=== PATIENT | male | born 1965 | race Caucasian/White ===

== ENCOUNTER 2018-02-17 17:08 | Inpatient (IN) ==
[2018-02-17] MEDS ORDERED: 0.9 % Sodium Chloride 1,000 ML IVC ONE ×2 (17:31→18:39)
[2018-02-17 17:40] LABS: Basophils # 0.1 K/mcL (0.0-0.2); Basophils % 0.4 %; Eosinophils % 0.1 %; Hematocrit 36.3 % (37.5-50.1); Hemoglobin 11.6 g/dL (12.9-16.9); Immature Granulocytes % 0.3 % (0-4); Lymphocytes # 2.2 K/mcL (0.6-4.6); Lymphocytes % 14.9 %; Mean Corpuscular Volume 81.4 fL (83.0-100.0); Mean Platelet Volume 8.4 fL (9.4-12.4); Monocytes % 6.7 %; Neutrophils # 11.5 K/mcL (1.6-8.9); Platelet Count 533 K/mcL (140-400); Red Blood Count 4.46 M/mcL (4.19-5.50); Red Cell Distribution Width 14.6 % (11.5-14.5); Segmented Neutrophils % 77.6 %
--- NOTE | 2018-02-17 17:55 | Emergency Department Note ---
Disposition Clinical Impression: Osteomyelitis, Pressure sore of left ischium, stage 4, Right ischial pressure sore, stage 4 Disposition: Admitted As Inpatient Condition: Fair General Adult HPI - General Chief complaint: ED Fever Stated complaint: "fever, bed sore" Time Seen by Provider: 02/17/18 17:20 Source: patient - History of Present Illness Pain Scale: 8 - Related Data Home Medications Medication Instructions Recorded Confirmed Baclofen 20 mg PO QID 09/19/15 02/17/18 Gabapentin [Neurontin] 800 mg PO QID 09/19/15 02/17/18 diazePAM [Valium] 1 mg PO TID 09/19/15 02/17/18 Morphine Sulfate/Naltrexone 2 tab PO BID 08/26/17 02/17/18 [Embeda ER 100-4 mg Capsule] Oxycodone HCl [Oxycontin] 20 mg PO QID 08/26/17 02/17/18 Allergies Allergy/AdvReac Type Severity Reaction Status Date / Time No Known Allergies Allergy Verified 02/17/18 17:16 Past Medical History - Past Medical History Medical history: Reports: other Surgical history: Reports: colostomy, vasectomy, other Psychiatric history: Reports: anxiety, depression - Social History Smoking Status: Current every day smoker Smokeless Tobacco Status: No Alcohol use: Reports: none Drug use: Reports: none Physical Exam - General General appearance: alert, in no apparent distress Course Vital Signs Temperature 98.5 F 02/17/18 17:16 Pulse Rate 102 02/17/18 17:16 Respiratory Rate 18 02/17/18 17:16 Blood Pressure 117/62 02/17/18 17:16 O2 Sat by Pulse Oximetry 95 02/17/18 17:16 Temperature 98.5 F 02/17/18 17:16 Pulse Rate 102 02/17/18 17:16 Respiratory Rate 18 02/17/18 17:16 Blood Pressure 117/62 02/17/18 17:16 O2 Sat by Pulse Oximetry 95 02/17/18 17:16 Oxygen Delivery Oxygen Delivery Room Air Medical Decision Making - Lab Data Result diagrams: 02/17/18 17:28 02/17/18 17:28 Lab Results 02/17/18 02/17/18 02/17/18 Range/Units 17:28 17:28 17:28 WBC 14.9 H (4.3-11.1) K/mcL RBC 4.46 (4.19-5.50) M/mcL Hgb 11.6 L (12.9-16.9) g/dL Hct 36.3 L (37.5-50.1) % MCV 81.4 L (83.0-100.0) fL MCH 26.0 L (28.0-33.3) pg MCHC 32.0 (31.6-35.5) g/dL RDW 14.6 H (11.5-14.5) % Plt Count 533 H (140-400) K/mcL MPV 8.4 L (9.4-12.4) fL Immature Gran % 0.3 (0-4) % Seg Neutrophils % 77.6 % Lymphocytes % 14.9 % Monocytes % 6.7 % Eosinophils % 0.1 % Basophils % 0.4 % Neutrophils # 11.5 H (1.6-8.9) K/mcL Lymphocytes # 2.2 (0.6-4.6) K/mcL Monocytes # 1.0 (0.0-1.3) K/mcL Eosinophils # 0.0 (0.0-0.6) K/mcL Basophils # 0.1 (0.0-0.2) K/mcL ESR >= 130 H (0-10) mm/hr Sodium 127 L (136-145) mEq/L Potassium 3.8 (3.5-5.1) mEq/L Chloride 93 L (98-107) mEq/L Carbon Dioxide 24 (23-29) mEq/L BUN 4 L (6-20) mg/dL Creatinine 0.53 L (0.70-1.30) mg/dL Est GFR ( Amer) > 60 (> 60) Est GFR (Non-Af Amer) > 60 (> 60) BUN/Creatinine Ratio 8 (6-26) Glucose 141 H (70-105) mg/dL Calculated Osmolality 263 L (280-300) Lactic Acid (0.5-2.2) mmol/L Calcium 8.5 L (8.6-10.3) mg/dL C-Reactive Protein 195 H (Less than 10) mg/L 02/17/18 Range/Units 17:43 WBC (4.3-11.1) K/mcL RBC (4.19-5.50) M/mcL Hgb (12.9-16.9) g/dL Hct (37.5-50.1) % MCV (83.0-100.0) fL MCH (28.0-33.3) pg MCHC (31.6-35.5) g/dL RDW (11.5-14.5) % Plt Count (140-400) K/mcL MPV (9.4-12.4) fL Immature Gran % (0-4) % Seg Neutrophils % % Lymphocytes % % Monocytes % % Eosinophils % % Basophils % % Neutrophils # (1.6-8.9) K/mcL Lymphocytes # (0.6-4.6) K/mcL Monocytes # (0.0-1.3) K/mcL Eosinophils # (0.0-0.6) K/mcL Basophils # (0.0-0.2) K/mcL ESR (0-10) mm/hr Sodium (136-145) mEq/L Potassium (3.5-5.1) mEq/L Chloride (98-107) mEq/L Carbon Dioxide (23-29) mEq/L BUN (6-20) mg/dL Creatinine (0.70-1.30) mg/dL Est GFR ( Amer) (> 60) Est GFR (Non-Af Amer) (> 60) BUN/Creatinine Ratio (6-26) Glucose (70-105) mg/dL Calculated Osmolality (280-300) Lactic Acid 1.5 (0.5-2.2) mmol/L Calcium (8.6-10.3) mg/dL C-Reactive Protein (Less than 10) mg/L Attestation Statement - Attestation Attestation: I examined this patient and my medical decision-making was reviewed with the Resident Physician. I agree with the documented findings, disposition and treatment plan as described except to the extent set forth below. Patient presents to the ED with chief complaint of infected sores. Fevers. Sent over from wound care. On examination he has a large full-thickness open wound to the left buttock. There is a small amount right as well. Foul- smelling serous drainage. Plan. Septic workup and admission. Patient with elevated white count. Afebrile here. Started on broad-spectrum antibiotics admitted to medicine.
[2018-02-17 18:03] LABS: BUN/Creatinine Ratio 8 (6-26); Blood Urea Nitrogen 4 mg/dL (6-20); C-Reactive Protein 195 mg/L (Less than 10); Calcium 8.5 mg/dL (8.6-10.3); Carbon Dioxide 24 mEq/L (23-29); Chloride 93 mEq/L (98-107); Glucose 141 mg/dL (70-105); Osmolality,Calculated 263 (280-300); Potassium 3.8 mEq/L (3.5-5.1); Sodium 127 mEq/L (136-145); eGFR For African Americans > 60 (> 60); eGFR For Non-African Americans > 60 (> 60)
[2018-02-17] MEDS ORDERED: Levofloxacin 750 MG/150 ML 750 MG/150 ML BAG IVPB ONE (18:39)
[2018-02-17] MEDS ORDERED: Piperacillin/Tazobactam 3.375 GM in 0.9 % Sodium Chloride Mini Bag 100 ML IVPB ONE (18:39)
--- NOTE | 2018-02-17 18:42 | Emergency Department Note ---
Disposition Clinical Impression: Pressure sore of left ischium, stage 4, Right ischial pressure sore, stage 4 Osteomyelitis Qualifiers: Osteomyelitis type: unspecified type Osteomyelitis location: multiple sites Qualified Code(s): M86.9 - Osteomyelitis, unspecified Disposition: Admitted As Inpatient Condition: Fair Referrals: NONE,PCP [Primary Care Provider] - Time of Disposition: 19:21 General Adult HPI - General Chief complaint: ED Fever Stated complaint: "fever, bed sore" Time Seen by Provider: 02/17/18 17:20 Source: patient Nursing Notes Reviewed: Yes Vital Signs Reviewed: Yes - History of Present Illness HPI Narrative: 52-year-old male presents emergency department with concern for gluteal wounds. Patient was sent here by Dr. Maldonado for admission to the hospital. He told patient to go to the emergency department first. Patient states that he has had fevers over the last few days and that there was concern for osteomyelitis. Patient is a paraplegic after falling 3 stories from a building and sustaining a back injury in 1993. Patient states that his wounds have been managed for over a year and he has had that have antibiotics before. Pain Scale: 8 - Related Data Home Medications Medication Instructions Recorded Confirmed Baclofen 20 mg PO QID 09/19/15 02/17/18 Gabapentin [Neurontin] 800 mg PO QID 09/19/15 02/17/18 diazePAM [Valium] 1 mg PO TID 09/19/15 02/17/18 Morphine Sulfate/Naltrexone 2 tab PO BID 08/26/17 02/17/18 [Embeda ER 100-4 mg Capsule] Oxycodone HCl [Oxycontin] 20 mg PO QID 08/26/17 02/17/18 Allergies Allergy/AdvReac Type Severity Reaction Status Date / Time No Known Allergies Allergy Verified 02/17/18 17:16 All systems ED: reviewed and negative except as stated. Review of Systems: As Per HPI Constitutional: Reports: fever Cardiovascular: Denies: chest pain Respiratory: Denies: cough Gastrointestinal: Denies: abdominal pain, nausea, vomiting Musculoskeletal: Reports: back pain Integumentary: Reports: other (Sacral decubiti) Past Medical History - Past Medical History Medical history: Reports: other Surgical history: Reports: colostomy, vasectomy, other Psychiatric history: Reports: anxiety, depression - Social History Smoking Status: Current every day smoker Smokeless Tobacco Status: No Alcohol use: Reports: none Drug use: Reports: none Physical Exam - General General appearance: alert, in no apparent distress - Head Head exam: atraumatic, normocephalic - Eye Eye exam: Present: EOMI. Absent: scleral icterus - ENT ENT exam: normal exam, normal oropharynx - Neck Neck exam: Present: trachea midline. Absent: tenderness, meningismus - Chest Chest inspection: Present: normal inspection, symmetric chest wall rise - Respiratory Respiratory exam: Present: normal lung sounds bilaterally. Absent: respiratory distress, accessory muscle use - Cardiovascular Cardiovascular exam: Present: normal rhythm, tachycardia - Abdominal Exam Abdominal exam: Present: soft, Non-Tender. Absent: distention, guarding, rebound - Rectal Exam Rectal exam: Present: other (Patient has 2 sacral decubiti that track to bone in the gluteal region. One is approximately 6 inches in diameter, the other 3 inches in diameter Muscle and bone involvement, serosanguineous fluid, malodorous) - Back Exam Back exam: Absent: CVA tenderness (R), CVA tenderness (L) - Neurological Exam Neurological exam: Present: alert - Psychiatric Psychiatric exam: Present: normal affect, normal mood Course Vital Signs Temperature 98.5 F 02/17/18 17:16 Pulse Rate 102 02/17/18 17:16 Respiratory Rate 18 02/17/18 17:16 Blood Pressure 117/62 02/17/18 17:16 O2 Sat by Pulse Oximetry 95 02/17/18 17:16 Temperature 98.5 F 02/17/18 17:16 Pulse Rate 102 02/17/18 17:16 Respiratory Rate 18 02/17/18 17:16 Blood Pressure 117/62 02/17/18 17:16 O2 Sat by Pulse Oximetry 95 02/17/18 17:16 Oxygen Delivery Oxygen Delivery Room Air Medical Decision Making - [facility] Narrative Medical decision making narrative: 52-year-old male presents emergency department with concern for osteomyelitis. Sent here by general surgeon Dr. Maldonado. Patient states that he was sent here specifically for admission to the hospital. Patient was reporting fever at home , but afebrile here. Tachycardic. Patient is given 2 L of fluid here in the emergency department. On exam of sacral wounds, he has two stage IV pressure ulcers in the gluteal region. I have obtained wound cultures both aerobic and anaerobic. Patient was given vancomycin here in the emergency department as well as Zosyn and Levaquin to add double coverage for pseudomonas. Patient does not have elevated lactic acid. Patient is hyponatremic with sodium of 127. At this time, this is most likely hypovolemic hypernatremia. However, I will obtain TSH and urine sodium to be followed up in the hospital. Sedimentation rate is greater than 130. CRP is elevated as well. General surgery consult has been placed. I spoke with hospitalist, Dr. Puente who agreed to accept the patient for admission. Stated to keep patient on telemetry while inpatient. Vital Signs Temperature 98.5 F 02/17/18 17:16 Pulse Rate 102 02/17/18 17:16 Respiratory Rate 18 02/17/18 17:16 Blood Pressure 117/62 02/17/18 17:16 O2 Sat by Pulse Oximetry 95 02/17/18 17:16 Temperature 98.5 F 02/17/18 17:16 Pulse Rate 102 02/17/18 17:16 Respiratory Rate 18 02/17/18 17:16 Blood Pressure 117/62 02/17/18 17:16 O2 Sat by Pulse Oximetry 95 02/17/18 17:16 Oxygen Delivery Oxygen Delivery Room Air - Lab Data Result diagrams: 02/17/18 17:28 02/17/18 17:28 Lab Results 02/17/18 02/17/18 02/17/18 Range/Units 17:28 17:28 17:28 WBC 14.9 H (4.3-11.1) K/mcL RBC 4.46 (4.19-5.50) M/mcL Hgb 11.6 L (12.9-16.9) g/dL Hct 36.3 L (37.5-50.1) % MCV 81.4 L (83.0-100.0) fL MCH 26.0 L (28.0-33.3) pg MCHC 32.0 (31.6-35.5) g/dL RDW 14.6 H (11.5-14.5) % Plt Count 533 H (140-400) K/mcL MPV 8.4 L (9.4-12.4) fL Immature Gran % 0.3 (0-4) % Seg Neutrophils % 77.6 % Lymphocytes % 14.9 % Monocytes % 6.7 % Eosinophils % 0.1 % Basophils % 0.4 % Neutrophils # 11.5 H (1.6-8.9) K/mcL Lymphocytes # 2.2 (0.6-4.6) K/mcL Monocytes # 1.0 (0.0-1.3) K/mcL Eosinophils # 0.0 (0.0-0.6) K/mcL Basophils # 0.1 (0.0-0.2) K/mcL ESR >= 130 H (0-10) mm/hr Sodium 127 L (136-145) mEq/L Potassium 3.8 (3.5-5.1) mEq/L Chloride 93 L (98-107) mEq/L Carbon Dioxide 24 (23-29) mEq/L BUN 4 L (6-20) mg/dL Creatinine 0.53 L (0.70-1.30) mg/dL Est GFR ( Amer) > 60 (> 60) Est GFR (Non-Af Amer) > 60 (> 60) BUN/Creatinine Ratio 8 (6-26) Glucose 141 H (70-105) mg/dL Calculated Osmolality 263 L (280-300) Lactic Acid (0.5-2.2) mmol/L Calcium 8.5 L (8.6-10.3) mg/dL C-Reactive Protein 195 H (Less than 10) mg/L 02/17/18 Range/Units 17:43 WBC (4.3-11.1) K/mcL RBC (4.19-5.50) M/mcL Hgb (12.9-16.9) g/dL Hct (37.5-50.1) % MCV (83.0-100.0) fL MCH (28.0-33.3) pg MCHC (31.6-35.5) g/dL RDW (11.5-14.5) % Plt Count (140-400) K/mcL MPV (9.4-12.4) fL Immature Gran % (0-4) % Seg Neutrophils % % Lymphocytes % % Monocytes % % Eosinophils % % Basophils % % Neutrophils # (1.6-8.9) K/mcL Lymphocytes # (0.6-4.6) K/mcL Monocytes # (0.0-1.3) K/mcL Eosinophils # (0.0-0.6) K/mcL Basophils # (0.0-0.2) K/mcL ESR (0-10) mm/hr Sodium (136-145) mEq/L Potassium (3.5-5.1) mEq/L Chloride (98-107) mEq/L Carbon Dioxide (23-29) mEq/L BUN (6-20) mg/dL Creatinine (0.70-1.30) mg/dL Est GFR ( Amer) (> 60) Est GFR (Non-Af Amer) (> 60) BUN/Creatinine Ratio (6-26) Glucose (70-105) mg/dL Calculated Osmolality (280-300) Lactic Acid 1.5 (0.5-2.2) mmol/L Calcium (8.6-10.3) mg/dL C-Reactive Protein (Less than 10) mg/L
[2018-02-17 19:46] LABS: Thyroid Stimulating Hormone 1.178 mcIU/mL (0.340-5.600)
--- NOTE | 2018-02-17 19:50 | General Surgery Consult Note ---
Date of Encounter: 02/17/18 Time of Encounter: 19:48 Assessment and Plan (1) Pressure sore of left ischium, stage 4 Current Visit: Yes Status: Chronic admit start IV abx consult to ID wet to dry dressings daily changes no acute surgery q2hrs turns for pressure off loading (2) Osteomyelitis Current Visit: Yes Status: Acute see above Qualifiers: Osteomyelitis type: unspecified type Osteomyelitis location: multiple sites Qualified Code(s): M86.9 - Osteomyelitis, unspecified History of Present Illness Consult date: 02/17/18 Reason for consult: wound care History of present illness: Mr. Bhardwaj is a 52 year old male with bilateral ischial wounds. He is well known to the wound clinic. he presented for evaluation in the wound clinic and it was noticed that there was exposure of bone. In addition, he had temperature of 100.8 and feeling generalized malaise and tachycardic in wound clinic. Past Med Surg Social Fam HX - Past Medical History Medical history: other Additional medical history: paraplegia, osteomylitis Psychiatric history: anxiety, depression - Past Surgical History Surgical History: colostomy, vasectomy, other Additional surgical history: myocutaneous flap right ishium - Social History Smoking Status: Current every day smoker Smokeless Tobacco Status: No Alcohol use: none Drug use: none - Family History Mother Adopted: No Family Member Ethnicity: Non- Living Status: Still Living Hx Family Cardiac Disorders: No Hx Family Respiratory Disorders: No Hx Family Cancer: No Hx Family GI Disorders: No Hx Family Endocrine Disorder: Yes Hx Family Neuromuscular Disorders: No Hx Family Neurologic Disorders: No Hx Family HEENT Disorders: No Hx Family Autoimmune Disorders: No Brother Adopted: No Living Status: Still Living Hx Family Cardiac Disorders: No Hx Family Respiratory Disorders: No Hx Family Cancer: No Hx Family GI Disorders: No Hx Family Endocrine Disorder: No Hx Family Neuromuscular Disorders: No Hx Family Neurologic Disorders: No Hx Family HEENT Disorders: No Hx Family Autoimmune Disorders: No Medications and Allergies Baclofen 20 mg PO QID 09/19/15 [History] Gabapentin [Neurontin] 800 mg PO QID 09/19/15 [History] diazePAM [Valium] 1 mg PO TID 09/19/15 [History] Morphine Sulfate/Naltrexone [Embeda ER 100-4 mg Capsule] 2 tab PO BID 08/26/17 [ History] Oxycodone HCl [Oxycontin] 20 mg PO QID 08/26/17 [History] 3 Allergy/AdvReac Type Severity Reaction Status Date / Time No Known Allergies Allergy Verified 02/17/18 17:16 Review of Systems All systems PM: The remainder of the systems were reviewed and are negative General Surgery Exam Initial Vital Signs Temp Pulse Resp BP Pulse Ox 98.5 F 102 18 117/62 95 02/17/18 17:16 02/17/18 17:16 02/17/18 17:16 02/17/18 17:16 02/17/18 17:16 - General physical appearance no distress - Eyes normal ocular movement - ENT normocephalic - Neck no lymphadectomy - Respiratory normal expansion, normal respiratory effort - Cardiovascular Cardiovascular exam: Present: RRR - Abdomen Abdomen general surgery: Present: soft, non tender - Rectum Rectum: Present: other (bilateral ischial wounds; good, viable tissue; exposure of bone; ) - Neurologic Present: CN 2-12 grossly intact - Musculoskeletal Present: normal posture - Psychiatric Psychiatric general surgery: Present: A&Ox3 Exam Initial Vital Signs Temp Pulse Resp BP Pulse Ox 98.5 F 102 18 117/62 95 02/17/18 17:16 02/17/18 17:16 02/17/18 17:16 02/17/18 17:16 02/17/18 17:16 Results - Labs 02/17/18 17:28 02/17/18 17:28 Abnormal lab results WBC 14.9 K/mcL (4.3-11.1) H 02/17/18 17:28 Hgb 11.6 g/dL (12.9-16.9) L 02/17/18 17:28 Hct 36.3 % (37.5-50.1) L 02/17/18 17:28 MCV 81.4 fL (83.0-100.0) L 02/17/18 17:28 MCH 26.0 pg (28.0-33.3) L 02/17/18 17:28 RDW 14.6 % (11.5-14.5) H 02/17/18 17:28 Plt Count 533 K/mcL (140-400) H 02/17/18 17:28 MPV 8.4 fL (9.4-12.4) L 02/17/18 17:28 Neutrophils # 11.5 K/mcL (1.6-8.9) H 02/17/18 17:28 ESR >= 130 mm/hr (0-10) H 02/17/18 17:28 Sodium 127 mEq/L (136-145) L 02/17/18 17:28 Chloride 93 mEq/L (98-107) L 02/17/18 17:28 BUN 4 mg/dL (6-20) L 02/17/18 17:28 Creatinine 0.53 mg/dL (0.70-1.30) L 02/17/18 17:28 Glucose 141 mg/dL (70-105) H 02/17/18 17:28 Calculated Osmolality 263 (280-300) L 02/17/18 17:28 Calcium 8.5 mg/dL (8.6-10.3) L 02/17/18 17:28 C-Reactive Protein 195 mg/L (Less than 10) H 02/17/18 17:28 All other labs normal. Consult Discharge Plan - Plan Referrals: NONE,PCP [Primary Care Provider] -
--- NOTE | 2018-02-17 23:54 | Internal Med History&Physical ---
Date of Encounter: 02/17/18 Time of Encounter: 23:45 Internal Medicine - H&P: HPI Admitted From: Emergency Dept Plans for Post Hospital Care: Transfer Alf Care History of present illness: Mr. Bhardwaj is a 52 year old male malnutrition, traumatic injury (pt fell 3 stories from a roof at his job in 1993), quadraplegia secondary to injury, stage IV decub ulcer. Pt was sent to the ED by general surgery from wound care. Dr. Maldonado had seen the patient and was concerned he may have osteomylitis. Pt was drowsy but responded appropriately to my questions when awake. He reported in ED that he had been having fevers over the past few days. Pt reported hat his wound has been managed for a year. He also reports that he had been on antibiotic previously for the wound. Pt reports that he has lost most of his sensations from his back/shoulder blades to is B/L LE. In Ed 14.9, hgb 11.6, hct 36.3, plt 533. Na 127, K 3.8, BUN 4, Cr 0.53. C-reactive protein 195 Past Med Surg Social Fam HX - Past Medical History Medical history: other Additional medical history: paraplegia, osteomylitis Psychiatric history: anxiety, depression - Past Surgical History Surgical History: colostomy, vasectomy, other Additional surgical history: myocutaneous flap right ishium - Social History Smoking Status: Current every day smoker Packs per day: 1 Smokeless Tobacco Status: No Alcohol use: none Drug use: none - Family History Mother Adopted: No Family Member Ethnicity: Non- Living Status: Still Living Hx Family Cardiac Disorders: No Hx Family Respiratory Disorders: No Hx Family Cancer: No Hx Family GI Disorders: No Hx Family Endocrine Disorder: Yes Hx Family Neuromuscular Disorders: No Hx Family Neurologic Disorders: No Hx Family HEENT Disorders: No Hx Family Autoimmune Disorders: No Brother Adopted: No Living Status: Still Living Hx Family Cardiac Disorders: No Hx Family Respiratory Disorders: No Hx Family Cancer: No Hx Family GI Disorders: No Hx Family Endocrine Disorder: No Hx Family Neuromuscular Disorders: No Hx Family Neurologic Disorders: No Hx Family HEENT Disorders: No Hx Family Autoimmune Disorders: No Internal Medicine - H&P: Meds Baclofen 20 mg PO QID 09/19/15 [History] Gabapentin [Neurontin] 800 mg PO QID 09/19/15 [History] diazePAM [Valium] 1 mg PO TID 09/19/15 [History] Morphine Sulfate/Naltrexone [Embeda ER 100-4 mg Capsule] 2 tab PO BID 08/26/17 [ History] Oxycodone HCl [Oxycontin] 20 mg PO QID 08/26/17 [History] 3 Allergy/AdvReac Type Severity Reaction Status Date / Time No Known Allergies Allergy Verified 02/17/18 17:16 All Systems PM: A 10-system review of systems was performed and is negative for pertinent findings except as documented above in the HPI. - Constitutional Vitals: Temp Pulse Resp BP Pulse Ox 98.5 F 87 16 95/59 98 02/17/18 21:36 02/17/18 21:36 02/17/18 21:36 02/17/18 21:36 02/17/18 21:36 General appearance: Present: A&O X 3, no acute distress, underweight - Head Head exam: Present: atraumatic, normocephalic - Eye Eye exam: Present: PERRL, conjuntiva pink, sclera anicteric Pupils: Present: PERRL - Neck Neck exam general surgery: Present: supple, trachea midline. Absent: lymphadenopathy - Respiratory Respiratory exam: Present: CTAB. Absent: accessory muscle use, rales, rhonchi, wheezes - Cardiovascular Cardiovascular exam: Present: RRR, +S1, +S2. Absent: diastolic murmur, gallop, rubs, systolic murmur - GI/Abdominal GI/Abdominal exam: Present: normal bowel sounds, soft, no peritoneal signs. Absent: distended, tenderness - Extremities Exam Extremities exam: Present: warm, radial pulses palpable and symmetrical. Absent : calf tenderness, cyanotic, pedal edema - Neurological Exam Neurological exam: Present: CN II-XII intact, oriented X3, no focal deficits. Absent: pronater drift, facial droop, speech deficit - Skin Skin exam: Present: dry Additional comments: Large stage IV sacral decub ulcer. Bilateral ishial wounds, open to the bone. Internal Med - H&P Results - Labs CBC & Chem 7: 02/17/18 17:28 02/17/18 17:28 - Assessment and plan (1) Pressure sore of left ischium, stage 4 Current Visit: Yes Status: Chronic Assessment and plan: Surgery following (2) Osteomyelitis Current Visit: Yes Status: Acute Assessment and plan: Pt sent over for admission by surgery. Surgery on board. On IV antibiotic. Qualifiers: Osteomyelitis type: unspecified type Osteomyelitis location: multiple sites Qualified Code(s): M86.9 - Osteomyelitis, unspecified (3) Quadriplegia Current Visit: Yes Status: Chronic - Time Spent With Patient Total time spent is greater than 50% in coordination of care (as documented) at patient's floor/unit and/or counseling patient: 25 - 35 minutes
[2018-02-18] MEDS ORDERED: Acetaminophen 325 MG TABLET PO PRN (00:19)
[2018-02-18] MEDS ORDERED: Naloxone 0.4 MG/ML INJ IVP PRN (00:19)
[2018-02-18 00:29] LABS: Bilirubin,Urine Negative (Negative); Blood,Urine Trace (Negative); Clarity,Urine Cloudy (Clear); Color,Urine Yellow (Yellow); Glucose,Urine (UA) Normal (Normal); Ketones,Urine Negative (Negative); Leukocyte Esterase,Urine Large (Negative); Nitrite,Urine Negative (Negative); Protein,Urine Negative (Neg-Trace); Specific Gravity,Urine 1.009 (1.010-1.025); Urobilinogen,Urine Normal (Normal)
[2018-02-18 00:44] LABS: Bacteria,Urine Moderate per hpf (None-Few); Squamous Epithelial Cell,Urine Few per lpf (None-Few); WBC,Urine 15-30 per hpf (0-3)
[2018-02-18 00:45] LABS: Yeast,Urine Few per hpf (None Seen)
[2018-02-18 05:03] LABS: Basophils % 0.4 %; Eosinophils % 0.3 %; Hematocrit 33.5 % (37.5-50.1); Hemoglobin 10.4 g/dL (12.9-16.9); Immature Granulocytes % 0.5 % (0-4); Lymphocytes # 2.5 K/mcL (0.6-4.6); Lymphocytes % 24.1 %; Mean Corpuscular Hemoglobin 25.7 pg (28.0-33.3); Mean Corpuscular Volume 82.7 fL (83.0-100.0); Mean Platelet Volume 8.7 fL (9.4-12.4); Monocytes # 0.9 K/mcL (0.0-1.3); Monocytes % 9.1 %; Neutrophils # 6.8 K/mcL (1.6-8.9); Platelet Count 449 K/mcL (140-400); Red Blood Count 4.05 M/mcL (4.19-5.50); Red Cell Distribution Width 14.7 % (11.5-14.5); Segmented Neutrophils % 65.6 %
[2018-02-18 05:22] LABS: BUN/Creatinine Ratio 9 (6-26); Blood Urea Nitrogen 4 mg/dL (6-20); Calcium 7.9 mg/dL (8.6-10.3); Carbon Dioxide 25 mEq/L (23-29); Chloride 103 mEq/L (98-107); Glucose 102 mg/dL (70-105); Osmolality,Calculated 275 (280-300); Potassium 3.7 mEq/L (3.5-5.1); Sodium 134 mEq/L (136-145); eGFR For African Americans > 60 (> 60); eGFR For Non-African Americans > 60 (> 60)
[2018-02-18] MEDS: Gabapentin 400 MG CAPSULE PO SCH ×4 (08:43→23:07)
[2018-02-18] MEDS: *HR* OxyCODONE ER (12 HR) 20 MG TABLET PO SCH ×4 (08:43→23:08)
[2018-02-18] MEDS: diazePAM 2 MG TABLET PO SCH ×3 (08:43→23:08)
[2018-02-18] MEDS: Baclofen 10 MG TABLET PO SCH ×4 (08:43→23:08)
[2018-02-18] MEDS: NALTREXONE PO SCH ×2 (08:44→22:59)
[2018-02-18] MEDS: MORPHINE SULFATE PO SCH ×2 (08:44→22:59)
--- NOTE | 2018-02-18 11:22 | General Surgery Progress Note ---
Date of Encounter: 02/18/18 Time of Encounter: 11:19 - Assessment and Plan (1) Pressure sore of left ischium, stage 4 Current Visit: Yes Status: Chronic patient will need low air loss mattress ID consult for abx regimen for osteomyelitis turn q2hrs daily dressing changes no acute surgery (2) Osteomyelitis Current Visit: Yes Status: Acute see above Qualifiers: Osteomyelitis type: unspecified type Osteomyelitis location: multiple sites Qualified Code(s): M86.9 - Osteomyelitis, unspecified Subjective Patient reports: no new complaints Objective Vital Signs - Last 8 Hours Temp Pulse Resp BP Pulse Ox 02/18/18 07:32 98.1 F 74 15 90/58 97 02/18/18 03:20 97.5 F L 76 16 95/60 97 Intake and Output 02/17/18 02/18/18 02/18/18 23:59 07:59 15:59 Intake Total 600 / 600 Output Total 850 / 1425 Balance -250 / -825 Intake: IV Fluids 400 / 400 Levaquin Premix 750mg/150 mL 150 / 150 750 mg In 150 ml @ 100 mls/hr IVPB ONCE ONE Rx#:[id number] Vancocin 1,000 MG In 0.9 % 250 / 250 Sodium Chloride 250 ML @ 167 mls/hr IVPB ONCE ONE Rx#: [id number] Oral 200 / 200 Output: Stool 0 / 0 Catheter 850 / 1425 - General physical appearance no distress - Respiratory normal expansion, normal respiratory effort - Cardiovascular Cardiovascular exam: Present: RRR - Abdomen Abdomen: Present: soft, non tender - Integumentary other (stage IV bilateral ischial wounds; no necrotic tissue) - Neurologic CN 2-12 grossly intact - Musculoskeletal normal posture - Labs 02/18/18 04:06 02/18/18 04:06 Diabetes panel 02/18/18 Range/Units 04:06 Sodium 134 L (136-145) mEq/L Potassium 3.7 (3.5-5.1) mEq/L Chloride 103 (98-107) mEq/L Carbon Dioxide 25 (23-29) mEq/L BUN 4 L (6-20) mg/dL Creatinine 0.43 L (0.70-1.30) mg/dL Glucose 102 (70-105) mg/dL Calcium 7.9 L (8.6-10.3) mg/dL Calcium panel 02/18/18 Range/Units 04:06 Calcium 7.9 L (8.6-10.3) mg/dL Pituitary panel 02/18/18 Range/Units 04:06 Sodium 134 L (136-145) mEq/L Potassium 3.7 (3.5-5.1) mEq/L Chloride 103 (98-107) mEq/L Carbon Dioxide 25 (23-29) mEq/L BUN 4 L (6-20) mg/dL Creatinine 0.43 L (0.70-1.30) mg/dL Glucose 102 (70-105) mg/dL Calcium 7.9 L (8.6-10.3) mg/dL Adrenal panel 02/18/18 Range/Units 04:06 Sodium 134 L (136-145) mEq/L Potassium 3.7 (3.5-5.1) mEq/L Chloride 103 (98-107) mEq/L Carbon Dioxide 25 (23-29) mEq/L BUN 4 L (6-20) mg/dL Creatinine 0.43 L (0.70-1.30) mg/dL Glucose 102 (70-105) mg/dL Calcium 7.9 L (8.6-10.3) mg/dL Consult Discharge Plan - Plan Referrals: NONE,PCP [Primary Care Provider] -
--- NOTE | 2018-02-18 13:46 | Internal Med Progress Note ---
Date of Encounter: 02/18/18 Time of Encounter: 11:15 - Assessment and plan (1) Osteomyelitis Current Visit: Yes Status: Suspected Assessment and plan: Patient with stage IV ischial decubitus ulcer with exposed bone concerning for osteomyelitis. Surgery following. Plan to do a bone biopsy on Tuesday. In the meantime, monitor vital signs. Infectious disease was consulted. At this time they do not recommend starting patient on antibiotics. Will follow cultures closely. If patient does develop any fever or chills, we will start antibiotics immediately. Qualifiers: Osteomyelitis type: other Osteomyelitis location: multiple sites Qualified Code(s): M86.8X0 - Other osteomyelitis, multiple sites (2) Pressure sore of left ischium, stage 4 Current Visit: Yes Status: Chronic Assessment and plan: With exposed bone. Surgery consulted. Continue supportive care. Plan for bone biopsy on Tuesday. High risk for complications. Pressure ulcer prophylactic measures. Frequent turning. Air mattress. (3) Quadriplegia Current Visit: Yes Status: Chronic Assessment and plan: Patient is bedbound with multiple decubitus ulcers. Supportive care. (4) Malnutrition Current Visit: No Status: Chronic Assessment and plan: Nutrition consulted. We will follow recommendations. Qualifiers: Malnutrition type: protein-calorie malnutrition Protein-calorie malnutrition severity: severe Qualified Code(s): E43 - Unspecified severe protein-calorie malnutrition - Time Spent With Patient Total time spent is greater than 50% in coordination of care (as documented) at patient's floor/unit and/or counseling patient: - Subjective Interval history: Patient is lying in bed. Comfortable besides pain in his back. No fever or chills reported overnight. - Constitutional Vitals: Temp Pulse Resp BP Pulse Ox 97.5 F L 76 16 91/53 99 02/18/18 11:48 02/18/18 11:48 02/18/18 11:48 02/18/18 11:48 02/18/18 11:48 General appearance: Present: A&O X 3, no acute distress, underweight - Neck Neck exam general surgery: Present: supple, trachea midline. Absent: lymphadenopathy - Respiratory Respiratory exam: Present: CTAB. Absent: accessory muscle use, rales, rhonchi, wheezes - Cardiovascular Cardiovascular exam: Present: RRR, +S1, +S2. Absent: diastolic murmur, gallop, rubs, systolic murmur - Neurological Exam Neurological exam: Present: alert, oriented X3, no focal deficits. Absent: facial droop, speech deficit Internal Medicine: Result - Labs CBC & Chem 7: 02/18/18 04:06 02/18/18 04:06 Labs: Short CBC 02/18/18 Range/Units 04:06 WBC 10.3 (4.3-11.1) K/mcL Hgb 10.4 L (12.9-16.9) g/dL Hct 33.5 L (37.5-50.1) % Plt Count 449 H (140-400) K/mcL Neutrophils # 6.8 (1.6-8.9) K/mcL BMP 02/18/18 04:06 Sodium 134 L Potassium 3.7 Chloride 103 Carbon Dioxide 25 BUN 4 L Creatinine 0.43 L Glucose 102 Calcium 7.9 L Consult Discharge Plan - Plan Referrals: NONE,PCP [Primary Care Provider] -
[2018-02-19 01:29] LABS: Hematocrit 30.8 % (37.5-50.1); Hemoglobin 9.6 g/dL (12.9-16.9)
[2018-02-19 02:02] LABS: Basophils # 0.1 K/mcL (0.0-0.2); Basophils % 0.5 %; Eosinophils # 0.1 K/mcL (0.0-0.6); Eosinophils % 0.4 %; Immature Granulocytes % 0.2 % (0-4); Immature Platelets 1.2 % (1.1-6.1); Lymphocytes % 22.9 %; Mean Corpuscular Hemoglobin 25.8 pg (28.0-33.3); Mean Corpuscular Volume 83.3 fL (83.0-100.0); Mean Platelet Volume 8.6 fL (9.4-12.4); Monocytes # 1.1 K/mcL (0.0-1.3); Monocytes % 8.4 %; Neutrophils # 8.8 K/mcL (1.6-8.9); Platelet Count 517 K/mcL (140-400); Red Blood Count 3.72 M/mcL (4.19-5.50); Red Cell Distribution Width 14.8 % (11.5-14.5); Segmented Neutrophils % 67.6 %
[2018-02-19 04:41] LABS: Hematocrit 31.5 % (37.5-50.1); Hemoglobin 9.8 g/dL (12.9-16.9)
[2018-02-19] MEDS ORDERED: Piperacillin/Tazobactam 3.375 GM in 0.9 % Sodium Chloride Mini Bag 100 ML IVPB SCH (08:00)
[2018-02-19] MEDS ORDERED: Aminoglycoside Consult 1 EACH MC ONE (08:20)
[2018-02-19] MEDS: diazePAM 2 MG TABLET PO SCH ×3 (08:21→23:01)
[2018-02-19] MEDS: Baclofen 10 MG TABLET PO SCH ×4 (08:21→21:44)
[2018-02-19] MEDS: MORPHINE SULFATE PO SCH ×4 (08:21→23:52)
[2018-02-19] MEDS: *HR* OxyCODONE ER (12 HR) 20 MG TABLET PO SCH ×4 (08:21→23:06)
[2018-02-19] MEDS: NALTREXONE PO SCH ×4 (08:21→23:52)
[2018-02-19] MEDS: Gabapentin 400 MG CAPSULE PO SCH ×4 (08:22→21:44)
[2018-02-19 11:26] LABS: Acinetobacter baumannii by PCR Not Detected (Not Detect); Candida albicans by PCR Not Detected (Not Detect); Candida glabrata by PCR Not Detected (Not Detect); Candida krusei by PCR Not Detected (Not Detect); Candida parapsilosis by PCR Not Detected (Not Detect); Candida tropicalis by PCR Not Detected (Not Detect); Enterococcus by PCR Not Detected (Not Detect); Escherichia coli by PCR Not Detected (Not Detect); Klebsiella oxytoca by PCR Not Detected (Not Detect); Klebsiella pneumoniae by PCR Not Detected (Not Detect); Pseudomonas aeruginosa by PCR Not Detected (Not Detect); Serratia marcescens by PCR Not Detected (Not Detect); Staphylococcus aureus by PCR Not Detected (Not Detect); Streptococcus agalactiae(B)PCR Not Detected (Not Detect); Streptococcus by PCR Not Detected (Not Detect); Streptococcus pneumoniae PCR Not Detected (Not Detect); Streptococcus pyogenes (A) PCR Not Detected (Not Detect)
--- NOTE | 2018-02-19 12:00 | General Surgery Progress Note ---
<Yared Augustin - Last Filed: 02/19/18 11:58> Date of Encounter: 02/19/18 Time of Encounter: 08:50 - Assessment and Plan (1) Pressure ulcer of ischial area, stage 4 Current Visit: Yes Status: Acute ID consult for antibiotic coverage - plan for bone biopsy on Tuesday Blood culture positive - gram positive cocci - antibiotics per primary and ID Turn Q2H Daily wet to dry dressing changes No acute surgery Qualifiers: Laterality: unspecified laterality Qualified Code(s): L89.304 - Pressure ulcer of unspecified buttock, stage 4 (2) Osteomyelitis Current Visit: Yes Status: Suspected As above Qualifiers: Osteomyelitis type: other Osteomyelitis location: multiple sites Qualified Code(s): M86.8X0 - Other osteomyelitis, multiple sites Subjective Patient reports: no new complaints, afebrile Narrative: RN reports bleeding from right sided wound last PM that took several minutes to control the bleeding Objective Vital Signs - Last 8 Hours Temp Pulse Resp BP Pulse Ox 02/19/18 11:30 98.0 F 82 17 80/52 94 02/19/18 07:52 97.7 F 87 18 100/64 96 02/19/18 04:46 98.6 F 91 14 99/62 96 Intake and Output 02/18/18 02/19/18 02/19/18 23:59 07:59 15:59 Intake Total 240 / 240 240 / 240 Output Total 900 / 900 1250 / 1250 400 / 400 Balance -660 / -660 -1250 / -1250 -160 / -160 Intake: Oral 240 / 240 240 / 240 Output: Catheter 900 / 900 1250 / 1250 400 / 400 Other: Meal Dinner Breakfast Percent of Meal Consumed 80% 100% Weight 55.5 kg Patient Weight 02/19/18 23:59 Weight 55.5 kg - General physical appearance no distress - Respiratory normal expansion, normal respiratory effort - Cardiovascular Cardiovascular exam: Present: RRR - Abdomen Abdomen: Present: soft, non tender - Integumentary other (stage IV bilateral ischial wounds, no necrotic tissue. Serosanginous drainage on gauze) - Labs 02/19/18 04:26 02/18/18 04:06 Consult Discharge Plan - Plan Referrals: NONE,PCP [Primary Care Provider] - <Glenn Markham - Last Filed: 02/19/18 12:52> Date of Encounter: 02/19/18 - Assessment and Plan (1) Pressure sore of left ischium, stage 4 Current Visit: Yes Status: Chronic (2) Osteomyelitis Current Visit: Yes Status: Suspected Qualifiers: Osteomyelitis type: other Osteomyelitis location: multiple sites Qualified Code(s): M86.8X0 - Other osteomyelitis, multiple sites Objective Vital Signs - Last 8 Hours Temp Pulse Resp BP Pulse Ox 02/19/18 11:30 98.0 F 82 17 80/52 94 02/19/18 07:52 97.7 F 87 18 100/64 96 Intake and Output 02/18/18 02/19/18 02/19/18 23:59 07:59 15:59 Intake Total 240 / 240 240 / 240 Output Total 900 / 900 1250 / 1250 400 / 400 Balance -660 / -660 -1250 / -1250 -160 / -160 Intake: Oral 240 / 240 240 / 240 Output: Catheter 900 / 900 1250 / 1250 400 / 400 Other: Meal Dinner Breakfast Percent of Meal Consumed 80% 100% Weight 55.5 kg Patient Weight 02/19/18 23:59 Weight 55.5 kg - Labs 02/19/18 04:26 02/18/18 04:06 - Attending Attestation I have personally seen and examined the patient. I have reviewed pertinent labs , imaging, progress notes, including this one. I agree with the above assessment and plan and wish to include the following... bone biopsy per Dr. Madelin khan per primary team cont with dressing/wound care regimen
[2018-02-19] MEDS ORDERED: 0.9 % Sodium Chloride 1,000 ML IVC ONE (13:05)
--- NOTE | 2018-02-19 16:01 | Internal Med Progress Note ---
Date of Encounter: 02/19/18 Time of Encounter: 09:15 - Assessment and plan (1) Osteomyelitis Current Visit: Yes Status: Suspected Assessment and plan: Blood culture positive for gram-positive cocci however serology has been negative. Likely contaminant. We will stop antibiotics for now. Bone biopsy planned for tomorrow. Infectious disease consulted. Moderate risk for complications. Qualifiers: Osteomyelitis type: other Osteomyelitis location: multiple sites Qualified Code(s): M86.8X0 - Other osteomyelitis, multiple sites (2) Pressure sore of left ischium, stage 4 Current Visit: Yes Status: Chronic Assessment and plan: Continue pressure ulcer prophylactic measures. Air mattress. Frequent repositioning. (3) Malnutrition Current Visit: No Status: Chronic Assessment and plan: Nutrition consulted. Patient has been placed on Ensure Plus 3 times a day. Qualifiers: Malnutrition type: protein-calorie malnutrition Protein-calorie malnutrition severity: severe Qualified Code(s): E43 - Unspecified severe protein-calorie malnutrition (4) Paraplegia Current Visit: Yes Status: Chronic - Time Spent With Patient Total time spent is greater than 50% in coordination of care (as documented) at patient's floor/unit and/or counseling patient: - Subjective Interval history: Patient feels better today. Lying on air mattress. Low grade fever. - Constitutional Vitals: Temp Pulse Resp BP Pulse Ox 98.4 F 85 18 106/67 98 02/19/18 15:23 02/19/18 15:23 02/19/18 15:23 02/19/18 15:23 02/19/18 15:23 General appearance: Present: A&O X 3, no acute distress, underweight - Respiratory Respiratory exam: Present: CTAB. Absent: accessory muscle use, rales, rhonchi, wheezes - Cardiovascular Cardiovascular exam: Present: RRR, +S1, +S2. Absent: diastolic murmur, gallop, rubs, systolic murmur - GI/Abdominal GI/Abdominal exam: Present: normal bowel sounds, soft, no peritoneal signs. Absent: distended, tenderness - Back Exam Additional comments: Sacral stage IV decubitus ulcer - Neurological Exam Additional comments: Patient is paraplegic. No strength in both lower stomach is. Patient does have normal strength in upper extremities. - Skin Skin exam: Present: dry, intact Additional comments: Decubitus ulcers in both heels Internal Medicine: Result - Labs CBC & Chem 7: 02/19/18 04:26 02/18/18 04:06 Labs: Short CBC 02/19/18 02/19/18 02/19/18 Range/Units 01:19 01:19 04:26 WBC 13.0 H (4.3-11.1) K/mcL Hgb TNP 9.6 L 9.8 L Hct TNP 30.8 L 31.5 L Plt Count 517 H (140-400) K/mcL Neutrophils # 8.8 (1.6-8.9) K/mcL Consult Discharge Plan - Plan Referrals: NONE,PCP [Primary Care Provider] -
[2018-02-19] MEDS: 0.9 % Sodium Chloride 1,000 ML IVC SCH (21:32)
[2018-02-19] MEDS ORDERED: MORPHINE SULFATE PO SCH (23:30)
[2018-02-19] MEDS ORDERED: NALTREXONE PO SCH (23:30)
[2018-02-20] MEDS: NALTREXONE PO SCH ×3 (00:27→22:53)
[2018-02-20] MEDS: MORPHINE SULFATE PO SCH ×3 (00:27→22:53)
[2018-02-20 01:24] LABS: Basophils # 0.1 K/mcL (0.0-0.2); Basophils % 0.6 %; Eosinophils # 0.4 K/mcL (0.0-0.6); Eosinophils % 3.9 %; Hematocrit 30.1 % (37.5-50.1); Hemoglobin 9.3 g/dL (12.9-16.9); Immature Granulocytes % 0.3 % (0-4); Lymphocytes # 2.4 K/mcL (0.6-4.6); Lymphocytes % 24.7 %; Mean Corpuscular HGB Conc 30.9 g/dL (31.6-35.5); Mean Corpuscular Hemoglobin 25.7 pg (28.0-33.3); Mean Corpuscular Volume 83.1 fL (83.0-100.0); Mean Platelet Volume 8.7 fL (9.4-12.4); Monocytes # 0.7 K/mcL (0.0-1.3); Monocytes % 7.1 %; Neutrophils # 6.3 K/mcL (1.6-8.9); Platelet Count 456 K/mcL (140-400); Red Blood Count 3.62 M/mcL (4.19-5.50); Red Cell Distribution Width 14.9 % (11.5-14.5); Segmented Neutrophils % 63.4 %
[2018-02-20 01:31] LABS: BUN/Creatinine Ratio 21 (6-26); Blood Urea Nitrogen 8 mg/dL (6-20); Calcium 7.9 mg/dL (8.6-10.3); Carbon Dioxide 25 mEq/L (23-29); Chloride 109 mEq/L (98-107); Glucose 108 mg/dL (70-105); Osmolality,Calculated 287 (280-300); Potassium 3.8 mEq/L (3.5-5.1); Sodium 139 mEq/L (136-145); eGFR For African Americans > 60 (> 60); eGFR For Non-African Americans > 60 (> 60)
[2018-02-20] MEDS: Baclofen 10 MG TABLET PO SCH ×4 (09:06→21:45)
[2018-02-20] MEDS: diazePAM 2 MG TABLET PO SCH ×3 (09:07→21:45)
[2018-02-20] MEDS: Gabapentin 400 MG CAPSULE PO SCH ×4 (09:07→21:44)
[2018-02-20] MEDS: *HR* OxyCODONE ER (12 HR) 20 MG TABLET PO SCH ×4 (09:07→21:45)
[2018-02-20] MEDS: 0.9 % Sodium Chloride 1,000 ML IVC SCH ×2 (09:20→22:54)
--- NOTE | 2018-02-20 09:25 | Electrocardiograph Report ---
[address] [place], [place] [address] Test Date: 2018-02-17 Pat Name: Arnulfo Bhardwaj Department: 103 Room: [facility] Gender: M [employer]: : 1965 Requested By: Tammy Hardin Order Number: [id number] Reading MD: Alirio Luz Measurements Intervals [place] Rate: 92 P: 92 [place]: 164 QRS: 114 QRSD: 118 T: -70 QT: 363 QTc: 412 Interpretive Statements SINUS RHYTHM WITH FREQUENT VENTRICULAR PREMATURE COMPLEXES INCOMPLETE RIGHT BUNDLE BRANCH BLOCK POSSIBLE INFERIOR MYOCARDIAL INFARCTION, OF INDETERMINATE AGE INFERIOR ST CHANGES, CONSIDER SUBENDOCARDIAL INJURY Electronically Signed On 02-20-2018 9:23:49 EDT by Alirio Luz
--- NOTE | 2018-02-20 10:19 | Internal Med Progress Note ---
Date of Encounter: 02/20/18 Time of Encounter: 08:45 - Assessment and plan (1) Osteomyelitis Current Visit: Yes Status: Suspected Assessment and plan: Patient with history of paraplegia with multiple decubitus ulcers with stage IV ulcer in the sacral region concerning for osteomyelitis. Surgery following. Plan for bone biopsy later today. One set of blood culture positive for gram- positive cocci. Likely contaminant as serologies negative. Wound culture growing gram-negative kassie. Per discussion with infectious disease, we will hold antibiotics to bone biopsies completed. Once that is done patient will be started on antibiotics targeting MRSA and gram-negative rods. Patient has had no fevers overnight. WBC count is normal. Qualifiers: Osteomyelitis type: other Osteomyelitis location: multiple sites Qualified Code(s): M86.8X0 - Other osteomyelitis, multiple sites (2) Pressure sore of left ischium, stage 4 Current Visit: Yes Status: Chronic Assessment and plan: Continue local wound care. Decubitus ulcer prophylactic measures. Air mattress. (3) Malnutrition Current Visit: No Status: Chronic Assessment and plan: Nutrition following. Supplemental nutrition ordered. Patient is currently nothing by mouth for planned biopsy. Continue supplementing with ensure after procedure Qualifiers: Malnutrition type: protein-calorie malnutrition Protein-calorie malnutrition severity: severe Qualified Code(s): E43 - Unspecified severe protein-calorie malnutrition (4) Paraplegia Current Visit: Yes Status: Chronic Assessment and plan: Chronic. Supportive care. - Time Spent With Patient Total time spent is greater than 50% in coordination of care (as documented) at patient's floor/unit and/or counseling patient: - Subjective Interval history: Patient is lying in bed today. Awaiting bone biopsy is scheduled for later today. Denies any fever or chills overnight. No nausea or vomiting and feels very hungry. - Constitutional Vitals: Temp Pulse Resp BP Pulse Ox 97.6 F 80 17 93/55 100 02/20/18 06:56 02/20/18 06:56 02/20/18 06:56 02/20/18 06:56 02/20/18 09:00 General appearance: Present: A&O X 3, no acute distress, underweight - Respiratory Respiratory exam: Present: CTAB. Absent: accessory muscle use, rales, rhonchi, wheezes - Cardiovascular Cardiovascular exam: Present: RRR, +S1, +S2. Absent: diastolic murmur, gallop, rubs, systolic murmur - GI/Abdominal GI/Abdominal exam: Present: normal bowel sounds, soft, no peritoneal signs. Absent: distended, tenderness - Extremities Exam Extremities exam: Present: warm, radial pulses palpable and symmetrical. Absent : calf tenderness, cyanotic, pedal edema - Neurological Exam Neurological exam: Present: CN II-XII intact, oriented X3, no focal deficits. Absent: facial droop, speech deficit - Skin Skin exam: Present: dry, intact Additional comments: Multiple decubitus ulcers on both heels and sacral region Internal Medicine: Result - Labs CBC & Chem 7: 02/20/18 00:48 02/20/18 00:48 Labs: Short CBC 02/20/18 Range/Units 00:48 WBC 9.9 (4.3-11.1) K/mcL Hgb 9.3 L (12.9-16.9) g/dL Hct 30.1 L (37.5-50.1) % Plt Count 456 H (140-400) K/mcL Neutrophils # 6.3 (1.6-8.9) K/mcL BMP 02/20/18 00:48 Sodium 139 Potassium 3.8 Chloride 109 H Carbon Dioxide 25 BUN 8 Creatinine 0.39 L Glucose 108 H Calcium 7.9 L Consult Discharge Plan - Plan Referrals: NONE,PCP [Primary Care Provider] -
--- NOTE | 2018-02-20 11:00 | General Surgery Progress Note ---
Date of Encounter: 02/20/18 Time of Encounter: 09:15 Subjective Patient reports: no new complaints, afebrile Narrative: Pt states he is comfortable and pain is controlled. Denies fevers, chills, N/V, or abdominal pain. Objective Vital Signs - Last 8 Hours Temp Pulse Resp BP Pulse Ox 02/20/18 09:00 100/66 100 02/20/18 06:56 97.6 F 80 17 93/55 100 02/20/18 05:12 97.9 F 82 16 100/64 98 Intake and Output 02/19/18 02/20/18 02/20/18 23:59 07:59 15:59 Intake Total 1000 / 1000 Output Total 600 / 600 1800 / 1800 650 / 650 Balance -600 / -600 -1800 / -1800 350 / 350 Intake: IV Fluids 1000 / 1000 0.9 % Sodium Chloride 1,000 ML 1000 / 1000 @ 75 mls/hr IVC .[id number] [facility] Rx #:[id number] Oral 0 / 0 Output: Catheter 600 / 600 1800 / 1800 650 / 650 Other: Meal Dinner Percent of Meal Consumed 20% - General physical appearance no distress - Eyes normal ocular movement - Respiratory normal expansion, normal respiratory effort, clear to auscultation - Cardiovascular Cardiovascular exam: Present: RRR - Abdomen Abdomen: Present: bowel sounds present, soft, non tender - Labs 02/20/18 00:48 02/20/18 00:48 Diabetes panel 02/20/18 Range/Units 00:48 Sodium 139 (136-145) mEq/L Potassium 3.8 (3.5-5.1) mEq/L Chloride 109 H (98-107) mEq/L Carbon Dioxide 25 (23-29) mEq/L BUN 8 (6-20) mg/dL Creatinine 0.39 L (0.70-1.30) mg/dL Glucose 108 H (70-105) mg/dL Calcium 7.9 L (8.6-10.3) mg/dL Calcium panel 02/20/18 Range/Units 00:48 Calcium 7.9 L (8.6-10.3) mg/dL Pituitary panel 02/20/18 Range/Units 00:48 Sodium 139 (136-145) mEq/L Potassium 3.8 (3.5-5.1) mEq/L Chloride 109 H (98-107) mEq/L Carbon Dioxide 25 (23-29) mEq/L BUN 8 (6-20) mg/dL Creatinine 0.39 L (0.70-1.30) mg/dL Glucose 108 H (70-105) mg/dL Calcium 7.9 L (8.6-10.3) mg/dL Adrenal panel 02/20/18 Range/Units 00:48 Sodium 139 (136-145) mEq/L Potassium 3.8 (3.5-5.1) mEq/L Chloride 109 H (98-107) mEq/L Carbon Dioxide 25 (23-29) mEq/L BUN 8 (6-20) mg/dL Creatinine 0.39 L (0.70-1.30) mg/dL Glucose 108 H (70-105) mg/dL Calcium 7.9 L (8.6-10.3) mg/dL Consult Discharge Plan - Plan Referrals: NONE,PCP [Primary Care Provider] -
[2018-02-20 13:17] LABS: INR 1.1; Prothrombin Time 11.5 Seconds (9.4-12.1)
--- NOTE | 2018-02-20 13:51 | Event Note ---
<Yared Augustin R - Last Filed: 02/20/18 13:51> Date of Encounter: 02/20/18 Time of Encounter: 13:[address] Yusuf. She is very familiar with the patient as she sees him in the wound clinic. Antibiotics per ID recommendations. Continue daily wound care. There are currently no surgical needs at this time. Surgery will sign-off at this time. Reconsult as needed. <Kamala Yusuf - Last Filed: 02/21/18 10:15> Date of Encounter: 02/21/18 we will follow from a distance continue daily dressing changes IR is going to perform bone biopsy is my understanding, ID is managing antibiotics no current surgical intervention needed
--- NOTE | 2018-02-20 18:00 | Infectious Disease Consult ---
Date of Encounter: 02/20/18 Time of Encounter: 17:59 Assessment and Plan (1) Neurogenic bladder Status: Acute Assessment and plan: Uses [place] catheter No urinary symptoms P cystitis with provendecia in the past (2) Tobacco abuse Status: Acute Assessment and plan: Smokes in the room Explained to the patient that smoking is going to impede his healing if he continues to smoke Offered him a nicotine patch (3) Pressure ulcer of ischial area, stage 4 Status: Acute Assessment and plan: Has been following wound care doctor Joel Patient has seen orthopedics at [facility] of June 2017 We will get records from there Qualifiers: Laterality: unspecified laterality Qualified Code(s): L89.304 - Pressure ulcer of unspecified buttock, stage 4 (4) Paraplegia Status: Chronic (5) Osteomyelitis Status: Suspected Assessment and plan: Bone is visible and by definition he has osteomyelitis. Patient is going tomorrow morning for biopsy and cultures. Previous cultures in the past include MSSA, Proteus, Escherichia coli and group G Streptococcus the Escherichia coli and Proteus were both pansensitive. Patient also had an antiviral. I asked him to health antibiotics until cultures are obtained. We will start on empiric Zosyn tomorrow after cultures are obtained. Also check inflammatory markers. Blood cultures finalize we will tailor antibiotics accordingly. Prognosis overall guarded. We will discuss with his surgery team to see if he needs plastics. Monitor labs and for drug toxicity. Aggressive wound care Qualifiers: Osteomyelitis type: other Osteomyelitis location: multiple sites Qualified Code(s): M86.8X0 - Other osteomyelitis, multiple sites (6) Malnutrition Status: Chronic Qualifiers: Malnutrition type: protein-calorie malnutrition Protein-calorie malnutrition severity: severe Qualified Code(s): E43 - Unspecified severe protein-calorie malnutrition Infectious Disease HPI - Data of Consult Patient: known to practice within the last 3 years Consult date: 02/20/18 Requesting Physician: Tammy Hardin MD Primary Care Provider: PCP NONE - Consult Narrative Reason for consult: osteomyrlitis History of present illness: Mr. Bhardwaj is a 52 year old male Patient is a 52-year-old gentleman well-known to my service who has an extensive past medical history mentioned below was sent to [facility] by his wound care surgeon for decubitus ulcer stage IV and exposed bone Patient is a 52-year-old gentleman that is well-known to my service that was seen by me exactly year ago in February 2017 as outpatient for chronic multifocal osteomyelitis of multiple sites. At that time patient had an MRI done on 2016 which noted osteomyelitis. Patient underwent a biopsy on February 25 which confirms osteomyelitis but cultures were negative for AFB and fungal. Previous cultures in 2016 were positive for Proteus, MSSA, Escherichia coli and group G Streptococcus.The previous culture results I decided to treat him with Rocephin. Plan was to treat for 6-8 weeks and transfer for plastic surgery evaluation at [facility]. Patient was scheduled to see Dr. Di Maldonado on May 25 of last year. Patient also was seen by my nurse practitioner and Rocephin was stopped and patient was started on vancomycin after 8 weeks of IV Rocephin since the patient was not doing better clinically and inflammatory markers were continued to be elevated. Patient apparently was evaluated at [facility] on June 09 and since then we have now followed up with him. I will try to get records from [facility]. Since admission patient has been afebrile. Patient has had no persistent leukocytosis. Presenting WBC of 14.9 with 77.6% neutrophils. ESR was measured at over 130. Kidney function was fine. CRP was 195. A urinalysis suggest possible infection. Blood cultures were obtained and one set grew gram- positive cocci but does not appear to be enterococcus, Streptococcus or Staphylococcus aureus. Most likely contaminant but we will see. Cultures from the wound on February 17 also are growing gram-negative rods with final ID pending. I walked into the patients room and it was smelling of smoke a few is just smoking. Patient hit his face and asked me to give him a minute. I came back and patient was still smoking. I the asked the patient all the questions viral thing he was the best historian. Patient is not really familiar with what happened, [facility]. The rest of the review of systems unremarkable. He tells me that his procedure was canceled for today. I did speak with the nurse who is also at bedside and she confirmed that the patient s procedure is move total tomorrow. Patient will be fed and become nothing by mouth after midnight. CC: Tammy Hardin MD Past Med Surg Social Fam HX - Past Medical History Medical history: other Additional medical history: paraplegia, osteomylitis Psychiatric history: anxiety, depression - Past Surgical History Surgical History: colostomy, vasectomy, other Additional surgical history: myocutaneous flap right ishium - Social History Smoking Status: Current every day smoker Packs per day: 1 Smokeless Tobacco Status: No Alcohol use: none Drug use: none - Family History Mother Adopted: No Family Member Ethnicity: Non- Living Status: Still Living Hx Family Cardiac Disorders: No Hx Family Respiratory Disorders: No Hx Family Cancer: No Hx Family GI Disorders: No Hx Family Endocrine Disorder: Yes Hx Family Neuromuscular Disorders: No Hx Family Neurologic Disorders: No Hx Family HEENT Disorders: No Hx Family Autoimmune Disorders: No Brother Adopted: No Living Status: Still Living Hx Family Cardiac Disorders: No Hx Family Respiratory Disorders: No Hx Family Cancer: No Hx Family GI Disorders: No Hx Family Endocrine Disorder: No Hx Family Neuromuscular Disorders: No Hx Family Neurologic Disorders: No Hx Family HEENT Disorders: No Hx Family Autoimmune Disorders: No Infectious Disease-CN:Meds Baclofen 20 mg PO QID 09/19/15 [History] Gabapentin [Neurontin] 800 mg PO QID 09/19/15 [History] diazePAM [Valium] 1 mg PO TID 09/19/15 [History] Morphine Sulfate/Naltrexone [Embeda ER 100-4 mg Capsule] 2 tab PO BID 08/26/17 [ History] Oxycodone HCl [Oxycontin] 20 mg PO QID 08/26/17 [History] 3 Allergy/AdvReac Type Severity Reaction Status Date / Time No Known Allergies Allergy Verified 02/17/18 17:16 Review of systems: 10 point review of systems done, negative other for what mentioned in history of present illness Exam - Constitutional Vitals: Temp Pulse Resp BP Pulse Ox 97.6 F 87 18 112/67 98 02/20/18 15:27 02/20/18 15:27 02/20/18 15:27 02/20/18 15:27 02/20/18 15:27 General appearance: cooperative, no acute distress, no febrile - Head Head exam: Present: atraumatic, normocephalic - Eye Eye exam: Present: EOMI, PERRL, sclera anicteric - ENT ENT exam: Present: mucous membranes moist Additional comments: No oral lesions - Neck Neck exam: Present: full ROM. Absent: meningismus - Respiratory Respiratory exam: Present: CTAB, wheezes. Absent: rhonchi - Cardiovascular Cardiovascular exam: Present: RRR, +S1, +S2 - GI/Abdominal GI/Abdominal exam: Present: normal bowel sounds, soft. Absent: tenderness - Extremities Exam Additional comments: Cachectic with muscle wasting and some contractures - Expanded Back Exam 1 - Stage IV decubitus ulcer with bone visible - Neurological Exam Neurological exam: Present: alert, oriented X3 Additional comments: Paraplegic - Psychiatric Psychiatric exam: Present: normal affect, normal mood - Skin Skin exam: Present: normal color. Absent: rash Infectious Disease CN: Results - Labs CBC & Chem 7: 02/20/18 00:48 02/20/18 00:48 Consult Discharge Plan - Plan Referrals: NONE,PCP [Primary Care Provider] -
[2018-02-21] MEDS: Baclofen 10 MG TABLET PO SCH (09:27)
[2018-02-21] MEDS: *HR* OxyCODONE ER (12 HR) 20 MG TABLET PO SCH (09:27)
[2018-02-21] MEDS: Gabapentin 400 MG CAPSULE PO SCH (09:27)
[2018-02-21] MEDS: diazePAM 2 MG TABLET PO SCH (09:27)
--- NOTE | 2018-02-21 10:48 | Discharge Summary ---
<Cameron Alegre - Last Filed: 02/21/18 13:47> Orders not resulted at time of discharge: Pending orders 02/18/18 23:59 Type and Screen [BBK] Stat 02/19/18 01:19 Red Blood Cells [BBK] Stat 02/21/18 10:28 Culture,Blood [BC] Stat Date of Encounter: 02/21/18 Time of Encounter: 09:25 - Discharge Diagnosis (1) Osteomyelitis Priority: Primary Status: Suspected Qualifiers: Osteomyelitis type: other Osteomyelitis location: multiple sites Qualified Code(s): M86.8X0 - Other osteomyelitis, multiple sites (2) Pressure sore of left ischium, stage 4 Priority: Secondary Status: Chronic (3) Malnutrition Priority: Secondary Status: Chronic Qualifiers: Malnutrition type: protein-calorie malnutrition Protein-calorie malnutrition severity: severe Qualified Code(s): E43 - Unspecified severe protein-calorie malnutrition (4) Paraplegia Priority: Secondary Status: Chronic Hospital course: Patient is a 52-year-old gentleman with extensive past medical history of osteomyelitis and paraplegia (s/p fall and back injury in 1993). He was sent to [place] ED by his wound care surgeon for decubitus ulcer stage IV and exposed bone. History of chronic multifocal osteomyelitis of multiple sites. MRI done on 02/08/2017 which noted osteomyelitis. Patient underwent a biopsy on 2016 which confirmed osteomyelitis but cultures were negative for AFB and fungal. Previous cultures in 2016 were positive for Proteus, MSSA, Escherichia coli and group G Streptococcus. Previously he has been treated with Rocephin in the past. Plan was to treat for 6-8 weeks and transfer for plastic surgery evaluation at [facility]. Patient was scheduled to see Dr. Di Maldonado on 05/25/2017. Patient was switched to vancomycin after 8 weeks of IV Rocephin as he was not doing better clinically and inflammatory markers continued to be elevated. Since this admission patient has been afebrile, though he front fevers prior to admission. Patient has had no persistent leukocytosis. Presenting WBC of 14.9 with 77.6% neutrophils. ESR was measured at over 130. Kidney function okay. CRP was 195. A urinalysis suggest possible infection. Blood cultures were obtained and one set grew gram-positive cocci but does not appear to be enterococcus, Streptococcus or Staphylococcus aureus; possible contaminant, repeat blood culture ordered. Cultures from the wound on grew Proteus mirabilis , patient has been started on Zosyn. Both Infectious Disease service and Surgery have been involved in patient's care. ID recommending bone biopsy, however discussion from surgery and ID suggest that patient will require plastics to be involved. Called [facility] for transfer, patient accepted by Dr. Ordonez at [facility] at 11:25; awaiting bed placement. Discharge discussed with: patient Time spent discussing smoking cessation with patient: 3 to 10 minutes - Time Spent with Patient Total time spent providing and/or coordinating discharge services: Greater than 30 minutes (45mins) - Discharge Medications Home Medications: Baclofen 20 mg PO QID 09/19/15 [History] Gabapentin [Neurontin] 800 mg PO QID 09/19/15 [History] diazePAM [Valium] 1 mg PO TID 09/19/15 [History] Morphine Sulfate/Naltrexone [Embeda ER 100-4 mg Capsule] 2 tab PO BID 08/26/17 [ History] Oxycodone HCl [Oxycontin] 20 mg PO QID 08/26/17 [History] Acetaminophen [Tylenol] 650 mg PO Q6HR PRN tablet 02/21/18 [Rx] Naloxone [Narcan] 0.4 mg IVP Q2MIN PRN inj 02/21/18 [Rx] Allergies/Adverse Reactions: 3 Allergy/AdvReac Type Severity Reaction Status Date / Time No Known Allergies Allergy Verified 02/17/18 17:16 Date of admission: 02/18/18 00:19 Primary care physician: PCP NONE Consults: 02/18/18 11:22 Consult to Infectious Diseases [CONS] Routine Consulting Provider: Infectious Disease [place] Reason for Consult: abx regimen osteomeylitis Call Completed: Yes 02/20/18 11:39 Consult to Interventional Radiology [CONS] Routine Consulting Provider: Radiology Interventional [place] Reason for Consult: Bone Biopsy - sacral ulcers Time Notified: 11:39 Call Completed: Yes Discharging clinician: Madeleine Gilman Anticipated date of discharge: 02/21/18 - Constitutional Vitals: Temp Pulse Resp BP Pulse Ox 97.6 F 84 18 95/58 97 02/21/18 08:21 02/21/18 08:21 02/21/18 08:21 02/21/18 08:21 02/21/18 08:21 General appearance: Present: A&O X 3, no acute distress, underweight, answers questions appropriately - Head Head exam: Present: atraumatic, normal inspection, normocephalic - Eye Eye exam: Present: EOMI, normal appearance - ENT ENT exam: Present: mucous membranes dry - Neck Neck exam general surgery: Present: full ROM, normal inspection - Respiratory Respiratory exam: Present: CTAB. Absent: respiratory distress, rhonchi, wheezes - Cardiovascular Cardiovascular exam: Present: RRR, +S1, +S2. Absent: gallop, rubs - GI/Abdominal GI/Abdominal exam: Present: normal bowel sounds, soft. Absent: distended, firm , guarding, tenderness - Extremities Exam Extremities exam: Present: warm. Absent: cyanotic, full ROM, pedal edema, tenderness - Neurological Exam Neurological exam: Present: alert, oriented X3, no focal deficits. Absent: speech deficit - Psychiatric Psychiatric exam: Present: flat affect - Skin Additional comments: (reported as stage IV with bone exposure) large sacral decub ulcer that is currently covered by a clean/dry/intact dressing; plan to further exam with dressing changes. - Patient Status Disposition: Transfer Short-Term Hosp Condition: Fair Functional capacity at discharge: wheelchair bound Overall status at discharge: patient is not back to baseline - Discharge Instructions Additional Instructions: Transferring to [facility], accepted by Dr. Holt. Patient will likely need continued antibiotics, recently on Zosyn. Will need bone biopsy and likely need plastic surgery consult. <Madeleine Gilman - Last Filed: 02/21/18 14:28> Orders not resulted at time of discharge: Pending orders 02/18/18 23:59 Type and Screen [BBK] Stat 02/19/18 01:19 Red Blood Cells [BBK] Stat 02/21/18 10:38 Culture,Blood [BC] Stat Date of Encounter: 02/21/18 - Discharge Diagnosis (1) Pressure sore of left ischium, stage 4 Status: Chronic (2) Malnutrition Status: Chronic Qualifiers: Malnutrition type: protein-calorie malnutrition Protein-calorie malnutrition severity: severe Qualified Code(s): E43 - Unspecified severe protein-calorie malnutrition (3) Osteomyelitis Status: Suspected Qualifiers: Osteomyelitis type: other Osteomyelitis location: multiple sites Qualified Code(s): M86.8X0 - Other osteomyelitis, multiple sites (4) Paraplegia Status: Chronic Hospital course: Mr. Bhardwaj is a 52 year old male - Time Spent with Patient Total time spent providing and/or coordinating discharge services: Date of admission: 02/18/18 00:19 Primary care physician: PCP NONE Consults: 02/18/18 11:22 Consult to Infectious Diseases [CONS] Routine Consulting Provider: Infectious Disease [place] Reason for Consult: abx regimen osteomeylitis Call Completed: Yes 02/20/18 11:39 Consult to Interventional Radiology [CONS] Routine Consulting Provider: Radiology Inter[facility] Reason for Consult: Bone Biopsy - sacral ulcers Time Notified: 11:39 Call Completed: Yes - Constitutional Vitals: Temp Pulse Resp BP Pulse Ox 97.6 F 86 18 94/59 97 02/21/18 08:21 02/21/18 11:21 02/21/18 11:21 02/21/18 11:21 02/21/18 11:21 - Attending Attestation I examined this patient and my medical decision-making was reviewed with the Resident Physician Dr. Alegre. I agree with the documented findings, disposition and treatment plan as described except to the extent set forth below. Mr. Bhardwaj is a 52 year old male malnutrition, traumatic injury (pt fell 3 stories from a roof at his job in 1993), quadraplegia secondary to injury, stage IV decubitus ulcer and chronic osteomyelitis pt admitted here for worsening sacral ulcer infection. Pt was seen by ID, wound cx growing Proteus. At this point he was started on Zosyn, ID recommend to transfer the pt to [facility] for further higher level of care and he does follows with surgeon at [facility]. So will d/c him to [facility] today for further higher level of care.
[2018-02-21] MEDS: NALTREXONE PO SCH (11:13)
[2018-02-21] MEDS: MORPHINE SULFATE PO SCH (11:13)
[2018-02-21 11:22] VITALS: BP 94/59
[2018-02-21] MEDS ORDERED: Piperacillin/Tazobactam 3.375 GM in 0.9 % Sodium Chloride Mini Bag 100 ML IVPB SCH (16:00)
--- NOTE | 2018-02-21 17:50 | Infectious Disease Progress No ---
Date of Encounter: 02/21/18 Time of Encounter: 11:47 - Assessment and Plan (1) Neurogenic bladder Status: Acute Uses [place] catheter No urinary symptoms Previous cystitis with provendecia in the past (2) Tobacco abuse Status: Acute Smokes in the room Explained to the patient that smoking is going to impede his healing if he continues to smoke Offered him a nicotine patch (3) Pressure ulcer of ischial area, stage 4 Status: Acute Has been following wound care doctor Joel Patient has seen orthopedics at [facility] of June 2017 We will get records from there Qualifiers: Laterality: unspecified laterality Qualified Code(s): L89.304 - Pressure ulcer of unspecified buttock, stage 4 (4) Paraplegia Status: Chronic (5) Osteomyelitis Status: Suspected Bone is visible and by definition he has osteomyelitis. P Previous cultures in the past include MSSA, Proteus, Escherichia coli and group G Streptococcus the Escherichia coli and Proteus were both pansensitive. I asked him to hold antibiotics until cultures are obtained. wound cultures grew proteus wheeler sensitive; surgery signed off and IR didnt do the procedure; Will start on empiric Zosyn tomorrow after cultures are obtained. Also check inflammatory markers. Blood cultures finalize we will tailor antibiotics accordingly. Prognosis overall guarded. d/w hospitalist team will transfer to [facility] for plastic surgery eval Qualifiers: Osteomyelitis type: other Osteomyelitis location: multiple sites Qualified Code(s): M86.8X0 - Other osteomyelitis, multiple sites (6) Malnutrition Status: Chronic Qualifiers: Malnutrition type: protein-calorie malnutrition Protein-calorie malnutrition severity: severe Qualified Code(s): E43 - Unspecified severe protein-calorie malnutrition - Subjective Interval history: patient is seen and examined. no change clinically. no chest pain. no shortness of breath Infect Dis PN-Objective Data - Labs CBC & Chem 7: 02/20/18 00:48 02/20/18 00:48 Cultures: Cultures 02/21/18 10:38 Blood Culture - Preliminary Peripheral Venipuncture Culture is incubating and being continuously monitored for growth. Final report to follow. Exam - Constitutional Vitals: Temp Pulse Resp BP Pulse Ox 97.6 F 86 18 94/59 97 02/21/18 08:21 02/21/18 11:21 02/21/18 11:21 02/21/18 11:21 02/21/18 11:21 General appearance: no acute distress, no febrile - Respiratory Respiratory exam: Present: CTAB. Absent: wheezes - Cardiovascular Cardiovascular exam: Present: RRR, +S1, +S2 Consult Discharge Plan - Plan Additional Instructions: Transferring to [facility], accepted by Dr. Holt. Patient will likely need continued antibiotics, recently on Zosyn. Will need bone biopsy and likely need plastic surgery consult. Referrals: NONE,PCP [Primary Care Provider] -
== END 2018-02-21 15:28 | disposition short-term general hospital (02) | DRG 539 ==
LOC: EMEROO 17:08 → 3NENU 17:08 → SUATTDRO 02-18 00:19
PROVIDERS: ADMIT Pediatrics; ATTEND Internal Medicine

== ENCOUNTER 2019-05-25 14:06 | Inpatient (IN) ==
[2019-05-25 14:46] LABS: Bilirubin,Urine Negative (Negative); Blood,Urine Moderate (Negative); Clarity,Urine Turbid (Clear); Color,Urine Yellow (Yellow); Glucose,Urine (UA) Normal (Normal); Ketones,Urine Negative (Negative); Leukocyte Esterase,Urine Large (Negative); Nitrite,Urine Negative (Negative); PH,Urine 6.5 pH Units (5.0-8.0); Protein,Urine 100 mg/dL (Neg-Trace); Specific Gravity,Urine 1.015 (1.010-1.025); Urobilinogen,Urine Normal (Normal)
--- NOTE | 2019-05-25 14:47 | Emergency Department Note ---
Disposition Clinical Impression: Hyponatremia Urinary tract infection Qualifiers: Urinary tract infection type: site unspecified Hematuria presence: with hematuria Qualified Code(s): N39.0 - Urinary tract infection, site not specified Decubitus ulcer of left ischium Qualifiers: Pressure injury stage: unspecified pressure injury stage Qualified Code(s): L89.329 - Pressure ulcer of left buttock, unspecified stage Decubitus ulcer of right ischium Qualifiers: Pressure injury stage: unspecified pressure injury stage Qualified Code(s): L89.319 - Pressure ulcer of right buttock, unspecified stage Disposition: Admitted As Inpatient Condition: Fair Time of Disposition: 06:05 Male Urogenital HPI - General Chief complaint: ED Urogenital-Male Stated complaint: bladder infection Time Seen by Provider: 05/25/19 14:44 Source: patient Limitations: no limitations Nursing Notes Reviewed: Yes Vital Signs Reviewed: Yes - History of Present Illness HPI Narrative: Alert and oriented nontoxic appearing 53-year-old male presents with complaint of "I think I have a UTI". Patient reports that he has noticed sediment in his urinary catheter back that started approximately 2 days ago and has become more persistent. Patient also states that he has been intermittently confused since yesterday and feels slightly weak. He states that these symptoms are consistent with previous urinary tract infections that he has had. Patient denies fevers, abdominal pain, shortness of breath, chest pain. Onset (ago): day(s) Reports: denies other symptoms. Denies: discharge, swelling, mass, rash, urinary retention, hematuria, dysuria, fever, nausea/vomiting, incontinence, other - Related Data Home Medications Medication Instructions Recorded Confirmed Baclofen 20 mg PO BID 09/19/15 05/25/19 Gabapentin [Neurontin] 800 mg PO QID 09/19/15 05/25/19 Morphine Sulfate/Naltrexone 1 tab PO BID 08/26/17 05/25/19 [Embeda ER 100-4 mg Capsule] Oxycodone HCl 20 mg PO QID PRN 05/25/19 05/25/19 diazePAM [Valium] 5 mg PO BID PRN 05/25/19 05/25/19 Allergies Allergy/AdvReac Type Severity Reaction Status Date / Time No Known Allergies Allergy Verified 02/17/18 17:16 Review of Systems: As Per HPI Constitutional: Reports: as per HPI. Denies: fever, chills, weakness Cardiovascular: Denies: chest pain, palpitations Respiratory: Denies: cough, dyspnea, wheezes Gastrointestinal: Denies: abdominal pain, nausea, vomiting, diarrhea Genitourinary: Reports: as per HPI, other (Sediment noted in the urinary catheter bag). Denies: urgency, dysuria, frequency Musculoskeletal: Denies: back pain, neck pain, joint swelling Neurological: Denies: headache, weakness, numbness, paresthesias Past Medical History - Past Medical History Attestation: Yes The following information was validated with the patient. Source: patient, nursing notes reviewed Medical history: Reports: non-contributory, other Surgical history: Reports: colostomy, vasectomy, other Psychiatric history: Reports: anxiety, depression - Social History Smoking Status: Former smoker Smokeless Tobacco Status: No Alcohol use: Reports: none Drug use: Reports: none Physical Exam - General Limitations: no limitations General appearance: alert, in no apparent distress - Head Head exam: atraumatic, normocephalic - Eye Eye exam: Present: normal appearance, EOMI. Absent: scleral icterus, conjunctival injection, periorbital swelling - ENT ENT exam: normal exam, mucous membranes moist - Neck Neck exam: Present: normal inspection, trachea midline. Absent: meningismus - Chest Chest inspection: Present: normal inspection, symmetric chest wall rise - Respiratory Respiratory exam: Absent: respiratory distress - Cardiovascular Cardiovascular exam: Present: regular rate - Abdominal Exam Abdominal Exam: Present: Non-Tender - Neurological Exam Neurological exam: Present: alert, oriented X3 - Psychiatric Psychiatric exam: Present: normal affect, normal mood - Skin Skin exam: Present: warm, dry, intact, normal color Course Vital Signs Temperature 97.8 F 05/25/19 14:07 Pulse Rate 93 05/25/19 14:07 Respiratory Rate 18 05/25/19 14:07 Blood Pressure 116/70 05/25/19 14:07 O2 Sat by Pulse Oximetry 98 05/25/19 14:07 Temperature 98.5 F 05/26/19 04:20 Pulse Rate 86 05/26/19 04:20 Respiratory Rate 18 05/26/19 04:20 Blood Pressure 100/44 05/26/19 04:20 O2 Sat by Pulse Oximetry 96 05/26/19 04:20 Oxygen Delivery Oxygen Delivery Room Air Urogenital-Male - Lab Data Lab results reviewed: Yes I reviewed the patient's lab results. Result diagrams: 05/26/19 02:42 05/26/19 02:42 Lab Results 05/25/19 05/25/19 05/25/19 Range/Units 14:34 16:00 16:00 WBC 14.9 H (4.3-11.1) K/mcL RBC 4.58 (4.19-5.50) M/mcL Hgb 11.6 L (12.9-16.9) g/dL Hct 37.3 L (37.5-50.1) % MCV 81.4 L (83.0-100.0) fL MCH 25.3 L (28.0-33.3) pg MCHC 31.1 L (31.6-35.5) g/dL RDW 15.9 H (11.5-14.5) % Plt Count 268 (140-400) K/mcL MPV 9.2 L (9.4-12.4) fL Immature Gran % 0.5 (0-4) % Seg Neutrophils % 81.5 % Lymphocytes % 8.3 % Monocytes % 9.4 % Eosinophils % 0.1 % Basophils % 0.2 % Neutrophils # 12.1 H (1.6-8.9) K/mcL Lymphocytes # 1.2 (0.6-4.6) K/mcL Monocytes # 1.4 H (0.0-1.3) K/mcL Eosinophils # 0.0 (0.0-0.6) K/mcL Basophils # 0.0 (0.0-0.2) K/mcL Sodium 125 L (136-145) mEq/L Potassium 3.4 L (3.5-5.1) mEq/L Chloride 91 L (98-107) mEq/L Carbon Dioxide 28 (23-29) mEq/L BUN 36 H (6-20) mg/dL Creatinine 1.07 (0.70-1.30) mg/dL Est GFR ( Amer) > 60 (> 60) Est GFR (Non-Af Amer) > 60 (> 60) BUN/Creatinine Ratio 34 H (6-26) Glucose 115 H (70-105) mg/dL Calculated Osmolality 269 L (280-300) Lactic Acid (0.5-2.2) mmol/L Calcium 8.6 (8.6-10.3) mg/dL Total Bilirubin 0.5 (0.3-1.0) mg/dL Direct Bilirubin 0.2 (0.0-0.2) mg/dL Indirect Bilirubin 0.3 (0.0-1.2) mg/dL AST 19 (13-39) Units/L ALT 15 (7-52) Units/L Alkaline Phosphatase 114 H (34-104) Units/L Serum Total Protein 7.1 (6.4-8.9) g/dL Albumin 2.9 L (3.5-5.7) g/dL Globulin 4.2 H (2.4-3.5) g/dL Albumin/Globulin Ratio 0.7 L (1.1-2.2) Amylase 10 L (29-103) Units/L Lipase 4 L (11-82) Units/L Urine Color Yellow (Yellow) Urine Clarity Turbid A (Clear) Urine pH 6.5 (5.0-8.0) pH Units Ur Specific [place] 1.015 (1.010-1.025) Urine Protein 100 H (Neg-Trace) mg/dL Urine Glucose (UA) Normal (Normal) mg/dL Urine Ketones Negative (Negative) mg/dL Urine Blood Moderate H (Negative) Urine Nitrite Negative (Negative) Urine Bilirubin Negative (Negative) Urine Urobilinogen Normal (Normal) mg/dL Ur Leukocyte Esterase Large H (Negative) Urine Microscopic RBC 5-15 H (0-3) per hpf Urine Microscopic WBC TNTC H (0-3) per hpf Ur Squamous Epith Cells Many H (None-Few) per lpf Urine Bacteria Moderate H (None-Few) per hpf Urine Mucus Few (Few) Ur Culture Indicated? YES A (NO) 05/25/19 Range/Units 16:10 WBC (4.3-11.1) K/mcL RBC (4.19-5.50) M/mcL Hgb (12.9-16.9) g/dL Hct (37.5-50.1) % MCV (83.0-100.0) fL MCH (28.0-33.3) pg MCHC (31.6-35.5) g/dL RDW (11.5-14.5) % Plt Count (140-400) K/mcL MPV (9.4-12.4) fL Immature Gran % (0-4) % Seg Neutrophils % % Lymphocytes % % Monocytes % % Eosinophils % % Basophils % % Neutrophils # (1.6-8.9) K/mcL Lymphocytes # (0.6-4.6) K/mcL Monocytes # (0.0-1.3) K/mcL Eosinophils # (0.0-0.6) K/mcL Basophils # (0.0-0.2) K/mcL Sodium (136-145) mEq/L Potassium (3.5-5.1) mEq/L Chloride (98-107) mEq/L Carbon Dioxide (23-29) mEq/L BUN (6-20) mg/dL Creatinine (0.70-1.30) mg/dL Est GFR ( Amer) (> 60) Est GFR (Non-Af Amer) (> 60) BUN/Creatinine Ratio (6-26) Glucose (70-105) mg/dL Calculated Osmolality (280-300) Lactic Acid 1.7 (0.5-2.2) mmol/L Calcium (8.6-10.3) mg/dL Total Bilirubin (0.3-1.0) mg/dL Direct Bilirubin (0.0-0.2) mg/dL Indirect Bilirubin (0.0-1.2) mg/dL AST (13-39) Units/L ALT (7-52) Units/L Alkaline Phosphatase (34-104) Units/L Serum Total Protein (6.4-8.9) g/dL Albumin (3.5-5.7) g/dL Globulin (2.4-3.5) g/dL Albumin/Globulin Ratio (1.1-2.2) Amylase (29-103) Units/L Lipase (11-82) Units/L Urine Color (Yellow) Urine Clarity (Clear) Urine pH (5.0-8.0) pH Units Ur Specific [place] (1.010-1.025) Urine Protein (Neg-Trace) mg/dL Urine Glucose (UA) (Normal) mg/dL Urine Ketones (Negative) mg/dL Urine Blood (Negative) Urine Nitrite (Negative) Urine Bilirubin (Negative) Urine Urobilinogen (Normal) mg/dL Ur Leukocyte Esterase (Negative) Urine Microscopic RBC (0-3) per hpf Urine Microscopic WBC (0-3) per hpf Ur Squamous Epith Cells (None-Few) per lpf Urine Bacteria (None-Few) per hpf Urine Mucus (Few) Ur Culture Indicated? (NO)
[2019-05-25 14:48] LABS: Bacteria,Urine Moderate per hpf (None-Few); Squamous Epithelial Cell,Urine Many per lpf (None-Few); WBC,Urine TNTC per hpf (0-3)
[2019-05-25 15:19] LABS: Mucus,Urine Few (Few)
[2019-05-25 16:28] LABS: Basophils % 0.2 %; Eosinophils % 0.1 %; Hematocrit 37.3 % (37.5-50.1); Hemoglobin 11.6 g/dL (12.9-16.9); Immature Granulocytes % 0.5 % (0-4); Lymphocytes # 1.2 K/mcL (0.6-4.6); Lymphocytes % 8.3 %; Mean Corpuscular HGB Conc 31.1 g/dL (31.6-35.5); Mean Corpuscular Hemoglobin 25.3 pg (28.0-33.3); Mean Corpuscular Volume 81.4 fL (83.0-100.0); Mean Platelet Volume 9.2 fL (9.4-12.4); Monocytes # 1.4 K/mcL (0.0-1.3); Monocytes % 9.4 %; Neutrophils # 12.1 K/mcL (1.6-8.9); Platelet Count 268 K/mcL (140-400); Red Blood Count 4.58 M/mcL (4.19-5.50); Red Cell Distribution Width 15.9 % (11.5-14.5); Segmented Neutrophils % 81.5 %; White Blood Count 14.9 K/mcL (4.3-11.1)
[2019-05-25 16:46] LABS: Alanine Aminotransferase 15 Units/L (7-52); Albumin 2.9 g/dL (3.5-5.7); Albumin/Globulin Ratio 0.7 (1.1-2.2); Alkaline Phosphatase 114 Units/L (34-104); Amylase 10 Units/L (29-103); Aspartate Amino Transferase 19 Units/L (13-39); BUN/Creatinine Ratio 34 (6-26); Bilirubin,Direct 0.2 mg/dL (0.0-0.2); Bilirubin,Indirect 0.3 mg/dL (0.0-1.2); Bilirubin,Total 0.5 mg/dL (0.3-1.0); Blood Urea Nitrogen 36 mg/dL (6-20); Calcium 8.6 mg/dL (8.6-10.3); Carbon Dioxide 28 mEq/L (23-29); Chloride 91 mEq/L (98-107); Globulin 4.2 g/dL (2.4-3.5); Glucose 115 mg/dL (70-105); Lipase 4 Units/L (11-82); Osmolality,Calculated 269 (280-300); Potassium 3.4 mEq/L (3.5-5.1); Sodium 125 mEq/L (136-145); Total Protein 7.1 g/dL (6.4-8.9); eGFR For African Americans > 60 (> 60); eGFR For Non-African Americans > 60 (> 60)
[2019-05-25] MEDS ORDERED: Isovue-370 500 ML BOTTLE IVP ONE (18:26)
[2019-05-25] MEDS ORDERED: cefTRIAXone 1,000 MG in Water for inj. (sterile) 10 ML IVP STA (18:45)
--- NOTE | 2019-05-25 19:05 | Emergency Department Note ---
Disposition Clinical Impression: Hyponatremia Urinary tract infection Qualifiers: Urinary tract infection type: site unspecified Hematuria presence: with hematuria Qualified Code(s): N39.0 - Urinary tract infection, site not specified; R31.9 - Hematuria, unspecified Decubitus ulcer of left ischium Qualifiers: Pressure injury stage: unspecified pressure injury stage Qualified Code(s): L89.329 - Pressure ulcer of left buttock, unspecified stage Decubitus ulcer of right ischium Qualifiers: Pressure injury stage: unspecified pressure injury stage Qualified Code(s): L89.319 - Pressure ulcer of right buttock, unspecified stage Disposition: Admitted As Inpatient Condition: Fair Referrals: NONE,PCP [Primary Care Provider] - Forms: ED Satisfaction Letter Time of Disposition: 21:29 General Adult HPI - General Chief complaint: ED Urogenital-Male Stated complaint: bladder infection Time Seen by Provider: 05/25/19 14:44 Source: patient Limitations: no limitations - History of Present Illness Pain Scale: 7 - Related Data Home Medications Medication Instructions Recorded Confirmed Baclofen 20 mg PO BID 09/19/15 05/25/19 Gabapentin [Neurontin] 800 mg PO QID 09/19/15 05/25/19 Morphine Sulfate/Naltrexone 1 tab PO BID 08/26/17 05/25/19 [Embeda ER 100-4 mg Capsule] Oxycodone HCl 20 mg PO QID PRN 05/25/19 05/25/19 diazePAM [Valium] 5 mg PO BID PRN 05/25/19 05/25/19 Allergies Allergy/AdvReac Type Severity Reaction Status Date / Time No Known Allergies Allergy Verified 02/17/18 17:16 Constitutional: Reports: as per HPI. Denies: fever, chills, weakness Cardiovascular: Denies: chest pain, palpitations Respiratory: Denies: cough, dyspnea, wheezes Gastrointestinal: Denies: abdominal pain, nausea, vomiting, diarrhea Genitourinary: Reports: as per HPI, other (Sediment noted in the urinary catheter bag). Denies: urgency, dysuria, frequency Musculoskeletal: Denies: back pain, neck pain, joint swelling Neurological: Denies: headache, weakness, numbness, paresthesias Past Medical History - Past Medical History Medical history: Reports: non-contributory, other Surgical history: Reports: colostomy, vasectomy, other Psychiatric history: Reports: anxiety, depression - Social History Smoking Status: Former smoker Smokeless Tobacco Status: No Alcohol use: Reports: none Drug use: Reports: none Physical Exam - General Limitations: no limitations General appearance: alert, in no apparent distress Course Course Narrative: 1829: I have assumed care of this patient from JEWELS Salgado due to mid-level shift change. Please see Damian's documentation for care performed prior to my arrival as well as complete physical exam findings. Briefly, this is a 53-year-old male paraplegic with a chronic indwelling urinary catheter. He presented for concerns of a urinary tract infection, as he had noticed some sediment in the catheter drainage bag. He stated that the sediment was noticed 2 days ago. He also complained of some intermittent confusion since yesterday and also some generalized weakness. He states that this is consistent with prior urinary tract infections. He denied any fever or chills. He denies any chest pain, shortness of breath, or abdominal pain. Damian had contacted the hospitalist prior to my arrival for admission to the hospitalist service however the hospitalist requested CT imaging of the abdomen and pelvis for further evaluation of known decubitus ulcers. CT of the abdomen and pelvis has been ordered. The patient will be admitted to the hospital service after CT imaging has been obtained and evaluated. 2119: I spoke with Dr. Blackburn, general surgeon on-call regarding CT findings of potential osteomyelitis in the left ischium and pubis. He states he feels comfortable keeping the patient here. The patient will be admitted to the hospital service with in-house surgery consultation. Brought coverage antibiotics have been started. 2124: I spoke with Dr. Lion, admitting hospitalist who has accepted the patient for admission to the hospitalist services. Vital Signs Temperature 97.8 F 05/25/19 14:07 Pulse Rate 93 05/25/19 14:07 Respiratory Rate 18 05/25/19 14:07 Blood Pressure 116/70 05/25/19 14:07 O2 Sat by Pulse Oximetry 98 05/25/19 14:07 Temperature 97.8 F 05/25/19 14:07 Pulse Rate 98 05/25/19 20:51 Respiratory Rate 16 05/25/19 19:21 Blood Pressure 94/50 05/25/19 20:51 O2 Sat by Pulse Oximetry 97 05/25/19 20:51 Oxygen Delivery Oxygen Delivery Room Air Medical Decision Making - Medical Records Medical records reviewed: Yes I reviewed the patient's medical records. - Lab Data Lab results reviewed: Yes I reviewed the patient's lab results. Lab results narrative: Lab Results 05/25/19 05/25/19 05/25/19 Range/Units 14:34 16:00 16:00 WBC 14.9 H (4.3-11.1) K/mcL RBC 4.58 (4.19-5.50) M/mcL Hgb 11.6 L (12.9-16.9) g/dL Hct 37.3 L (37.5-50.1) % MCV 81.4 L (83.0-100.0) fL MCH 25.3 L (28.0-33.3) pg MCHC 31.1 L (31.6-35.5) g/dL RDW 15.9 H (11.5-14.5) % Plt Count 268 (140-400) K/mcL MPV 9.2 L (9.4-12.4) fL Immature Gran % 0.5 (0-4) % Seg Neutrophils % 81.5 % Lymphocytes % 8.3 % Monocytes % 9.4 % Eosinophils % 0.1 % Basophils % 0.2 % Neutrophils # 12.1 H (1.6-8.9) K/mcL Lymphocytes # 1.2 (0.6-4.6) K/mcL Monocytes # 1.4 H (0.0-1.3) K/mcL Eosinophils # 0.0 (0.0-0.6) K/mcL Basophils # 0.0 (0.0-0.2) K/mcL Sodium 125 L (136-145) mEq/L Potassium 3.4 L (3.5-5.1) mEq/L Chloride 91 L (98-107) mEq/L Carbon Dioxide 28 (23-29) mEq/L BUN 36 H (6-20) mg/dL Creatinine 1.07 (0.70-1.30) mg/dL Est GFR ( Amer) > 60 (> 60) Est GFR (Non-Af Amer) > 60 (> 60) BUN/Creatinine Ratio 34 H (6-26) Glucose 115 H (70-105) mg/dL Calculated Osmolality 269 L (280-300) Lactic Acid (0.5-2.2) mmol/L Calcium 8.6 (8.6-10.3) mg/dL Total Bilirubin 0.5 (0.3-1.0) mg/dL Direct Bilirubin 0.2 (0.0-0.2) mg/dL Indirect Bilirubin 0.3 (0.0-1.2) mg/dL AST 19 (13-39) Units/L ALT 15 (7-52) Units/L Alkaline Phosphatase 114 H (34-104) Units/L Serum Total Protein 7.1 (6.4-8.9) g/dL Albumin 2.9 L (3.5-5.7) g/dL Globulin 4.2 H (2.4-3.5) g/dL Albumin/Globulin Ratio 0.7 L (1.1-2.2) Amylase 10 L (29-103) Units/L Lipase 4 L (11-82) Units/L Urine Color Yellow (Yellow) Urine Clarity Turbid A (Clear) Urine pH 6.5 (5.0-8.0) pH Units Ur Specific [place] 1.015 (1.010-1.025) Urine Protein 100 H (Neg-Trace) mg/dL Urine Glucose (UA) Normal (Normal) mg/dL Urine Ketones Negative (Negative) mg/dL Urine Blood Moderate H (Negative) Urine Nitrite Negative (Negative) Urine Bilirubin Negative (Negative) Urine Urobilinogen Normal (Normal) mg/dL Ur Leukocyte Esterase Large H (Negative) Urine Microscopic RBC 5-15 H (0-3) per hpf Urine Microscopic WBC TNTC H (0-3) per hpf Ur Squamous Epith Cells Many H (None-Few) per lpf Urine Bacteria Moderate H (None-Few) per hpf Urine Mucus Few (Few) Ur Culture Indicated? YES A (NO) 05/25/19 Range/Units 16:10 WBC (4.3-11.1) K/mcL RBC (4.19-5.50) M/mcL Hgb (12.9-16.9) g/dL Hct (37.5-50.1) % MCV (83.0-100.0) fL MCH (28.0-33.3) pg MCHC (31.6-35.5) g/dL RDW (11.5-14.5) % Plt Count (140-400) K/mcL MPV (9.4-12.4) fL Immature Gran % (0-4) % Seg Neutrophils % % Lymphocytes % % Monocytes % % Eosinophils % % Basophils % % Neutrophils # (1.6-8.9) K/mcL Lymphocytes # (0.6-4.6) K/mcL Monocytes # (0.0-1.3) K/mcL Eosinophils # (0.0-0.6) K/mcL Basophils # (0.0-0.2) K/mcL Sodium (136-145) mEq/L Potassium (3.5-5.1) mEq/L Chloride (98-107) mEq/L Carbon Dioxide (23-29) mEq/L BUN (6-20) mg/dL Creatinine (0.70-1.30) mg/dL Est GFR ( Amer) (> 60) Est GFR (Non-Af Amer) (> 60) BUN/Creatinine Ratio (6-26) Glucose (70-105) mg/dL Calculated Osmolality (280-300) Lactic Acid 1.7 (0.5-2.2) mmol/L Calcium (8.6-10.3) mg/dL Total Bilirubin (0.3-1.0) mg/dL Direct Bilirubin (0.0-0.2) mg/dL Indirect Bilirubin (0.0-1.2) mg/dL AST (13-39) Units/L ALT (7-52) Units/L Alkaline Phosphatase (34-104) Units/L Serum Total Protein (6.4-8.9) g/dL Albumin (3.5-5.7) g/dL Globulin (2.4-3.5) g/dL Albumin/Globulin Ratio (1.1-2.2) Amylase (29-103) Units/L Lipase (11-82) Units/L Urine Color (Yellow) Urine Clarity (Clear) Urine pH (5.0-8.0) pH Units Ur Specific [place] (1.010-1.025) Urine Protein (Neg-Trace) mg/dL Urine Glucose (UA) (Normal) mg/dL Urine Ketones (Negative) mg/dL Urine Blood (Negative) Urine Nitrite (Negative) Urine Bilirubin (Negative) Urine Urobilinogen (Normal) mg/dL Ur Leukocyte Esterase (Negative) Urine Microscopic RBC (0-3) per hpf Urine Microscopic WBC (0-3) per hpf Ur Squamous Epith Cells (None-Few) per lpf Urine Bacteria (None-Few) per hpf Urine Mucus (Few) Ur Culture Indicated? (NO) Result diagrams: 05/25/19 16:00 05/25/19 16:00 Lab Results 05/25/19 05/25/19 05/25/19 Range/Units 14:34 16:00 16:00 WBC 14.9 H (4.3-11.1) K/mcL RBC 4.58 (4.19-5.50) M/mcL Hgb 11.6 L (12.9-16.9) g/dL Hct 37.3 L (37.5-50.1) % MCV 81.4 L (83.0-100.0) fL MCH 25.3 L (28.0-33.3) pg MCHC 31.1 L (31.6-35.5) g/dL RDW 15.9 H (11.5-14.5) % Plt Count 268 (140-400) K/mcL MPV 9.2 L (9.4-12.4) fL Immature Gran % 0.5 (0-4) % Seg Neutrophils % 81.5 % Lymphocytes % 8.3 % Monocytes % 9.4 % Eosinophils % 0.1 % Basophils % 0.2 % Neutrophils # 12.1 H (1.6-8.9) K/mcL Lymphocytes # 1.2 (0.6-4.6) K/mcL Monocytes # 1.4 H (0.0-1.3) K/mcL Eosinophils # 0.0 (0.0-0.6) K/mcL Basophils # 0.0 (0.0-0.2) K/mcL Sodium 125 L (136-145) mEq/L Potassium 3.4 L (3.5-5.1) mEq/L Chloride 91 L (98-107) mEq/L Carbon Dioxide 28 (23-29) mEq/L BUN 36 H (6-20) mg/dL Creatinine 1.07 (0.70-1.30) mg/dL Est GFR ( Amer) > 60 (> 60) Est GFR (Non-Af Amer) > 60 (> 60) BUN/Creatinine Ratio 34 H (6-26) Glucose 115 H (70-105) mg/dL Calculated Osmolality 269 L (280-300) Lactic Acid (0.5-2.2) mmol/L Calcium 8.6 (8.6-10.3) mg/dL Total Bilirubin 0.5 (0.3-1.0) mg/dL Direct Bilirubin 0.2 (0.0-0.2) mg/dL Indirect Bilirubin 0.3 (0.0-1.2) mg/dL AST 19 (13-39) Units/L ALT 15 (7-52) Units/L Alkaline Phosphatase 114 H (34-104) Units/L Serum Total Protein 7.1 (6.4-8.9) g/dL Albumin 2.9 L (3.5-5.7) g/dL Globulin 4.2 H (2.4-3.5) g/dL Albumin/Globulin Ratio 0.7 L (1.1-2.2) Amylase 10 L (29-103) Units/L Lipase 4 L (11-82) Units/L Urine Color Yellow (Yellow) Urine Clarity Turbid A (Clear) Urine pH 6.5 (5.0-8.0) pH Units Ur Specific [place] 1.015 (1.010-1.025) Urine Protein 100 H (Neg-Trace) mg/dL Urine Glucose (UA) Normal (Normal) mg/dL Urine Ketones Negative (Negative) mg/dL Urine Blood Moderate H (Negative) Urine Nitrite Negative (Negative) Urine Bilirubin Negative (Negative) Urine Urobilinogen Normal (Normal) mg/dL Ur Leukocyte Esterase Large H (Negative) Urine Microscopic RBC 5-15 H (0-3) per hpf Urine Microscopic WBC TNTC H (0-3) per hpf Ur Squamous Epith Cells Many H (None-Few) per lpf Urine Bacteria Moderate H (None-Few) per hpf Urine Mucus Few (Few) Ur Culture Indicated? YES A (NO) 05/25/19 Range/Units 16:10 WBC (4.3-11.1) K/mcL RBC (4.19-5.50) M/mcL Hgb (12.9-16.9) g/dL Hct (37.5-50.1) % MCV (83.0-100.0) fL MCH (28.0-33.3) pg MCHC (31.6-35.5) g/dL RDW (11.5-14.5) % Plt Count (140-400) K/mcL MPV (9.4-12.4) fL Immature Gran % (0-4) % Seg Neutrophils % % Lymphocytes % % Monocytes % % Eosinophils % % Basophils % % Neutrophils # (1.6-8.9) K/mcL Lymphocytes # (0.6-4.6) K/mcL Monocytes # (0.0-1.3) K/mcL Eosinophils # (0.0-0.6) K/mcL Basophils # (0.0-0.2) K/mcL Sodium (136-145) mEq/L Potassium (3.5-5.1) mEq/L Chloride (98-107) mEq/L Carbon Dioxide (23-29) mEq/L BUN (6-20) mg/dL Creatinine (0.70-1.30) mg/dL Est GFR ( Amer) (> 60) Est GFR (Non-Af Amer) (> 60) BUN/Creatinine Ratio (6-26) Glucose (70-105) mg/dL Calculated Osmolality (280-300) Lactic Acid 1.7 (0.5-2.2) mmol/L Calcium (8.6-10.3) mg/dL Total Bilirubin (0.3-1.0) mg/dL Direct Bilirubin (0.0-0.2) mg/dL Indirect Bilirubin (0.0-1.2) mg/dL AST (13-39) Units/L ALT (7-52) Units/L Alkaline Phosphatase (34-104) Units/L Serum Total Protein (6.4-8.9) g/dL Albumin (3.5-5.7) g/dL Globulin (2.4-3.5) g/dL Albumin/Globulin Ratio (1.1-2.2) Amylase (29-103) Units/L Lipase (11-82) Units/L Urine Color (Yellow) Urine Clarity (Clear) Urine pH (5.0-8.0) pH Units Ur Specific [place] (1.010-1.025) Urine Protein (Neg-Trace) mg/dL Urine Glucose (UA) (Normal) mg/dL Urine Ketones (Negative) mg/dL Urine Blood (Negative) Urine Nitrite (Negative) Urine Bilirubin (Negative) Urine Urobilinogen (Normal) mg/dL Ur Leukocyte Esterase (Negative) Urine Microscopic RBC (0-3) per hpf Urine Microscopic WBC (0-3) per hpf Ur Squamous Epith Cells (None-Few) per lpf Urine Bacteria (None-Few) per hpf Urine Mucus (Few) Ur Culture Indicated? (NO) - Radiology Data Radiology results reviewed: Yes I reviewed the patient's radiology results. Chest X-Ray 05/25/19 17:53 IMPRESSION: No acute cardiopulmonary process. D/ /25/2019 17:57:24 Brenda Buckley MD / gurmeet Interpreting Provider: Brenda Buckley MD Pelvis CT 05/25/19 20:59 IMPRESSION: Left ischial decubitus ulceration, with suspected osteomyelitis in the adjacent ischial and pubic bone. Right ischial decubitus ulcer extends to bone, without clear evidence of osteomyelitis. There is sclerosis in the acetabular region which is likely reactive. Bilateral hydroureteronephrosis. Suprapubic catheter is in normal position. Cholelithiasis. D/ / Ugo Tello MD / Ugo Tello MD Interpreting Provider: Ugo Tello MD
[2019-05-25] MEDS ORDERED: Piperacillin/Tazobactam 3.375 GM in 0.9 % Sodium Chloride Mini Bag 100 ML IVPB ONE (21:25)
[2019-05-26] MEDS ORDERED: Naloxone 0.4 MG/ML INJ IVP PRN (01:35)
--- NOTE | 2019-05-26 02:04 | Internal Med History&Physical ---
Date of Encounter: 05/26/19 Time of Encounter: 00:30 Internal Medicine - H&P: HPI Chief complaint: Osteomyelitis Admitted From: Emergency Dept Plans for Post Hospital Care: Home History of present illness: Mr. Bhardwaj is a 53 year old male Patient presented to the emergency department with complaints of possible urinary tract infection. He has chronic Han catheter for neurogenic bladder that has been present for approximately one year. He is noticed increased sediment in the catheter bag. He is also been feeling more confused and lethargic, which is consistent with previous experience with urinary tract infections in the past. He has only been able to drink some water but not very much food due to decreased appetite. He has a known history of sacral decubitus ulcer as well, and he follows with wound care regularly for this. Emergency department vital signs temperature 97.8, pulse 93, respiratory rate 1 8, blood pressure 116/70, oxygen saturation 98% CBC: White count 14.9, hemoglobin 11.6, platelets 268 BMP: Sodium 125, potassium 3.4, chloride 91, bicarbonate 28, BUN 36, creatinine 1.07, glucose 115. Lactic acid 1.7 Alkaline phosphatase 114 AST of 19 ALT 15 Urinalysis 10 protein, moderate blood, large leukocyte esterase, negative nitrite, too numerous to count white blood cells, moderate urine bacteria, many squamous epithelial cells. Chest x-ray showed no acute cardiopulmonary process CT pelvis: IMPRESSION: Left ischial decubitus ulceration, with suspected osteomyelitis in the adjacent ischial and pubic bone. Right ischial decubitus ulcer extends to bone, without clear evidence of osteomyelitis. There is sclerosis in the acetabular region which is likely reactive. Bilateral hydroureteronephrosis. Suprapubic catheter is in normal position. Cholelithiasis. Emergency department blood and wound cultures were obtained. Patient was given ceftriaxone for UTI. He was also started on Zosyn and vancomycin after the results of the CT scan indicated osteomyelitis. A consult to general surgery was placed, and they will examine patient in the morning. They are familiar with the patient due to his attendance at the wound care clinic. He was admitted to the hospital for further management. Upon my evaluation, patient is resting comfortably in hospital bed in no acute distress. He denies chest pain, dull pain, nausea, vomiting, diarrhea constipation. He is a paraplegic, and has had decubital ulcer for many years. He is a full code. Past Med Surg Social Fam HX - Past Medical History Medical history: non-contributory, other Additional medical history: chronic back pain, paralyzed from waist down Psychiatric history: anxiety, depression - Past Surgical History Surgical History: colostomy, vasectomy, other Additional surgical history: myocutaneous flap right ishium, back fractures - Social History Smoking Status: Former smoker Smokeless Tobacco Status: No Alcohol use: none Drug use: none - Family History Mother Adopted: No Family Member Ethnicity: Non- Living Status: Still Living Hx Family Cardiac Disorders: No Hx Family Respiratory Disorders: No Hx Family Cancer: No Hx Family GI Disorders: No Hx Family Endocrine Disorder: Yes Hx Family Neuromuscular Disorders: No Hx Family Neurologic Disorders: No Hx Family HEENT Disorders: No Hx Family Autoimmune Disorders: No Brother Adopted: No Living Status: Still Living Hx Family Cardiac Disorders: No Hx Family Respiratory Disorders: No Hx Family Cancer: No Hx Family GI Disorders: No Hx Family Endocrine Disorder: No Hx Family Neuromuscular Disorders: No Hx Family Neurologic Disorders: No Hx Family HEENT Disorders: No Hx Family Autoimmune Disorders: No Internal Medicine - H&P: Meds Baclofen 20 mg PO BID 09/19/15 [History] Gabapentin [Neurontin] 800 mg PO QID 09/19/15 [History] Morphine Sulfate/Naltrexone [Embeda ER 100-4 mg Capsule] 1 tab PO BID 08/26/17 [History] Oxycodone HCl 20 mg PO QID PRN 05/25/19 [History] diazePAM [Valium] 5 mg PO BID PRN 05/25/19 [History] Allergy/AdvReac Type Severity Reaction Status Date / Time No Known Allergies Allergy Verified 02/17/18 17:16 All Systems PM: A 10-system review of systems was performed and is negative for pertinent findings except as documented above in the HPI. - Constitutional Vitals: Temp Pulse Resp BP Pulse Ox 97.8 F 89 18 108/59 100 05/25/19 23:55 05/25/19 23:55 05/25/19 23:55 05/25/19 23:55 05/25/19 23:55 General appearance: Present: cooperative, A&O X 3, pleasant, no acute distress, answers questions appropriately Exam: - - Head Head exam: Present: normal inspection - Eye Eye exam: Present: EOMI, normal appearance - Respiratory Respiratory exam: Present: CTAB. Absent: rales, respiratory distress, rhonchi, wheezes - Cardiovascular Cardiovascular exam: Present: RRR. Absent: diastolic murmur, systolic murmur - GI/Abdominal GI/Abdominal exam: Present: normal bowel sounds, soft. Absent: tenderness - Extremities Exam Extremities exam: Present: warm, radial pulses palpable and symmetrical. Absent: calf tenderness, pedal edema, tenderness Additional comments: Lower extremity paralysis, no sensation - Back Exam Additional comments: Large, deep bilateral sacral decubitus ulcers with tunneling. Dressing removed for exam. - Neurological Exam Neurological exam: Present: motor sensory deficit, no focal deficits, strengths equal and symetr throughout. Absent: facial droop, speech deficit Additional comments: Lower extremity paralysis, no sensation - Skin Skin exam: Present: dry, normal color, warm Additional comments: Large bilateral sacral decubital ulcers Internal Med - H&P Results - Labs CBC & Chem 7: 05/25/19 16:00 05/25/19 16:00 Labs: Short CBC 05/25/19 Range/Units 16:00 WBC 14.9 H (4.3-11.1) K/mcL Hgb 11.6 L (12.9-16.9) g/dL Hct 37.3 L (37.5-50.1) % Plt Count 268 (140-400) K/mcL Neutrophils # 12.1 H (1.6-8.9) K/mcL BMP 05/25/19 16:00 Sodium 125 L Potassium 3.4 L Chloride 91 L Carbon Dioxide 28 BUN 36 H Creatinine 1.07 Glucose 115 H Calcium 8.6 Liver Function 05/25/19 Range/Units 16:00 Total Bilirubin 0.5 (0.3-1.0) mg/dL Direct Bilirubin 0.2 (0.0-0.2) mg/dL AST 19 (13-39) Units/L ALT 15 (7-52) Units/L Alkaline Phosphatase 114 H (34-104) Units/L Albumin 2.9 L (3.5-5.7) g/dL Urine 05/25/19 Range/Units 14:34 Urine Color Yellow (Yellow) Urine Clarity Turbid A (Clear) Urine pH 6.5 (5.0-8.0) pH Units Ur Specific [place] 1.015 (1.010-1.025) Urine Protein 100 H (Neg-Trace) mg/dL Urine Glucose (UA) Normal (Normal) mg/dL - Impressions ITS Impressions Chest X-Ray 05/25/19 17:53 IMPRESSION: No acute cardiopulmonary process. D/ /25/2019 17:57:24 Brenda Buckley MD / gurmeet Interpreting Provider: Brenda Buckley MD Pelvis CT 05/25/19 20:59 IMPRESSION: Left ischial decubitus ulceration, with suspected osteomyelitis in the adjacent ischial and pubic bone. Right ischial decubitus ulcer extends to bone, without clear evidence of osteomyelitis. There is sclerosis in the acetabular region which is likely reactive. Bilateral hydroureteronephrosis. Suprapubic catheter is in normal position. Cholelithiasis. D/ / Ugo Tello MD / Ugo Tello MD Interpreting Provider: Ugo Tello MD - Assessment and Plan (1) Osteomyelitis Current Visit: No Status: Suspected Assessment and plan: Patient has osteomyelitis on CT imaging. Has been treated for chronic osteomyelitis for several years. Started on IV antibiotics in the emergency department. Continue IV vancomycin and Zosyn Follow-up culture results Follow-up general surgery recommendations Nothing by mouth overnight. Qualifiers: Osteomyelitis type: other Osteomyelitis location: multiple sites Qualified Code(s): M86.8X0 - Other osteomyelitis, multiple sites (2) Pressure ulcer of ischial area, stage 4 Current Visit: No Status: Acute Assessment and plan: Large bilateral pressure ulcers in the sacral area. Patient has been following with wound care for this. Repeat CT indicates osteomyelitis. Patient started on vancomycin and Zosyn in the emergency department. Wound cultures, blood cultures and anaerobic cultures have been obtained. General surgery consulted in the emergency department. Follow-up culture results Continue IV antibiotics Monitor for worsening signs of infection Follow-up general surgery recommendations Qualifiers: Laterality: unspecified laterality Qualified Code(s): L89.304 - Pressure ulcer of unspecified buttock, stage 4 (3) Hyponatremia Current Visit: Yes Status: Acute Assessment and plan: Patient has had low sodium in the past, but typically his baseline is in the normal range. Likely secondary to malnutrition. Awaiting additional urine workup including urine sodium and urine osmolality. Patient has not been given IV fluids at this time. Follow-up urine sodium and urine osmolality Pending results of additional workup, may give IV fluids if indicated Continue to monitor sodium levels, avoid overcorrection Nutrition consult in the morning (4) Urinary tract infection Current Visit: Yes Status: Acute Assessment and plan: Possible urinary tract infection, patient has had increased sediment in his Han bag. Urinalysis does indicate possible infection. Follow-up urine culture Continue IV antibiotics Monitor for worsening signs of infection Qualifiers: Urinary tract infection type: site unspecified Hematuria presence: with hematuria Qualified Code(s): N39.0 - Urinary tract infection, site not specified; R31.9 - Hematuria, unspecified (5) Neurogenic bladder Current Visit: No Status: Acute Assessment and plan: Chronic indwelling Han catheter. Continue to monitor I's and O's (6) Paraplegia Current Visit: No Status: Chronic Assessment and plan: Patient chronic paraplegic, secondary to falling off a roof in 1993. (7) DVT prophylaxis Current Visit: Yes Status: Acute Assessment and plan: SCDs - Time Spent With Patient Total time spent is greater than 50% in coordination of care (as documented) at patient's floor/unit and/or counseling patient:
[2019-05-26] MEDS ORDERED: 0.9 % Sodium Chloride 1,000 ML IVC ONE (02:43)
[2019-05-26 02:57] LABS: Hematocrit 34.8 % (37.5-50.1); Hemoglobin 10.8 g/dL (12.9-16.9); Mean Corpuscular Hemoglobin 25.1 pg (28.0-33.3); Mean Corpuscular Volume 80.7 fL (83.0-100.0); Mean Platelet Volume 9.1 fL (9.4-12.4); Platelet Count 286 K/mcL (140-400); Red Blood Count 4.31 M/mcL (4.19-5.50); Red Cell Distribution Width 15.7 % (11.5-14.5); White Blood Count 12.7 K/mcL (4.3-11.1)
[2019-05-26 03:12] LABS: BUN/Creatinine Ratio 27 (6-26); Blood Urea Nitrogen 27 mg/dL (6-20); Calcium 7.9 mg/dL (8.6-10.3); Carbon Dioxide 30 mEq/L (23-29); Chloride 92 mEq/L (98-107); Glucose 124 mg/dL (70-105); Magnesium 2.2 mg/dL (1.6-2.6); Osmolality,Calculated 275 (280-300); Phosphorous 2.1 mg/dL (2.7-4.5); Potassium 3.1 mEq/L (3.5-5.1); Sodium 129 mEq/L (136-145); eGFR For African Americans > 60 (> 60); eGFR For Non-African Americans > 60 (> 60)
[2019-05-26] MEDS ORDERED: Potassium Chloride 40 MEQ, Lidocaine 1% 2 ML in D5% in Water 500 ML IVPB ONE (05:28)
[2019-05-26] MEDS: Piperacillin/Tazobactam 3.375 GM in 0.9 % Sodium Chloride Mini Bag 100 ML IVPB SCH ×3 (08:14→23:17)
[2019-05-26] MEDS: Gabapentin 400 MG CAPSULE PO SCH ×4 (10:16→20:02)
[2019-05-26] MEDS: Baclofen 10 MG TABLET PO SCH ×2 (10:16→20:02)
--- NOTE | 2019-05-26 11:44 | AcuteCare Surgery Consult Note ---
Date of Encounter: 05/26/19 Time of Encounter: 11:44 Assessment and Plan (1) Decubitus ulcer of left ischium Current Visit: Yes Status: Acute See below. Qualifiers: Pressure injury stage: stage 4 Qualified Code(s): L89.324 - Pressure ulcer of left buttock, stage 4 (2) Decubitus ulcer of right ischium Current Visit: Yes Status: Acute I explained to the patient that reviewed his previous CT scan image and after examining the wound I do not think that the wound has an active infection ongoing at this time. The wound actually has a nice healthy bed of granulation tissue. Will establish dressing change orders at this time and agree with IV antibiotics for his urinary tract infection. Will follow from a distance. Qualifiers: Pressure injury stage: stage 4 Qualified Code(s): L89.314 - Pressure ulcer of right buttock, stage 4 History of Present Illness Consult date: 05/26/19 Requesting physician: Timothy Mendez History of present illness: The patient is a 53-year-old male with a past medical history significant for lumbar spondylosis, anxiety, paraplegia, and history decubitus ulcers presented himself to the [facility] after 2 days of not feeling well and symptoms of mental status changes. The patient noticed the change in the coloration of his urine sediment as well. These had a history of urinary tract infection is been treated for several UTIs. Because of his mental status changes he is been brought to [facility] for further evaluation. The patient follows up in the wound care center regarding his sacral decubitus ulcers. He was just recently seen lisinopril the patient. Past Med Surg Social Fam HX - Past Medical History Medical history: non-contributory, other Additional medical history: chronic back pain, paralyzed from waist down Psychiatric history: anxiety, depression - Past Surgical History Surgical History: colostomy, vasectomy, other Additional surgical history: myocutaneous flap right ishium, back fractures - Social History Smoking Status: Former smoker Smokeless Tobacco Status: No Alcohol use: none Drug use: none - Family History Mother Adopted: No Family Member Ethnicity: Non- Living Status: Still Living Hx Family Cardiac Disorders: No Hx Family Respiratory Disorders: No Hx Family Cancer: No Hx Family GI Disorders: No Hx Family Endocrine Disorder: Yes Hx Family Neuromuscular Disorders: No Hx Family Neurologic Disorders: No Hx Family HEENT Disorders: No Hx Family Autoimmune Disorders: No Brother Adopted: No Living Status: Still Living Hx Family Cardiac Disorders: No Hx Family Respiratory Disorders: No Hx Family Cancer: No Hx Family GI Disorders: No Hx Family Endocrine Disorder: No Hx Family Neuromuscular Disorders: No Hx Family Neurologic Disorders: No Hx Family HEENT Disorders: No Hx Family Autoimmune Disorders: No Medications and Allergies Baclofen 20 mg PO BID 09/19/15 [History] Gabapentin [Neurontin] 800 mg PO QID 09/19/15 [History] Morphine Sulfate/Naltrexone [Embeda ER 100-4 mg Capsule] 1 tab PO BID 08/26/17 [History] Oxycodone HCl 20 mg PO QID PRN 05/25/19 [History] diazePAM [Valium] 5 mg PO BID PRN 05/25/19 [History] Allergy/AdvReac Type Severity Reaction Status Date / Time No Known Allergies Allergy Verified 02/17/18 17:16 Review of Systems All systems PM: reviewed and no additional remarkable complaints except as stated All systems PM: The remainder of the systems were reviewed and are negative General Surgery Exam Initial Vital Signs Temp Pulse Resp BP Pulse Ox 97.8 F 93 18 116/70 98 05/25/19 14:07 05/25/19 14:07 05/25/19 14:07 05/25/19 14:07 05/25/19 14:07 - General physical appearance well nourished, no distress - Additional Findings Patient has bilateral hip wounds near the sacrum. They have evidence of granulation tissue and some tracking however there is no fluctuance noted. No loculations noted. No surrounding erythema. Stage IV ulcers with no evidence of necrosis. Exam Initial Vital Signs Temp Pulse Resp BP Pulse Ox 97.8 F 93 18 116/70 98 05/25/19 14:07 05/25/19 14:07 05/25/19 14:07 05/25/19 14:07 05/25/19 14:07 Results - Labs 05/27/19 03:37 05/27/19 03:37 Abnormal lab results WBC 12.7 K/mcL (4.3-11.1) H 05/26/19 02:42 Hgb 10.8 g/dL (12.9-16.9) L 05/26/19 02:42 Hct 34.8 % (37.5-50.1) L 05/26/19 02:42 MCV 80.7 fL (83.0-100.0) L 05/26/19 02:42 MCH 25.1 pg (28.0-33.3) L 05/26/19 02:42 MCHC 31.0 g/dL (31.6-35.5) L 05/26/19 02:42 RDW 15.7 % (11.5-14.5) H 05/26/19 02:42 MPV 9.1 fL (9.4-12.4) L 05/26/19 02:42 Neutrophils # 12.1 K/mcL (1.6-8.9) H 05/25/19 16:00 Monocytes # 1.4 K/mcL (0.0-1.3) H 05/25/19 16:00 Sodium 129 mEq/L (136-145) L 05/26/19 02:42 Potassium 3.1 mEq/L (3.5-5.1) L 05/26/19 02:42 Chloride 92 mEq/L (98-107) L 05/26/19 02:42 Carbon Dioxide 30 mEq/L (23-29) H 05/26/19 02:42 BUN 27 mg/dL (6-20) H 05/26/19 02:42 BUN/Creatinine Ratio 27 (6-26) H 05/26/19 02:42 Glucose 124 mg/dL (70-105) H 05/26/19 02:42 POC Glucose 125 mg/dL (70-99) H 05/26/19 06:47 Calculated Osmolality 275 (280-300) L 05/26/19 02:42 Calcium 7.9 mg/dL (8.6-10.3) L 05/26/19 02:42 Phosphorus 2.1 mg/dL (2.7-4.5) L 05/26/19 02:42 Alkaline Phosphatase 114 Units/L (34-104) H 05/25/19 16:00 Albumin 2.9 g/dL (3.5-5.7) L 05/25/19 16:00 Globulin 4.2 g/dL (2.4-3.5) H 05/25/19 16:00 Albumin/Globulin Ratio 0.7 (1.1-2.2) L 05/25/19 16:00 Amylase 10 Units/L (29-103) L 05/25/19 16:00 Lipase 4 Units/L (11-82) L 05/25/19 16:00 Urine Clarity Turbid (Clear) A 05/25/19 14:34 Urine Protein 100 mg/dL (Neg-Trace) H 05/25/19 14:34 Urine Blood Moderate (Negative) H 05/25/19 14:34 Ur Leukocyte Esterase Large (Negative) H 05/25/19 14:34 Urine Microscopic RBC 5-15 per hpf (0-3) H 05/25/19 14:34 Urine Microscopic WBC TNTC per hpf (0-3) H 05/25/19 14:34 Ur Squamous Epith Cells Many per lpf (None-Few) H 05/25/19 14:34 Urine Bacteria Moderate per hpf (None-Few) H 05/25/19 14:34 Ur Culture Indicated? YES (NO) A 05/25/19 14:34 Urine Osmolality 274 mOsm/kg (300-1090) L 05/26/19 04:30 Diabetes panel 05/25/19 05/26/19 Range/Units 16:00 02:42 Sodium 125 L 129 L (136-145) mEq/L Potassium 3.4 L 3.1 L (3.5-5.1) mEq/L Chloride 91 L 92 L (98-107) mEq/L Carbon Dioxide 28 30 H (23-29) mEq/L BUN 36 H 27 H (6-20) mg/dL Creatinine 1.07 1.00 (0.70-1.30) mg/dL Glucose 115 H 124 H (70-105) mg/dL Calcium 8.6 7.9 L (8.6-10.3) mg/dL AST 19 (13-39) Units/L ALT 15 (7-52) Units/L Alkaline Phosphatase 114 H (34-104) Units/L Albumin 2.9 L (3.5-5.7) g/dL Calcium panel 05/25/19 05/26/19 05/26/19 Range/Units 16:00 02:42 02:42 Calcium 8.6 7.9 L (8.6-10.3) mg/dL Phosphorus 2.1 L (2.7-4.5) mg/dL Albumin 2.9 L (3.5-5.7) g/dL Pituitary panel 05/25/19 05/26/19 Range/Units 16:00 02:42 Sodium 125 L 129 L (136-145) mEq/L Potassium 3.4 L 3.1 L (3.5-5.1) mEq/L Chloride 91 L 92 L (98-107) mEq/L Carbon Dioxide 28 30 H (23-29) mEq/L BUN 36 H 27 H (6-20) mg/dL Creatinine 1.07 1.00 (0.70-1.30) mg/dL Glucose 115 H 124 H (70-105) mg/dL Calcium 8.6 7.9 L (8.6-10.3) mg/dL Adrenal panel 05/25/19 05/26/19 Range/Units 16:00 02:42 Sodium 125 L 129 L (136-145) mEq/L Potassium 3.4 L 3.1 L (3.5-5.1) mEq/L Chloride 91 L 92 L (98-107) mEq/L Carbon Dioxide 28 30 H (23-29) mEq/L BUN 36 H 27 H (6-20) mg/dL Creatinine 1.07 1.00 (0.70-1.30) mg/dL Glucose 115 H 124 H (70-105) mg/dL Calcium 8.6 7.9 L (8.6-10.3) mg/dL Total Bilirubin 0.5 (0.3-1.0) mg/dL AST 19 (13-39) Units/L ALT 15 (7-52) Units/L Alkaline Phosphatase 114 H (34-104) Units/L Albumin 2.9 L (3.5-5.7) g/dL All other labs normal. Consult Discharge Plan - Plan Referrals: NONE,PCP [Primary Care Provider] -
--- NOTE | 2019-05-26 12:06 | Urology Progress Note ---
Date of Encounter: 05/26/19 Time of Encounter: 12:06 Objective Initial Vital Signs Temp Pulse Resp BP Pulse Ox 97.8 F 93 18 116/70 98 05/25/19 14:07 05/25/19 14:07 05/25/19 14:07 05/25/19 14:07 05/25/19 14:07 - Labs 05/26/19 02:42 05/26/19 02:42 Diabetes panel 05/25/19 05/26/19 Range/Units 16:00 02:42 Sodium 125 L 129 L (136-145) mEq/L Potassium 3.4 L 3.1 L (3.5-5.1) mEq/L Chloride 91 L 92 L (98-107) mEq/L Carbon Dioxide 28 30 H (23-29) mEq/L BUN 36 H 27 H (6-20) mg/dL Creatinine 1.07 1.00 (0.70-1.30) mg/dL Glucose 115 H 124 H (70-105) mg/dL Calcium 8.6 7.9 L (8.6-10.3) mg/dL AST 19 (13-39) Units/L ALT 15 (7-52) Units/L Alkaline Phosphatase 114 H (34-104) Units/L Albumin 2.9 L (3.5-5.7) g/dL Calcium panel 05/25/19 05/26/19 05/26/19 Range/Units 16:00 02:42 02:42 Calcium 8.6 7.9 L (8.6-10.3) mg/dL Phosphorus 2.1 L (2.7-4.5) mg/dL Albumin 2.9 L (3.5-5.7) g/dL Pituitary panel 05/25/19 05/26/19 Range/Units 16:00 02:42 Sodium 125 L 129 L (136-145) mEq/L Potassium 3.4 L 3.1 L (3.5-5.1) mEq/L Chloride 91 L 92 L (98-107) mEq/L Carbon Dioxide 28 30 H (23-29) mEq/L BUN 36 H 27 H (6-20) mg/dL Creatinine 1.07 1.00 (0.70-1.30) mg/dL Glucose 115 H 124 H (70-105) mg/dL Calcium 8.6 7.9 L (8.6-10.3) mg/dL Adrenal panel 05/25/19 05/26/19 Range/Units 16:00 02:42 Sodium 125 L 129 L (136-145) mEq/L Potassium 3.4 L 3.1 L (3.5-5.1) mEq/L Chloride 91 L 92 L (98-107) mEq/L Carbon Dioxide 28 30 H (23-29) mEq/L BUN 36 H 27 H (6-20) mg/dL Creatinine 1.07 1.00 (0.70-1.30) mg/dL Glucose 115 H 124 H (70-105) mg/dL Calcium 8.6 7.9 L (8.6-10.3) mg/dL Total Bilirubin 0.5 (0.3-1.0) mg/dL AST 19 (13-39) Units/L ALT 15 (7-52) Units/L Alkaline Phosphatase 114 H (34-104) Units/L Albumin 2.9 L (3.5-5.7) g/dL Consult Discharge Plan - Plan Referrals: NONE,PCP [Primary Care Provider] -
--- NOTE | 2019-05-26 14:11 | Event Note ---
Date of Encounter: 05/26/19 Time of Encounter: 08:30 53 patient with hx of chronic decubits ulcers, paraplegia, SBC with frequent UTIs who was admitted due to confusion. Sepsis: meets 2/4 criteria, patient is afebrile, has leukocytosis but improving. Hemodynamically stable. Management as below OM: With evidence of chronic destructive changes of the bilateral ischium and pubic bones compatible with osteomyelitis which appears to be accurate on chronic. Blood and wound cultures are pending. Presents with cultures positive for Proteus. Gen. surgery consulted. Wound care is consulted. Patient on Vanc/ Zosyn, ID is consulted. Patient had a plastic surgeon that he follows up in [place]. Hyponatermia: Improving. Likely related to sepsis. Continue normal saline. UTI: Had frequent UTIs in the past. Urine culture is pending. Continue antibiotic as above. Bilateral hydronephrosis: Evaluated by urology service, no plans for intervention. Follow-up with [facility] urology. Malnutritions: will consult dietitian. Check prealbumin level.
[2019-05-26] MEDS: *HR* Heparin 5,000 UNIT/ML VIAL SQ SCH (18:32)
[2019-05-26] MEDS: 0.9 % Sodium Chloride 1,000 ML IVC SCH (20:00)
[2019-05-27 04:09] LABS: Hematocrit 34.8 % (37.5-50.1); Hemoglobin 10.8 g/dL (12.9-16.9); Mean Corpuscular Hemoglobin 25.4 pg (28.0-33.3); Mean Corpuscular Volume 81.7 fL (83.0-100.0); Mean Platelet Volume 9.3 fL (9.4-12.4); Platelet Count 285 K/mcL (140-400); Red Blood Count 4.26 M/mcL (4.19-5.50); White Blood Count 10.8 K/mcL (4.3-11.1)
[2019-05-27 04:28] LABS: Phosphorous 2.7 mg/dL (2.7-4.5)
[2019-05-27 04:55] LABS: % Iron Saturation 8 % (20-55); BUN/Creatinine Ratio 27 (6-26); Blood Urea Nitrogen 25 mg/dL (6-20); Calcium 7.4 mg/dL (8.6-10.3); Carbon Dioxide 23 mEq/L (23-29); Chloride 105 mEq/L (98-107); Ferritin 156 ng/mL (20-250); Folate 16.1 ng/mL (3.0-16.0); Glucose 99 mg/dL (70-105); Iron 13 mcg/dL (65-175); Osmolality,Calculated 290 (280-300); Potassium 3.4 mEq/L (3.5-5.1); Prealbumin < 3.0 mg/dL (17.0-34.0); Sodium 138 mEq/L (136-145); Transferrin 121 mg/dL (203-362); Vitamin B12 801 pg/mL (250-1100); eGFR For African Americans > 60 (> 60); eGFR For Non-African Americans > 60 (> 60)
[2019-05-27] MEDS: *HR* Heparin 5,000 UNIT/ML VIAL SQ SCH ×2 (05:01→17:55)
[2019-05-27] MEDS: *HR* OxyCODONE Immed Rel 5 MG TABLET PO PRN ×3 (06:53→20:51)
[2019-05-27] MEDS: Baclofen 10 MG TABLET PO SCH ×2 (07:37→20:51)
[2019-05-27] MEDS: Piperacillin/Tazobactam 3.375 GM in 0.9 % Sodium Chloride Mini Bag 100 ML IVPB SCH ×3 (07:37→23:07)
[2019-05-27] MEDS: Gabapentin 400 MG CAPSULE PO SCH ×4 (07:37→20:51)
[2019-05-27] MEDS ORDERED: Potassium Chloride Elixir 20 MEQ/15 ML UDC PO ONE (07:57)
--- NOTE | 2019-05-27 10:14 | Urology Progress Note ---
Date of Encounter: 05/27/19 Time of Encounter: 10:12 - Assessment and Plan (1) Urinary tract infection Current Visit: Yes Status: Acute Assessment and plan: 53-year-old man with a history of a urinary tract infection and vesicocutaneous fistula. He is established with [facility] urology for reconstruction. Appreciate antral medicine support. Continue IV antibiotic management. CT was reviewed. He does have bilateral hydronephrosis, but he continues to make good urine and his creatinine is stable. Urology will follow along. Qualifiers: Urinary tract infection type: site unspecified Hematuria presence: with hematuria Qualified Code(s): N39.0 - Urinary tract infection, site not specified; R31.9 - Hematuria, unspecified Progress Note Narrative: Patient sleeping today. Urine is clear from the Han catheter. Creatinine is stable. CT results reviewed. Objective Initial Vital Signs Temp Pulse Resp BP Pulse Ox 97.8 F 93 18 116/70 98 05/25/19 14:07 05/25/19 14:07 05/25/19 14:07 05/25/19 14:07 05/25/19 14:07 - General physical appearance Present: other (Sleeping) - Genitourinary Urine Appearance: Present: Clear - Labs 05/27/19 03:37 05/27/19 03:37 Diabetes panel 05/27/19 Range/Units 03:37 Sodium 138 (136-145) mEq/L Potassium 3.4 L (3.5-5.1) mEq/L Chloride 105 (98-107) mEq/L Carbon Dioxide 23 (23-29) mEq/L BUN 25 H (6-20) mg/dL Creatinine 0.92 (0.70-1.30) mg/dL Glucose 99 (70-105) mg/dL Calcium 7.4 L (8.6-10.3) mg/dL Calcium panel 05/27/19 05/27/19 Range/Units 03:37 03:37 Calcium 7.4 L (8.6-10.3) mg/dL Phosphorus 2.7 (2.7-4.5) mg/dL Pituitary panel 05/27/19 Range/Units 03:37 Sodium 138 (136-145) mEq/L Potassium 3.4 L (3.5-5.1) mEq/L Chloride 105 (98-107) mEq/L Carbon Dioxide 23 (23-29) mEq/L BUN 25 H (6-20) mg/dL Creatinine 0.92 (0.70-1.30) mg/dL Glucose 99 (70-105) mg/dL Calcium 7.4 L (8.6-10.3) mg/dL Adrenal panel 05/27/19 Range/Units 03:37 Sodium 138 (136-145) mEq/L Potassium 3.4 L (3.5-5.1) mEq/L Chloride 105 (98-107) mEq/L Carbon Dioxide 23 (23-29) mEq/L BUN 25 H (6-20) mg/dL Creatinine 0.92 (0.70-1.30) mg/dL Glucose 99 (70-105) mg/dL Calcium 7.4 L (8.6-10.3) mg/dL Consult Discharge Plan - Plan Referrals: NONE,PCP [Primary Care Provider] -
[2019-05-27] MEDS: 0.9 % Sodium Chloride 1,000 ML IVC SCH (11:53)
--- NOTE | 2019-05-27 12:54 | Internal Med Progress Note ---
Hospitalist Progress Note - Encounter Date of Encounter: 05/27/19 Time of Encounter: 08:15 - Subjective Interval History: No major events overnight. Patient was seen this a.m. He denied fever, chills or night sweats. He has no nausea, vomiting or abdominal pain. Patient denied chest pain, shortness of breath or palpitation. - Exam Vitals: Temp Pulse Resp BP Pulse Ox 97.8 F 70 16 85/43 99 05/27/19 11:34 05/27/19 11:34 05/27/19 11:34 05/27/19 11:34 05/27/19 11:34 Exam: General: Patient is alert, oriented 3. Head: Atraumatic, normal inspection, normocephalic. Eye: EOMI, PERRLA, ENT: Mucous membranes moist. Neck: Normal inspection, Respiratory: No respiratory distress, rhonchi, or wheezes noted. Cardiovascular: Regular rate and regular rhythm, : SbC in place GI: Soft, nondistended, normal bowel sounds. Extremities:No joint swelling, pedal edema, or tenderness noted. Neurological: Alert, oriented 3, bilateral lower extremity paralysis Skin: Buttock dressing - Assessment and Plan (1) Osteomyelitis Current Visit: Yes Status: Acute (2) Pressure ulcer of ischial area, stage 4 Current Visit: Yes Status: Chronic (3) Hyponatremia Current Visit: Yes Status: Resolved (4) Urinary tract infection Current Visit: Yes Status: Acute (5) Neurogenic bladder Current Visit: Yes Status: Chronic (6) Paraplegia Current Visit: Yes Status: Chronic (7) DVT prophylaxis Current Visit: Yes Status: Acute (8) Protein calorie malnutrition Current Visit: Yes Status: Acute - Summary of Assessment and Plan Summary of Assessment and Plan: 53 patient with hx of chronic decubits ulcers, paraplegia, SBC with frequent UTIs who was admitted due to confusion. Sepsis: meets 2/4 criteria, patient is afebrile, leukocytosis resolved. Hemodynamically stable. Management as below OM: With evidence of chronic destructive changes of the bilateral ischium and pubic bones compatible with osteomyelitis which appears to be accurate on chronic. Blood and wound cultures are growing GNR. Gen. surgery and Wound care are consulted. Patient on Vanc/ Zosyn day 2, ID is consulted. Patient had a plastic surgeon that he follows up in [place]. Hyponatermia: resolved Hypokalemia: repleted, check BMP tomorrow. UTI: Had frequent UTIs in the past. Urine culture is pending. Continue antibiotic as above. Bilateral hydronephrosis: Evaluated by urology service, no plans for intervention. Follow-up with [facility] urology. Protein calorie Malnutritions: will consult dietitian. prealbumin level is low. Anemia: Due to iron deficiency, start repletion. DVT prophylaxis: Heparin subcutaneous I reviewed independently all laboratory workup, pertinent images including x- rays and CT scans. I also reviewed independently and EKGs and my findings are in the body of my assessment and plan. I ordered the laboratory workup and images myself. I discussed finding with patient's, their families, RN's and consultants involved in the care of the patient. - Time Spent with Patient Total time spent is greater than 50% in coordination of care (as documented) at patient's floor/unit and/or counseling patient: Greater than 35 minutes Plan of Care Discussed with: patient Internal Medicine: Result - Labs CBC & Chem 7: 05/27/19 03:37 05/27/19 03:37 Labs: Short CBC 05/27/19 Range/Units 03:37 WBC 10.8 (4.3-11.1) K/mcL Hgb 10.8 L (12.9-16.9) g/dL Hct 34.8 L (37.5-50.1) % Plt Count 285 (140-400) K/mcL BMP 05/27/19 03:37 Sodium 138 Potassium 3.4 L Chloride 105 Carbon Dioxide 23 BUN 25 H Creatinine 0.92 Glucose 99 Calcium 7.4 L - Impressions Impressions Pelvis MRI 05/26/19 13:35 IMPRESSION: 1. Redemonstration of large bilateral decubitus ulcerations extending to the underlying osseous structures with chronic destructive changes of the bilateral ischium and pubic bones. Marrow signal changes involving the bilateral pelvis compatible with osteomyelitis which appears to be acute on chronic as described above. Surrounding subcutaneous edema compatible with cellulitis. 2. Intramuscular edema throughout the bilateral iliopsoas, left adductor musculature, and bilateral obturator internus musculature most suggestive of myositis. 3. Status post resection of the right femoral head with redemonstration of organized fluid adjacent to the resection site which is nonspecific. Please note sterility of fluid is indeterminate on imaging. Mild marrow edema of the right femur at the resection site. Findings may reflect reactive osteitis versus early changes of osteomyelitis. 4. Left acute wound is seen to extend to the level of the underlying left corpus cavernosum. The right-sided wound closely approximates the right corpus cavernosum. D/ / Angel Kennedy MD / Angel Kennedy MD Interpreting Provider: Angel Kennedy MD Consult Discharge Plan - Plan Referrals: NONE,PCP [Primary Care Provider] - (1) Osteomyelitis Qualifiers: Osteomyelitis type: other acute Osteomyelitis location: other site Qualified Code(s): M86.18 - Other acute osteomyelitis, other site (2) Pressure ulcer of ischial area, stage 4 Qualifiers: Laterality: unspecified laterality Qualified Code(s): L89.304 - Pressure ulcer of unspecified buttock, stage 4 (4) Urinary tract infection Qualifiers: Urinary tract infection type: site unspecified Hematuria presence: with hematuria Qualified Code(s): N39.0 - Urinary tract infection, site not specified; R31.9 - Hematuria, unspecified (8) Protein calorie malnutrition Qualifiers: Protein-calorie malnutrition severity: severe Qualified Code(s): E43 - Unspecified severe protein-calorie malnutrition
[2019-05-27 21:10] LABS: Acinetobacter baumannii by PCR Not Detected (Not Detect); Candida albicans by PCR Not Detected (Not Detect); Enterobacter cloacae Cmplx PCR Not Detected (Not Detect); Enterococcus by PCR Not Detected (Not Detect); Escherichia coli by PCR Not Detected (Not Detect); Klebsiella oxytoca by PCR Not Detected (Not Detect); Klebsiella pneumoniae by PCR DETECTED (Not Detect); Proteus by PCR Not Detected (Not Detect); Pseudomonas aeruginosa by PCR Not Detected (Not Detect); Serratia marcescens by PCR Not Detected (Not Detect); Staphylococcus aureus by PCR Not Detected (Not Detect); Staphylococcus by PCR Not Detected (Not Detect); Streptococcus agalactiae(B)PCR Not Detected (Not Detect); Streptococcus by PCR Not Detected (Not Detect); Streptococcus pneumoniae PCR Not Detected (Not Detect); Streptococcus pyogenes (A) PCR Not Detected (Not Detect); blaKPC Carbapenem-Resist Gene Not Detected (Not Detect); mecA Methicillin-Resist Gene Not Detected (Not Detect); vanA/B Vancomycin-Resist Genes Not Detected (Not Detect)
[2019-05-27 21:11] LABS: Candida glabrata by PCR Not Detected (Not Detect); Candida krusei by PCR Not Detected (Not Detect); Candida parapsilosis by PCR Not Detected (Not Detect); Candida tropicalis by PCR Not Detected (Not Detect)
[2019-05-28] MEDS: diazePAM 5 MG TABLET PO PRN ×2 (00:40→16:26)
--- NOTE | 2019-05-28 03:14 | Event Note ---
Date of Encounter: 05/28/19 Time of Encounter: 03:03 Notified by patient's nurse that the patient has begun to have stool coming from his wounds. I went and saw the patient to confirm and he indeed has stool coming out of the sacral wounds. The anus appears clean. This finding is new this morning as this was not present last evening. I notified General surgery, who will evaluate the patient in the morning. No urgent management at this time. We will continue to monitor closely. Nursing will continue to cleanse the wounds.
[2019-05-28] MEDS: *HR* OxyCODONE Immed Rel 5 MG TABLET PO PRN ×2 (03:18→13:44)
[2019-05-28 05:24] LABS: Hematocrit 30.9 % (37.5-50.1); Hemoglobin 9.5 g/dL (12.9-16.9); Mean Corpuscular HGB Conc 30.7 g/dL (31.6-35.5); Mean Corpuscular Hemoglobin 25.4 pg (28.0-33.3); Mean Corpuscular Volume 82.6 fL (83.0-100.0); Mean Platelet Volume 9.4 fL (9.4-12.4); Platelet Count 297 K/mcL (140-400); Red Blood Count 3.74 M/mcL (4.19-5.50); Red Cell Distribution Width 16.2 % (11.5-14.5); White Blood Count 10.2 K/mcL (4.3-11.1)
[2019-05-28] MEDS: *HR* Heparin 5,000 UNIT/ML VIAL SQ SCH ×2 (05:24→18:56)
[2019-05-28 05:44] LABS: BUN/Creatinine Ratio 28 (6-26); Blood Urea Nitrogen 17 mg/dL (6-20); Calcium 7.5 mg/dL (8.6-10.3); Carbon Dioxide 27 mEq/L (23-29); Chloride 107 mEq/L (98-107); Glucose 140 mg/dL (70-105); Osmolality,Calculated 292 (280-300); Potassium 3.4 mEq/L (3.5-5.1); Sodium 139 mEq/L (136-145); eGFR For African Americans > 60 (> 60); eGFR For Non-African Americans > 60 (> 60)
[2019-05-28] MEDS: Piperacillin/Tazobactam 3.375 GM in 0.9 % Sodium Chloride Mini Bag 100 ML IVPB SCH ×3 (07:42→23:45)
[2019-05-28] MEDS: Baclofen 10 MG TABLET PO SCH ×2 (07:43→20:51)
[2019-05-28] MEDS: Gabapentin 400 MG CAPSULE PO SCH ×4 (07:43→20:51)
--- NOTE | 2019-05-28 10:21 | AcuteCareSurgery Progress Note ---
Date of Encounter: 05/28/19 Time of Encounter: 09:50 - Assessment and Plan (1) Pressure sore of left ischium, stage 4 Current Visit: Yes Status: Chronic The patient has a stage IV ischial decubitus ulcer for greater than one year. No deep eschar is present. No sharp debridement is required. No evidence of fistula formation (2) Right ischial pressure sore, stage 4 Current Visit: Yes Status: Chronic The patient has a stage IV ischial decubitus ulcer for greater than one year. No deep eschar is present. No sharp debridement is required. No evidence of fistula formation Subjective Narrative: The patient is seen and evaluated on morning rounds with the acute care surgery team. I personally evaluated the bilateral ischial wounds associated with the area of concern. The acute care surgery team was contacted to rule out the possibility of fistula formation. I personally reviewed the MRI findings but not the MRI study. Findings are consistent with chronic osteomyelitis and erosion of the ulcers into the corpora cavernosa. Patient also has cellulitis. On physical examination the patient has stage IV bilateral ischial tuberosity wounds. These demonstrate chronic epithelial islands surrounded by granulation tissue. No sharp debridement is necessary. No evidence of fecal contamination or fistula was identified at time of examination. The patient already has a colostomy. No further workup for fistula is necessary. Continue current aggressive pressure-relief as well as wound therapy. The patient may require bilateral flap coverage of chronic ischial wounds lasting greater than one year . Objective Vital Signs - Last 8 Hours Temp Pulse Resp BP Pulse Ox 05/28/19 06:50 98.1 F 70 15 94/56 97 05/28/19 03:20 97.5 F L 67 20 107/60 99 Intake and Output 05/27/19 05/28/19 05/28/19 23:59 07:59 15:59 Intake Total 1340 / 4180 1100 / 1100 Output Total 775 / 775 Balance 1340 / 3430 325 / 325 Intake: IV Fluids 100 / 1800 350 / 350 Zosyn 3.375 GM In 0.9 % Sodium 100 / 300 100 / 100 Chloride (Mini-Bag +) 100 ML @ 25 mls/hr IVPB Q8HR IVY Rx#: [id number] Vancocin 750 MG In 0.9 % Sodium 250 / 250 Chloride 250 ML @ 167 mls/hr IVPB Q12H IVY Rx#:[id number] Oral 1240 / 2380 750 / 750 Output: Stool 250 / 250 Catheter 525 / 525 Other: Meal Dinner Percent of Meal Consumed 80% Stool Size Large Stool Consistency soft Stool Color Brown Green # Bowel Movements 1 Weight 53.3 kg Patient Weight 05/28/19 23:59 Weight 53.3 kg - General physical appearance chronically ill, other (Paraplegic) - Respiratory normal expansion, normal respiratory effort - Cardiovascular Cardiovascular exam: Present: RRR, no murmurs/rubs/gallops - Abdomen Abdomen: Present: bowel sounds present, soft - Neurologic other (Paraplegic) - Psychiatric oriented to time, oriented to person, oriented to place, speech is normal, memory intact - Labs 05/28/19 04:54 05/28/19 04:54 Diabetes panel 05/28/19 Range/Units 04:54 Sodium 139 (136-145) mEq/L Potassium 3.4 L (3.5-5.1) mEq/L Chloride 107 (98-107) mEq/L Carbon Dioxide 27 (23-29) mEq/L BUN 17 (6-20) mg/dL Creatinine 0.61 L (0.70-1.30) mg/dL Glucose 140 H (70-105) mg/dL Calcium 7.5 L (8.6-10.3) mg/dL Calcium panel 05/28/19 Range/Units 04:54 Calcium 7.5 L (8.6-10.3) mg/dL Pituitary panel 05/28/19 Range/Units 04:54 Sodium 139 (136-145) mEq/L Potassium 3.4 L (3.5-5.1) mEq/L Chloride 107 (98-107) mEq/L Carbon Dioxide 27 (23-29) mEq/L BUN 17 (6-20) mg/dL Creatinine 0.61 L (0.70-1.30) mg/dL Glucose 140 H (70-105) mg/dL Calcium 7.5 L (8.6-10.3) mg/dL Adrenal panel 05/28/19 Range/Units 04:54 Sodium 139 (136-145) mEq/L Potassium 3.4 L (3.5-5.1) mEq/L Chloride 107 (98-107) mEq/L Carbon Dioxide 27 (23-29) mEq/L BUN 17 (6-20) mg/dL Creatinine 0.61 L (0.70-1.30) mg/dL Glucose 140 H (70-105) mg/dL Calcium 7.5 L (8.6-10.3) mg/dL Consult Discharge Plan - Plan Referrals: NONE,PCP [Primary Care Provider] -
[2019-05-28] MEDS: Ringers Solution, Lactated 1,000 ML IVC SCH ×2 (11:25→23:47)
--- NOTE | 2019-05-28 12:47 | Internal Med Progress Note ---
Hospitalist Progress Note - Encounter Date of Encounter: 05/28/19 Time of Encounter: 09:15 - Subjective Interval History: Patient was seen this morning. He had an eventful night when he had stool coming out of his wound. He denied fever, chills or night sweats. He had no chest pain abdominal pain, nausea or vomiting - Exam Vitals: Temp Pulse Resp BP Pulse Ox 97.7 F 64 15 114/62 99 05/28/19 11:38 05/28/19 11:38 05/28/19 11:38 05/28/19 11:38 05/28/19 11:38 Exam: General: Patient is alert, oriented 3. Head: Atraumatic, normal inspection, normocephalic. Eye: EOMI, PERRLA, ENT: Mucous membranes moist. Neck: Normal inspection, Respiratory: No respiratory distress, rhonchi, or wheezes noted. Cardiovascular: Regular rate and regular rhythm, : SbC in place GI: Soft, nondistended, normal bowel sounds. Colonoscopy bag with brownish stool. Extremities:No joint swelling, pedal edema, or tenderness noted. Neurological: Alert, oriented 3, bilateral lower extremity paralysis Skin: Buttock dressing - Assessment and Plan (1) Osteomyelitis Current Visit: Yes Status: Acute (2) Pressure ulcer of ischial area, stage 4 Current Visit: Yes Status: Chronic (3) Hyponatremia Current Visit: Yes Status: Resolved (4) Urinary tract infection Current Visit: Yes Status: Acute (5) Neurogenic bladder Current Visit: Yes Status: Chronic (6) Paraplegia Current Visit: Yes Status: Chronic (7) DVT prophylaxis Current Visit: Yes Status: Acute (8) Protein calorie malnutrition Current Visit: Yes Status: Acute - Summary of Assessment and Plan Summary of Assessment and Plan: 53 patient with hx of chronic decubits ulcers, paraplegia, SBC with frequent UTIs who was admitted due to confusion. Sepsis: meets 2/4 criteria, patient is afebrile, leukocytosis resolved. Hemodynamically stable. Blood cultures are growing gram-negative rods, wound cultures growing Morganella and urine cultures growing Klebsiella and Proteus. Follow-up blood cultures ordered. Management as below. OM: With evidence of chronic destructive changes of the bilateral ischium and pubic bones compatible with osteomyelitis which appears to be accurate on chronic. Blood and wound cultures growing are noted as above. Gen. surgery and Wound care are consulted. Patient had fecal material coming out of his wound yesterday and he was evaluated by general surgery who do not think that he has a fistula formation. Patient on Vanc/ Zosyn day 3, ID is consulted. Patient had a plastic surgeon that he follows up in [place]. Hyponatermia: resolved Hypokalemia: repleted, check BMP tomorrow. UTI: Had frequent UTIs in the past. Urine culture is growing Proteus and Klebsiella Continue antibiotic as above. Bilateral hydronephrosis: Evaluated by urology service, no plans for intervention. Follow-up with [facility] urology. Protein calorie Malnutritions: dietitian is on board. prealbumin level is low. Anemia: Due to iron deficiency, start repletion. DVT prophylaxis: Heparin subcutaneous - Time Spent with Patient Total time spent is greater than 50% in coordination of care (as documented) at patient's floor/unit and/or counseling patient: Plan of Care Discussed with: patient Internal Medicine: Result - Labs CBC & Chem 7: 05/28/19 04:54 05/28/19 04:54 Labs: Short CBC 05/28/19 Range/Units 04:54 WBC 10.2 (4.3-11.1) K/mcL Hgb 9.5 L (12.9-16.9) g/dL Hct 30.9 L (37.5-50.1) % Plt Count 297 (140-400) K/mcL BMP 05/28/19 04:54 Sodium 139 Potassium 3.4 L Chloride 107 Carbon Dioxide 27 BUN 17 Creatinine 0.61 L Glucose 140 H Calcium 7.5 L Urine 05/25/19 Range/Units 14:34 Urine Color Yellow (Yellow) Urine Clarity Turbid A (Clear) Urine pH 6.5 (5.0-8.0) pH Units Ur Specific [place] 1.015 (1.010-1.025) Urine Protein 100 H (Neg-Trace) mg/dL Urine Glucose (UA) Normal (Normal) mg/dL - Impressions Impressions Chest X-Ray 05/25/19 17:53 IMPRESSION: No acute cardiopulmonary process. D/ /25/2019 17:57:24 Brenda Buckley MD / gurmeet Interpreting Provider: Brenda Buckley MD Consult Discharge Plan - Plan Referrals: NONE,PCP [Primary Care Provider] - (1) Osteomyelitis Qualifiers: Osteomyelitis type: other acute Osteomyelitis location: other site Qualified Code(s): M86.18 - Other acute osteomyelitis, other site (2) Pressure ulcer of ischial area, stage 4 Qualifiers: Laterality: unspecified laterality Qualified Code(s): L89.304 - Pressure ulcer of unspecified buttock, stage 4 (4) Urinary tract infection Qualifiers: Urinary tract infection type: site unspecified Hematuria presence: with hematuria Qualified Code(s): N39.0 - Urinary tract infection, site not specified; R31.9 - Hematuria, unspecified (8) Protein calorie malnutrition Qualifiers: Protein-calorie malnutrition severity: severe Qualified Code(s): E43 - Unspecified severe protein-calorie malnutrition
--- NOTE | 2019-05-28 14:47 | Infectious Disease Consult ---
Infectious Disease-Consult - Encounter Date/Time Date of Encounter: 05/28/19 Time of Encounter: 14:45 - Data of Consult Patient: new to practice Reason for consult: "OM" Consult date: 05/28/19 Requesting Physician: Cindy Squires Primary Care Provider: PCP NONE - HPI HPI: Mr. Bhardwaj is a 53-year-old male with a past medical history of paraplegia secondary to work injury, neurogenic bladder with suprapubic catheter, status post diverting colostomy, anxiety, depression, and chronic nonhealing sacral decubitus ulcers previously treated for osteomyelitis. The patient was admitted to the hospital 05/25/19 for hyponatremia, UTI, and sacral decubitus ulcers. We are consulted 05/28/19 for further workup and treatment recommendations for osteoarthritis. Briefly, the patient is a 53-year-old male with past medical history as stated above. Patient is known to the infectious disease service as a consult on his case several years ago for os mellitus of the pelvis. He continued to have nonhealing sacral wounds despite adequate treatment of zoster myelitis and he was subsequent referred to [facility] plastic surgery. Since then, he has been following with the wound clinic once a month and was seen there a couple of weeks ago. Apparently, the patient presented to the emergency department with 2 day history of feeling confused and weak with sediment in his urine. On arrival, he was tachycardic, but was afebrile and otherwise hemodynamically stable. Leukocytosis. Lactic acid and renal function were normal. Urinalysis was positive for pyuria. Chest x-ray was negative. CT of the pelvis was read as left visual decubitus ulceration with suspected osteoarthritis of the adjacent and she will be with her own. Right she will decubitus ulcer extends to the bone without clear evidence of osteomyelitis. There is sclerosis and acetabular region which is likely reactive. Bilateral hydroureteronephrosis with superpubic catheter normal position. Blood cultures were obtained 2 sets. He was given a dose of IV Rocephin for UTI and was started on Zosyn after results of his CT pelvis were noted. He was in the hospital for further evaluation and treatment. Since admission, the patient's leukocytosis has resolved. Her culture came back positive for Proteus hauseri and K. pneumoniae. Buttock wound culture was positive for M. morgannii. Blood cultures drawn in the ER were positive 1/2 sets for K. pneumoniae. Repeat blood cultures drawn 05/28/19 are pending x 2 sets. ACS was consulted and evaluated the patient and did not feel that the patient had an active infection. He had a pelvis MRI showed redemonstration of large bilateral decubitus ulcerations extending to the underlying osseous structures with chronic obstructive changes of bilateral ischium and pubic bones. There is signal changes involving the bilateral pelvis compatible with zoster myelitis which appears to be acute on chronic with surrounding subcutaneous edema compatible with cellulitis. Intramuscular edema throughout the bilateral iliopsoas, left abductor musculature, bilateral obturator internus musculature most suggestive of myositis. Status post resection of the right femoral head with redemonstration of organized fluid adjacent to the resection site which is nonspecific. Mild erythema of the right femur at the resection site which may reflect reactive osteitis versus early changes of osteomyelitis. Overnight, the patient was noted to have possible stool coming from his sacral wounds. He was reevaluated by an acute care surgery who did not feel that the patient has a fistula. Currently, he is on vancomycin and Zosyn. We have been asked to evaluate and make further recommendations. During my exam today, the patient states that for two days prior to admission he had generalized fatigue and malaise and confusion and hallucinations. Denies known fevers, chills, or rigors. Denies headache or neck pain. Denies chest pain, shortness of breath, or cough. Denies nausea, vomiting, or diarrhea. Denies abdominal pain. States he had sediment in his urine for two days, but no hematuria. States his appetite has not been very good. Denies oral thrush or skin rashes. The patient lives at home with his son. He is disabled. States he quit smoking 2 weeks ago. Denies alcohol or illicit drug use. Denies chronic infectious diseases. - ROS Review of Systems: All systems reviewed and no additional remarkable complaints except as stated. - Results CBC & Chem 7: 05/28/19 04:54 05/28/19 04:54 - Exam Vitals: Temp Pulse Resp BP Pulse Ox 98.0 F 65 16 104/67 98 05/28/19 14:33 05/28/19 14:33 05/28/19 14:33 05/28/19 14:33 05/28/19 14:33 Exam: Head: Atraumatic, normal inspection, normocephalic. Eye: EOMI, PERRLA, no scleral icterus noted. ENT: Mucous membranes moist. No odontogenic infection noted. Neck: Normal inspection, no meningismus. Respiratory: Clear to auscultation. No rales, respiratory distress, rhonchi, or wheezes noted. Cardiovascular: Regular rate and rhythm, S1 and S2 audible. No murmurs, rubs, or gallops. GI: Soft, nondistended, normal bowel sounds. Nontender. Suprapubic catheter draining clear yellow urine that appears to be leaking out from around the catheter. Extremities: No joint swelling, pedal edema, or tenderness noted. Back: Normal inspection. No vertebral tenderness noted. Right ischial and left ischial decubitus ulcers with packing intact and small amount of serous drainage noted on the dressings. No foul odor or surrounding erythema. Neurological: Alert, oriented 3, paralysis noted to the BLE. Psychiatric: normal affect, normal mood. Skin: Dry, intact, warm. Normal color. No rashes. Baclofen 20 mg PO BID 09/19/15 [History] Gabapentin [Neurontin] 800 mg PO QID 09/19/15 [History] Morphine Sulfate/Naltrexone [Embeda ER 100-4 mg Capsule] 1 tab PO BID 08/26/17 [History] Oxycodone HCl 20 mg PO QID PRN 05/25/19 [History] diazePAM [Valium] 5 mg PO BID PRN 05/25/19 [History] Allergy/AdvReac Type Severity Reaction Status Date / Time No Known Allergies Allergy Verified 02/17/18 17:16 - Assessment and Plan (1) Sepsis Current Visit: Yes Status: Acute The patient had 2 sepsis criteria (tachycardia and leukocytosis) on admission. Likely secondary to bacteremia, UTI, and possible wound infection/osteomyelitis. Improved. White blood cell count normalized. Tachycardia resolved. Blood cultures drawn 05/25/19 are +1 out of 2 sets for Klebsiella pneumoniae. Repeat blood cultures drawn on 05/28/19 are pending 2 sets. Qualifiers: Sepsis type: sepsis due to unspecified organism Sepsis acute organ dy sfunction status: without acute organ dysfunction Qualified Code(s): A41.9 - Sepsis, unspecified organism SNOMED Code(s): 31005852 (2) Osteomyelitis Current Visit: Yes Status: Suspected CT of the pelvis was read as left visual decubitus ulceration with suspected osteoarthritis of the adjacent and she will be with her own. Right she will decubitus ulcer extends to the bone without clear evidence of osteomyelitis. There is sclerosis and acetabular region which is likely reactive. Bilateral hydroureteronephrosis with superpubic catheter normal position. Pelvis MRI showed redemonstration of large bilateral decubitus ulcerations extending to the underlying osseous structures with chronic obstructive changes of bilateral ischium and pubic bones. There is signal changes involving the bilateral pelvis compatible with osteomyelitis which appears to be acute on chronic with surrounding subcutaneous edema compatible with cellulitis. Intramuscular edema throughout the bilateral iliopsoas, left abductor musculature, bilateral obturator internus musculature most suggestive of myositis. Status post resection of the right femoral head with redemonstration of organized fluid adjacent to the resection site which is nonspecific. Mild erythema of the right femur at the resection site which may reflect reactive osteitis versus early changes of osteomyelitis. Wound culture positive for M. morgannii. ACS consulted. Clinically, there does no appear to be an active infection. The patient reports improvement in the wounds per the report from wound care staff. No inflammatory markers checked. Currently on Vanc and Zosyn. Qualifiers: Osteomyelitis type: other acute Osteomyelitis location: other site Qualified Code(s): M86.18 - Other acute osteomyelitis, other site SNOMED Code(s): 39855063 (3) Urinary tract infection Current Visit: Yes Status: Acute Causative organism: P. hauseri and K. pneumoniae. Likely secondary to SPT. Urology consulted. Currently on IV Zosyn. Qualifiers: Urinary tract infection type: site unspecified Hematuria presence: with hematuria Qualified Code(s): N39.0 - Urinary tract infection, site not specified; R31.9 - Hematuria, unspecified SNOMED Code(s): 21152475 (4) Hyponatremia Current Visit: Yes Status: Resolved Likely secondary to poor PO intake prior to admission. Resolved. SNOMED Code(s): 12558621 (5) Paraplegia Current Visit: Yes Status: Chronic Secondary to work accident. SNOMED Code(s): 66902569 (6) Neurogenic bladder Current Visit: Yes Status: Chronic Secondary to paraplegia. SNOMED Code(s): 296045205 (7) Decubitus ulcer of left ischium Current Visit: Yes Status: Acute Dressing changes per the wound care team's recommendation. Qualifiers: Pressure injury stage: stage 4 Qualified Code(s): L89.324 - Pressure ulcer of left buttock, stage 4 SNOMED Code(s): 507378260 (8) Decubitus ulcer of right ischium Current Visit: Yes Status: Acute Dressing changes per wound care recommendations. Qualifiers: Pressure injury stage: stage 4 Qualified Code(s): L89.314 - Pressure ulcer of right buttock, stage 4 SNOMED Code(s): 256849804 (9) Protein calorie malnutrition Current Visit: Yes Status: Acute Qualifiers: Protein-calorie malnutrition severity: severe Qualified Code(s): E43 - Unspecified severe protein-calorie malnutrition SNOMED Code(s): 878155511 (10) Hydroureteronephrosis Current Visit: Yes Status: Chronic Noted on CT abdomen and pelvis. Chronic. Urology consulted and following. SNOMED Code(s): 74048341 - Recommendations Recommendations: Check ESR and CRP. Await repeat blood cultures to finalize. SPT management per the urology team. Discontinue Vanc and Zosyn. Start Rocephin 2 grams IV daily. Based on the clinical picture, it is difficult to tell if the patient has an active osteomyelitis. Clinically, the wounds do not appear infected and appear to be improving. Will plan to treat the bacteremia/UTI for two weeks. Recommend bone biopsy of the pelvis two weeks after antibiotics are discontinued to evaluate for active osteomyelitis. Duration of treatment depends on the clinical picture, but likely 14 days from the first set of negative blood cultures. Can likely transition to PO omnicef when ready for discharge to complete course of treatment. Monitor renal function and dose-adjust antibiotics. Past Med Surg Social Fam HX - Past Medical History Attestation: Yes The following information was validated with the patient. Source: old records reviewed, nursing notes reviewed Medical history: non-contributory, other Additional medical history: chronic back pain, paralyzed from waist down Psychiatric history: anxiety, depression - Past Surgical History Surgical History: colostomy, vasectomy, other Additional surgical history: myocutaneous flap right ishium, back fractures - Social History Smoking Status: Former smoker Smokeless Tobacco Status: No Alcohol use: none Drug use: none Current living situation: Home, With Family Activity Level: Wheelchair bound Recent Out of Country Travel Within the Last 8 Weeks: No Exposure or Possible Exposure to Illness During Travel: No - Family History Mother Adopted: No Family Member Ethnicity: Non- Living Status: Still Living Hx Family Cardiac Disorders: No Hx Family Respiratory Disorders: No Hx Family Cancer: No Hx Family GI Disorders: No Hx Family Endocrine Disorder: Yes Hx Family Neuromuscular Disorders: No Hx Family Neurologic Disorders: No Hx Family HEENT Disorders: No Hx Family Autoimmune Disorders: No Brother Adopted: No Living Status: Still Living Hx Family Cardiac Disorders: No Hx Family Respiratory Disorders: No Hx Family Cancer: No Hx Family GI Disorders: No Hx Family Endocrine Disorder: No Hx Family Neuromuscular Disorders: No Hx Family Neurologic Disorders: No Hx Family HEENT Disorders: No Hx Family Autoimmune Disorders: No Consult Discharge Plan - Plan Referrals: NONE,PCP [Primary Care Provider] - - Attending Attestation I have personally performed a face to face evaluation on this patient. I have reviewed and agree with the care plan. This is an addendum to original report dictated by Brittney Isaac CNP. Please refer to Brittney's note for full detail. Agree with above history of present illness, review of system and physical exam findings. Assessment and plan: 1. Sepsis 2. UTI with K. pneumoniae and proteus 3. bacteremia with K pneumoniae 1/2 sets likely source urine 4. h/o spina cord injury work related s/p supropubic cath and bilateral chronic hydroureteronephrosis 5. osteomyelitis of the bilateral ishchium and pubic bones - causative organism unclear Recommendations: will treat the sepsis from UTI/bacteremia with rocephin 2 grams IV q24 hours for 14 days check baseline inflammatory markers follow up as outpatient at least 2 weeks after antibiotics have been stopped to get bone biopsy and bone cultures based on that we will make recommendations on what antibiootics to use if patient becomes septic during that time, we might have no choice but to treat empirircally monitor labs and for drug toxicity
--- NOTE | 2019-05-28 15:34 | Urology Procedure Note ---
Date of Encounter: 05/28/19 Time of Encounter: 15:31 Procedures:Urology - Bladder Irrigation/Clot Evacuation Consent obtained: verbal consent Time out performed: No Irrigation: other (sterile water ) Amount of Clot: moderate sediment Patient tolerated procedure: well, no complications Continuous Bladder Irrigation: No Complications: none Additional comments: I called the patient's nurse to evaluate suprapubic catheter. Patient's nurse was concerned due to leaking around SP site. I proceeded to irrigate 200 mL of sterile water through patient's catheter. I was able to freely irrigate with return of a moderate amount of sediment. I did not experience any leaking around catheter during irrigation, and patient tolerated the procedure very well. I reattached catheter to bag and notified nurse compliance project manager patient will need linen change as well as bladder spasm medication order verification. I suspect leaking secondary to bladder spasms, as catheter appears to be functioning well and in proper position. Urology is always available as needed for any future concerns.
--- NOTE | 2019-05-28 17:39 | Event Note ---
Date of Encounter: 05/28/19 Time of Encounter: 17:38 patient seen and examined; called due to concern for feculent drainage from the wounds; of note, patient has a colostomy; no obvious fecal matter appreciated in the wounds at present; cont with current wound care, but please call if there is stool seen again so I can ascertain the origin.
[2019-05-29] MEDS: *HR* OxyCODONE Immed Rel 5 MG TABLET PO PRN ×3 (04:58→18:01)
[2019-05-29] MEDS: *HR* Heparin 5,000 UNIT/ML VIAL SQ SCH ×2 (04:58→18:02)
[2019-05-29 05:24] LABS: Hematocrit 29.7 % (37.5-50.1); Hemoglobin 8.7 g/dL (12.9-16.9); Mean Corpuscular HGB Conc 29.3 g/dL (31.6-35.5); Mean Corpuscular Hemoglobin 24.9 pg (28.0-33.3); Mean Corpuscular Volume 84.9 fL (83.0-100.0); Mean Platelet Volume 10.3 fL (9.4-12.4); Platelet Count 303 K/mcL (140-400); Red Cell Distribution Width 16.9 % (11.5-14.5)
[2019-05-29 05:45] LABS: BUN/Creatinine Ratio 24 (6-26); Blood Urea Nitrogen 11 mg/dL (6-20); Calcium 7.6 mg/dL (8.6-10.3); Carbon Dioxide 23 mEq/L (23-29); Chloride 109 mEq/L (98-107); Glucose 80 mg/dL (70-105); Osmolality,Calculated 288 (280-300); Potassium 3.7 mEq/L (3.5-5.1); Sodium 140 mEq/L (136-145); eGFR For African Americans > 60 (> 60); eGFR For Non-African Americans > 60 (> 60)
[2019-05-29] MEDS ORDERED: Aminoglycoside Consult 1 EACH MC ONE (07:41)
[2019-05-29] MEDS: Baclofen 10 MG TABLET PO SCH ×2 (08:00→22:00)
[2019-05-29] MEDS: Gabapentin 400 MG CAPSULE PO SCH ×4 (08:00→22:00)
[2019-05-29] MEDS: Piperacillin/Tazobactam 3.375 GM in 0.9 % Sodium Chloride Mini Bag 100 ML IVPB SCH (08:01)
--- NOTE | 2019-05-29 11:18 | Infectious Disease Progress No ---
ID Progress Note Date of Encounter: 05/29/19 Time of Encounter: 11:16 - Subjective Subjective: Patient seen and examined. No acute events noted overnight. Patient states overall he feels okay. Denies fevers, chills, rigors. Denies chest pain, shortness of breath, or cough. Denies nausea, vomiting, or constipation. Reports good output from his colostomy. Denies abdominal pain. States his suprapubic catheter still leaking a little. States appetite is good. Denies any pain at this time. Denies oral thrush or skin rashes. - Objective CBC & Chem 7: 05/31/19 04:27 05/31/19 04:27 - Exam Vitals: Temp Pulse Resp BP Pulse Ox 97.5 F L 50 20 109/62 99 05/29/19 07:28 05/29/19 07:28 05/29/19 07:28 05/29/19 07:28 05/29/19 07:28 Exam: Head: Atraumatic, normal inspection, normocephalic. Eye: EOMI, PERRLA, no scleral icterus noted. ENT: Mucous membranes moist. No odontogenic infection noted. Neck: Normal inspection, no meningismus. Respiratory: Clear to auscultation. No rales, respiratory distress, rhonchi, or wheezes noted. Cardiovascular: Regular rate and rhythm, S1 and S2 audible. No murmurs, rubs, or gallops. GI: Soft, nondistended, normal bowel sounds. Nontender. Suprapubic catheter draining clear yellow urine. No evidence of leaking at this time. Extremities: No joint swelling, pedal edema, or tenderness noted. Back: Normal inspection. No vertebral tenderness noted. Sacral wound dressing clean, dry, and intact 2. Neurological: Alert, oriented 3, paralysis noted to the BLE. Psychiatric: normal affect, normal mood. Skin: Dry, intact, warm. Normal color. No rashes. - Assessment and Plan (1) Sepsis Status: Resolved The patient had 2 sepsis criteria (tachycardia and leukocytosis) on admission. Likely secondary to bacteremia, UTI, and possible wound infection/osteomyelitis. Improved. White blood cell count normalized. Tachycardia resolved. Blood cultures drawn 05/25/19 are +1 out of 2 sets for Klebsiella pneumoniae. Repeat blood cultures drawn on 05/28/19 are pending 2 sets. Qualifiers: Sepsis type: sepsis due to unspecified organism Sepsis acute organ dysfunction status: without acute organ dysfunction Qualified Code(s): A41.9 - Sepsis, unspecified organism SNOMED Code(s): 42294009 (2) Osteomyelitis Status: Suspected CT of the pelvis was read as left visual decubitus ulceration with suspected osteoarthritis of the adjacent and she will be with her own. Right she will decubitus ulcer extends to the bone without clear evidence of osteomyelitis. There is sclerosis and acetabular region which is likely reactive. Bilateral hydroureteronephrosis with superpubic catheter normal position. Pelvis MRI showed redemonstration of large bilateral decubitus ulcerations extending to the underlying osseous structures with chronic obstructive changes of bilateral ischium and pubic bones. There is signal changes involving the bilateral pelvis compatible with osteomyelitis which appears to be acute on chronic with surrounding subcutaneous edema compatible with cellulitis. Intramuscular edema throughout the bilateral iliopsoas, left abductor musculature, bilateral obturator internus musculature most suggestive of myositis. Status post resection of the right femoral head with redemonstration of organized fluid adjacent to the resection site which is nonspecific. Mild erythema of the right femur at the resection site which may reflect reactive osteitis versus early changes of osteomyelitis. Wound culture positive for M. morgannii. ACS consulted. Clinically, there does no appear to be an active infection. The patient reports improvement in the wounds per the report from wound care staff. ESR 66, CRP 39. Currently on Vanc and Zosyn. Qualifiers: Osteomyelitis type: other acute Osteomyelitis location: other site Qualified Code(s): M86.18 - Other acute osteomyelitis, other site SNOMED Code(s): 13509758 (3) Urinary tract infection Status: Acute Causative organism: P. hauseri and K. pneumoniae. Likely secondary to SPT. Urology consulted. Currently on IV Zosyn. Qualifiers: Urinary tract infection type: site unspecified Hematuria presence: with hematuria Qualified Code(s): N39.0 - Urinary tract infection, site not specified; R31.9 - Hematuria, unspecified SNOMED Code(s): 10482035 (4) Hyponatremia Status: Resolved Likely secondary to poor PO intake prior to admission. Resolved. SNOMED Code(s): 51307693 (5) Paraplegia Status: Chronic Secondary to work accident. SNOMED Code(s): 50079429 (6) Neurogenic bladder Status: Chronic Secondary to paraplegia. SNOMED Code(s): 015801169 (7) Decubitus ulcer of left ischium Status: Acute Dressing changes per the wound care team's recommendation. Qualifiers: Pressure injury stage: stage 4 Qualified Code(s): L89.324 - Pressure ulcer of left buttock, stage 4 SNOMED Code(s): 482503637 (8) Decubitus ulcer of right ischium Status: Acute Dressing changes per wound care recommendations. Qualifiers: Pressure injury stage: stage 4 Qualified Code(s): L89.314 - Pressure ulcer of right buttock, stage 4 SNOMED Code(s): 285431694 (9) Protein calorie malnutrition Status: Acute Qualifiers: Protein-calorie malnutrition severity: severe Qualified Code(s): E43 - Unspecified severe protein-calorie malnutrition SNOMED Code(s): 278771307 (10) Hydroureteronephrosis Status: Chronic Noted on CT abdomen and pelvis. Chronic. Urology consulted and following. SNOMED Code(s): 95272419 - Recommendations Recommendations: Await repeat blood cultures to finalize. SPT management per the urology team. Discontinue Vanc and Zosyn. Start Rocephin 2 grams IV daily. Based on the clinical picture, it is difficult to tell if the patient has an active osteomyelitis. Clinically, the wounds do not appear infected and appear to be improving. ESR and CRP are only minimally elevated as well. Will plan to treat the bacteremia/UTI for two weeks. Recommend bone biopsy of the pelvis two weeks after antibiotics are discontinued to evaluate for active osteomyelitis. Duration of treatment depends on the clinical picture, but likely 14 days from the first set of negative blood cultures. Can likely transition to PO omnicef 300 mg twice a day when ready for discharge to complete course of treatment. If 05/28/19 cultures remain negative, plan to treat through 06/10/19. Monitor renal function and dose-adjust antibiotics. Consult Discharge Plan - Plan Additional Instructions: Follow-up appointments: If there is not an appointment listed below, please call your physician and schedule a follow-up appointment. If you have congestive heart failure and your symptoms return, make an appointment with your physician. Medication List: Carry an up to date list of medications you are taking at all time. We have given you an updated medication list including any new medications that you have been prescribed. Please provide that list to your primary provider Symptoms: If your condition changes or you experience any of the following symptoms, notify your physician immediately: Unusual or worsening pain, fever, persistent nausea and vomiting, bleeding, increase in swelling (especially in your legs), sudden weight gain, extreme dizziness, chest pain, increased drainage or redness from a wound or incision. Go to the emergency department if you experience a problem with breathing. Weights: If you have a history of swelling or shortness of breath, weigh yourself daily and notify your physician if you have a weight gain of two or more pounds in one day or 5 or more pounds in a week. If you experience any of the warning signs for stroke: Sudden numbness or weakness of the face, arm or leg; especially on one side of the body, sudden confusion, trouble speaking or understanding, sudden trouble seeing in one or both eyes, sudden trouble walking, dizziness, loss of balance or coordination, sudden sever headache with no cause; Call 911 or go to the emergency room. Stroke is a medical emergency. Some risk factors for stroke: Age, cigarette smoking, diabetes, excessive alcohol consumption, family history, high blood pressure, overweight, physical inactivity, prior stroke, heart attack, diagnosis of carotid artery stenosis or other artery disease. If you smoke, STOP: Smoking or tobacco use significantly increases your risk of heart and lung disease. Your chance of disease greatly increases if you continue to smoke. For more information, call the [place] tobacco quit line for smoking cessation 8-321-CYXF-NOW ( ) Referrals: Brittney Isaac CNP [Advanced Practice Nurse] - 06/19/19 2:00 pm Girma Bolaños MD [Partnered Physician] - 06/08/19 8:00 am Prescriptions: Oxybutynin [Ditropan] 5 mg PO TID PRN #60 tablet PRN Reason: bladder spasm Prescription Printed Ferrous Sulfate 325 mg PO DAILY@0800 #120 tablet Prescription Printed Cefdinir [Omnicef] 300 mg PO BID 10 Days #20 capsule Prescription Printed - Attending Attestation I have personally performed a face to face evaluation on this patient. I have reviewed and agree with the care plan. History and Exam by me shows: Assessment and plan: 1. Sepsis 2. UTI with K. pneumoniae and proteus 3. bacteremia with K pneumoniae 1/2 sets likely source urine 4. h/o spina cord injury work related s/p supropubic cath and bilateral chronic hydroureteronephrosis 5. osteomyelitis of the bilateral ishchium and pubic bones - causative organism unclear Recommendations: will treat the sepsis from UTI/bacteremia with rocephin 2 grams IV q24 hours for 14 days check baseline inflammatory markers follow up as outpatient at least 2 weeks after antibiotics have been stopped to get bone biopsy and bone cultures based on that we will make recommendations on what antibiootics to use if patient becomes septic during that time, we might have no choice but to treat empirircally monitor labs and for drug toxicity
--- NOTE | 2019-05-29 12:29 | Internal Med Progress Note ---
Hospitalist Progress Note - Encounter Date of Encounter: 05/29/19 Time of Encounter: 09:20 - Subjective Interval History: No major events overnight. Patient was seen this a.m. He denied fever, chills or night sweats. He has no nausea, vomiting or abdominal pain. Patient denied chest pain, shortness of breath or palpitation. - Exam Vitals: Temp Pulse Resp BP Pulse Ox 97.5 F L 50 20 109/62 99 05/29/19 07:28 05/29/19 07:28 05/29/19 07:28 05/29/19 07:28 05/29/19 07:28 Exam: General: Patient is alert, oriented 3. Head: Atraumatic, normal inspection, normocephalic. Eye: EOMI, PERRLA, ENT: Mucous membranes moist. Neck: Normal inspection, Respiratory: No respiratory distress, rhonchi, or wheezes noted. Cardiovascular: Regular rate and regular rhythm, : SbC in place, no leaking noted. GI: Soft, nondistended, normal bowel sounds. Colonoscopy bag with brownish stool. Extremities:No joint swelling, pedal edema, or tenderness noted. Neurological: Alert, oriented 3, bilateral lower extremity paralysis Skin: Buttock dressing - Assessment and Plan (1) Osteomyelitis Current Visit: Yes Status: Suspected (2) Pressure ulcer of ischial area, stage 4 Current Visit: Yes Status: Chronic (3) Hyponatremia Current Visit: Yes Status: Resolved (4) Urinary tract infection Current Visit: Yes Status: Acute (5) Neurogenic bladder Current Visit: Yes Status: Chronic (6) Paraplegia Current Visit: Yes Status: Chronic (7) DVT prophylaxis Current Visit: Yes Status: Acute (8) Protein calorie malnutrition Current Visit: Yes Status: Acute - Summary of Assessment and Plan Summary of Assessment and Plan: 53 patient with hx of chronic decubits ulcers, paraplegia, SBC with frequent UTIs who was admitted due to confusion. Sepsis: meets 2/4 criteria, patient is afebrile, leukocytosis resolved. Hemodynamically stable. Blood cultures are growing Theola, wound cultures growing Morganella and urine cultures growing Klebsiella and Proteus. Follow-up blood cultures 05/28 are still negative. Management as below. UTI: related to chronic indwelling suprapubic catheter. Urine culture is grow ing Proteus and Klebsiella, on Rocephin 4/14 days as per ID. OM: With evidence of chronic destructive changes of the bilateral ischium and pubic bones compatible with osteomyelitis which appears to be accurate on chronic. Blood and wound cultures growing are noted as above. Gen. surgery and Wound care are consulted. Patient had fecal material coming out of his wound and he was evaluated by general surgery who do not think that he has a fistula formation. Patient on Rocephin from Vnc/Zosyn as per ID. Patient had a plastic surgeon that he follows up in [place]. As per discussion with infectious disease, patient will be treated as bacteremia from his UTI. Bone biopsy would be required 2 weeks after stopping antibiotics to r/u acute OM. Bilateral hydronephrosis: Evaluated by urology service, no plans for intervention. Follow-up with [facility] urology. Protein calorie Malnutritions: dietitian is on board. prealbumin level is low. Anemia: Due to iron deficiency, start repletion. DVT prophylaxis: Heparin subcutaneous - Time Spent with Patient Total time spent is greater than 50% in coordination of care (as documented) at patient's floor/unit and/or counseling patient: Plan of Care Discussed with: patient Internal Medicine: Result - Labs CBC & Chem 7: 05/29/19 03:35 05/29/19 03:35 Labs: Short CBC 05/29/19 Range/Units 03:35 WBC 10.0 (4.3-11.1) K/mcL Hgb 8.7 L (12.9-16.9) g/dL Hct 29.7 L (37.5-50.1) % Plt Count 303 (140-400) K/mcL BMP 05/29/19 03:35 Sodium 140 Potassium 3.7 Chloride 109 H Carbon Dioxide 23 BUN 11 Creatinine 0.46 L Glucose 80 Calcium 7.6 L Consult Discharge Plan - Plan Referrals: NONE,PCP [Primary Care Provider] - (1) Osteomyelitis Qualifiers: Osteomyelitis type: other acute Osteomyelitis location: other site Qualified Code(s): M86.18 - Other acute osteomyelitis, other site (2) Pressure ulcer of ischial area, stage 4 Qualifiers: Laterality: unspecified laterality Qualified Code(s): L89.304 - Pressure ulcer of unspecified buttock, stage 4 (4) Urinary tract infection Qualifiers: Urinary tract infection type: site unspecified Hematuria presence: with hematuria Qualified Code(s): N39.0 - Urinary tract infection, site not specified; R31.9 - Hematuria, unspecified (8) Protein calorie malnutrition Qualifiers: Protein-calorie malnutrition severity: severe Qualified Code(s): E43 - Unspecified severe protein-calorie malnutrition
[2019-05-29] MEDS: cefTRIAXone 2,000 MG in 0.9 % Sodium Chloride Mini Bag 100 ML IVPB SCH (12:50)
[2019-05-29] MEDS: diazePAM 5 MG TABLET PO PRN (21:59)
[2019-05-30] MEDS: *HR* OxyCODONE Immed Rel 5 MG TABLET PO PRN ×2 (01:26→22:17)
[2019-05-30 05:01] LABS: Hematocrit 30.6 % (37.5-50.1); Hemoglobin 9.3 g/dL (12.9-16.9); Mean Corpuscular HGB Conc 30.4 g/dL (31.6-35.5); Mean Corpuscular Hemoglobin 25.3 pg (28.0-33.3); Mean Corpuscular Volume 83.4 fL (83.0-100.0); Mean Platelet Volume 9.3 fL (9.4-12.4); Platelet Count 352 K/mcL (140-400); Red Blood Count 3.67 M/mcL (4.19-5.50); Red Cell Distribution Width 16.7 % (11.5-14.5); White Blood Count 8.1 K/mcL (4.3-11.1)
[2019-05-30 05:21] LABS: BUN/Creatinine Ratio 20 (6-26); Blood Urea Nitrogen 12 mg/dL (6-20); Carbon Dioxide 28 mEq/L (23-29); Chloride 104 mEq/L (98-107); Glucose 90 mg/dL (70-105); Osmolality,Calculated 287 (280-300); Potassium 3.6 mEq/L (3.5-5.1); Sodium 139 mEq/L (136-145); eGFR For African Americans > 60 (> 60); eGFR For Non-African Americans > 60 (> 60)
[2019-05-30] MEDS: *HR* Heparin 5,000 UNIT/ML VIAL SQ SCH ×2 (06:12→18:24)
[2019-05-30] MEDS: Gabapentin 400 MG CAPSULE PO SCH ×4 (08:34→22:13)
[2019-05-30] MEDS: Baclofen 10 MG TABLET PO SCH ×2 (08:34→22:12)
--- NOTE | 2019-05-30 09:05 | Internal Med Progress Note ---
Hospitalist Progress Note - Encounter Date of Encounter: 05/30/19 Time of Encounter: 11:00 - Subjective Interval History: No acute events overnight - Exam Vitals: Temp Pulse Resp BP Pulse Ox 97.9 F 55 15 108/64 98 05/30/19 07:14 05/30/19 07:14 05/30/19 07:14 05/30/19 08:33 05/30/19 07:14 Exam: General: Patient is alert, oriented 3. Head: Atraumatic, normal inspection, normocephalic. Eye: EOMI, PERRLA, ENT: Mucous membranes moist. Neck: Normal inspection, Respiratory: No respiratory distress, rhonchi, or wheezes noted. Cardiovascular: Regular rate and regular rhythm, : SbC in place, no leaking noted. GI: Soft, nondistended, normal bowel sounds. Colonoscopy bag with brownish stool. Extremities:No joint swelling, pedal edema, or tenderness noted. Neurological: Alert, oriented 3, bilateral lower extremity paralysis Skin: Buttock dressing - Assessment and Plan (1) Sepsis Current Visit: Yes Status: Acute Assessment and Plan: Likely secondary to bacteremia, UTI and possible osteomyelitis Previous blood cultures positive for klebsiella. Repeat blod cultures so far negative bt yet to be finalized Continue ceftriaxone. Plan to discharge to complete a total of 2 weeks of omnicef on discharge Bone biopsy of pelvis recommended outpatient 2 weeks after completion of antibiotics to r/o active osteomyelitis (2) Osteomyelitis Current Visit: Yes Status: Suspected Assessment and Plan: Patient has osteomyelitis on CT imaging. Has been treated for chronic osteomyelitis for several years. Started on IV antibiotics in the emergency department. Continue IV ceftriaxone. No evidecne of acute osteomyelitis Outpatient bone biopsy (3) Pressure ulcer of ischial area, stage 4 Current Visit: Yes Status: Chronic Assessment and Plan: Large bilateral pressure ulcers in the sacral area. Patient has been following with wound care for this. Continue wound care and antibiotics (4) Hyponatremia Current Visit: Yes Status: Resolved Assessment and Plan: Corrected (5) Urinary tract infection Current Visit: Yes Status: Acute Assessment and Plan: Continue ceftriaxone (6) Neurogenic bladder Current Visit: Yes Status: Chronic Assessment and Plan: Chronic indwelling Han catheter. Continue to monitor I's and O's (7) Paraplegia Current Visit: Yes Status: Chronic Assessment and Plan: Patient chronic paraplegic, secondary to falling off a roof in 1993. (8) DVT prophylaxis Current Visit: Yes Status: Acute Assessment and Plan: SCDs (9) Protein calorie malnutrition Current Visit: Yes Status: Acute Assessment and Plan: boost with meals - Time Spent with Patient Total time spent is greater than 50% in coordination of care (as documented) at patient's floor/unit and/or counseling patient: Internal Medicine: Result - Labs CBC & Chem 7: 05/30/19 04:19 05/30/19 04:19 Labs: Short CBC 05/30/19 Range/Units 04:19 WBC 8.1 (4.3-11.1) K/mcL Hgb 9.3 L (12.9-16.9) g/dL Hct 30.6 L (37.5-50.1) % Plt Count 352 (140-400) K/mcL BMP 05/30/19 04:19 Sodium 139 Potassium 3.6 Chloride 104 Carbon Dioxide 28 BUN 12 Creatinine 0.59 L Glucose 90 Calcium 8.0 L Consult Discharge Plan - Plan Referrals: Brittney Isaac, [employer] [Advanced Practice Nurse] - 06/19/19 2:00 pm NONE,PCP [Primary Care Provider] - (1) Sepsis Qualifiers: Sepsis type: sepsis due to unspecified organism Sepsis acute organ dysfunct ion status: without acute organ dysfunction Qualified Code(s): A41.9 - Sepsis, unspecified organism (2) Osteomyelitis Qualifiers: Osteomyelitis type: other acute Osteomyelitis location: other site Qualified Code(s): M86.18 - Other acute osteomyelitis, other site (3) Pressure ulcer of ischial area, stage 4 Qualifiers: Laterality: unspecified laterality Qualified Code(s): L89.304 - Pressure ulcer of unspecified buttock, stage 4 (5) Urinary tract infection Qualifiers: Urinary tract infection type: site unspecified Hematuria presence: with hematuria Qualified Code(s): N39.0 - Urinary tract infection, site not specified; R31.9 - Hematuria, unspecified (9) Protein calorie malnutrition Qualifiers: Protein-calorie malnutrition severity: severe Qualified Code(s): E43 - Unspecified severe protein-calorie malnutrition
--- NOTE | 2019-05-30 11:06 | Infectious Disease Progress No ---
ID Progress Note Date of Encounter: 05/30/19 Time of Encounter: 11:01 - Subjective Subjective: Patient seen and examined. No acute events noted overnight. Patient states overall he feels okay, but is tired because he isn't getting much sleep at night. Denies fevers, chills, rigors. Denies chest pain, shortness of breath, or cough. Denies nausea, vomiting, or constipation. Reports good output from his colostomy. Denies abdominal pain. States his suprapubic catheter is not leaking anymore. States appetite is good. Denies any pain at this time. Denies oral thrush or skin rashes. - Objective CBC & Chem 7: 05/31/19 04:27 05/31/19 04:27 - Exam Vitals: Temp Pulse Resp BP Pulse Ox 97.9 F 55 15 108/64 98 05/30/19 07:14 05/30/19 07:14 05/30/19 07:14 05/30/19 08:33 05/30/19 07:14 Exam: Head: Atraumatic, normal inspection, normocephalic. Eye: EOMI, PERRLA, no scleral icterus noted. ENT: Mucous membranes moist. No odontogenic infection noted. Neck: Normal inspection, no meningismus. Respiratory: Clear to auscultation. No rales, respiratory distress, rhonchi, or wheezes noted. Cardiovascular: Regular rate and rhythm, S1 and S2 audible. No murmurs, rubs, or gallops. GI: Soft, nondistended, normal bowel sounds. Nontender. Suprapubic catheter draining clear yellow urine. No evidence of leaking at this time. Extremities: No joint swelling, pedal edema, or tenderness noted. Back: Normal inspection. No vertebral tenderness noted. Sacral wound dressing clean, dry, and intact 2. Neurological: Alert, oriented 3, paralysis noted to the BLE. Psychiatric: normal affect, normal mood. Skin: Dry, intact, warm. Normal color. No rashes. - Assessment and Plan (1) Sepsis Status: Resolved The patient had 2 sepsis criteria (tachycardia and leukocytosis) on admission. Likely secondary to bacteremia, UTI, and possible wound infection/osteomyelitis. Improved. White blood cell count normalized. Tachycardia resolved. Blood cultures drawn 05/25/19 are +1 out of 2 sets for Klebsiella pneumoniae. Repeat blood cultures drawn on 05/28/19 are NGTD 2 sets. Qualifiers: Sepsis type: sepsis due to unspecified organism Sepsis acute organ dysfunction status: without acute organ dysfunction Qualified Code(s): A41.9 - Sepsis, unspecified organism SNOMED Code(s): 09575848 (2) Osteomyelitis Status: Suspected CT of the pelvis was read as left visual decubitus ulceration with suspected osteoarthritis of the adjacent and she will be with her own. Right she will decubitus ulcer extends to the bone without clear evidence of osteomyelitis. There is sclerosis and acetabular region which is likely reactive. Bilateral h ydroureteronephrosis with superpubic catheter normal position. Pelvis MRI showed redemonstration of large bilateral decubitus ulcerations extending to the underlying osseous structures with chronic obstructive changes of bilateral ischium and pubic bones. There is signal changes involving the bilateral pelvis compatible with osteomyelitis which appears to be acute on chronic with surrounding subcutaneous edema compatible with cellulitis. Intramuscular edema throughout the bilateral iliopsoas, left abductor musculature, bilateral obturator internus musculature most suggestive of myositis. Status post resection of the right femoral head with redemonstration of organized fluid adjacent to the resection site which is nonspecific. Mild erythema of the right femur at the resection site which may reflect reactive osteitis versus early changes of osteomyelitis. Wound culture positive for M. morgannii. ACS consulted. Clinically, there does no appear to be an active infection. The patient reports improvement in the wounds per the report from wound care staff. ESR 66, CRP 39. Currently on Rocephin. Qualifiers: Osteomyelitis type: other acute Osteomyelitis location: other site Qualified Code(s): M86.18 - Other acute osteomyelitis, other site SNOMED Code(s): 40565144 (3) Urinary tract infection Status: Acute Causative organism: P. hauseri and K. pneumoniae. Likely secondary to SPT. Urology consulted. Currently on IV Rocephin. Qualifiers: Urinary tract infection type: site unspecified Hematuria presence: with hematuria Qualified Code(s): N39.0 - Urinary tract infection, site not specified; R31.9 - Hematuria, unspecified SNOMED Code(s): 13823332 (4) Hyponatremia Status: Resolved Likely secondary to poor PO intake prior to admission. Resolved. SNOMED Code(s): 47537731 (5) Paraplegia Status: Chronic Secondary to work accident. SNOMED Code(s): 46013650 (6) Neurogenic bladder Status: Chronic Secondary to paraplegia. SNOMED Code(s): 689443762 (7) Decubitus ulcer of left ischium Status: Acute Dressing changes per the wound care team's recommendation. Qualifiers: Pressure injury stage: stage 4 Qualified Code(s): L89.324 - Pressure ulcer of left buttock, stage 4 SNOMED Code(s): 117979319 (8) Decubitus ulcer of right ischium Status: Acute Dressing changes per wound care recommendations. Qualifiers: Pressure injury stage: stage 4 Qualified Code(s): L89.314 - Pressure ulcer of right buttock, stage 4 SNOMED Code(s): 792739651 (9) Protein calorie malnutrition Status: Acute Qualifiers: Protein-calorie malnutrition severity: severe Qualified Code(s): E43 - Unspecified severe protein-calorie malnutrition SNOMED Code(s): 932136944 (10) Hydroureteronephrosis Status: Chronic Noted on CT abdomen and pelvis. Chronic. Urology consulted and following. SNOMED Code(s): 51208659 - Recommendations Recommendations: Await repeat blood cultures to finalize. SPT management per the urology team. Continue Rocephin 2 grams IV daily. Based on the clinical picture, it is difficult to tell if the patient has an active osteomyelitis. Clinically, the wounds do not appear infected and appear to be improving. ESR and CRP are only minimally elevated as well. Will plan to treat the bacteremia/UTI for two weeks. Recommend bone biopsy of the pelvis two weeks after antibiotics are discontinued to evaluate for active osteomyelitis. Duration of treatment depends on the clinical picture, but likely 14 days from the first set of negative blood cultures. Can likely transition to PO omnicef 300 mg twice a day when ready for discharge to complete course of treatment. If 05/28/19 cultures remain negative, plan to treat through 06/10/19. Monitor renal function and dose-adjust antibiotics. Pending insurance approval for possible discharge to [facility]. If patient discharged home, please have the patient follow up with ID 06/19/19 at 1400. If discharged to [facility], please cancel appt. Consult Discharge Plan - Plan Additional Instructions: Follow-up appointments: If there is not an appointment listed below, please call your physician and josemanuel baer a follow-up appointment. If you have congestive heart failure and your symptoms return, make an appointment with your physician. Medication List: Carry an up to date list of medications you are taking at all time. We have given you an updated medication list including any new medications that you have been prescribed. Please provide that list to your primary provider Symptoms: If your condition changes or you experience any of the following sympt oms, notify your physician immediately: Unusual or worsening pain, fever, persistent nausea and vomiting, bleeding, increase in swelling (especially in your legs), sudden weight gain, extreme dizziness, chest pain, increased drainage or redness from a wound or incision. Go to the emergency department if you experience a problem with breathing. Weights: If you have a history of swelling or shortness of breath, weigh yourself daily and notify your physician if you have a weight gain of two or more pounds in one day or 5 or more pounds in a week. If you experience any of the warning signs for stroke: Sudden numbness or weakness of the face, arm or leg; especially on one side of the body, sudden confusion, trouble speaking or understanding, sudden trouble seeing in one or both eyes, sudden trouble walking, dizziness, loss of balance or coordination, sudden sever headache with no cause; Call 911 or go to the emergency room. Stroke is a medical emergency. Some risk factors for stroke: Age, cigarette smoking, diabetes, excessive alcohol consumption, family history, high blood pressure, overweight, physical inactivity, prior stroke, heart attack, diagnosis of carotid artery stenosis or other artery disease. If you smoke, STOP: Smoking or tobacco use significantly increases your risk of heart and lung disease. Your chance of disease greatly increases if you continue to smoke. For more information, call the [place] tobacco quit line for smoking cessation 4-704-QMNX-NOW ( ) Referrals: Brittney Isaac CNP [Advanced Practice Nurse] - 06/19/19 2:00 pm Girma Bolaños MD [Partnered Physician] - 06/08/19 8:00 am Prescriptions: Oxybutynin [Ditropan] 5 mg PO TID PRN #60 tablet PRN Reason: bladder spasm Prescription Printed Ferrous Sulfate 325 mg PO DAILY@0800 #120 tablet Prescription Printed Cefdinir [Omnicef] 300 mg PO BID 10 Days #20 capsule Prescription Printed - Attending Attestation I have personally performed a face to face evaluation on this patient. I have reviewed and agree with the care plan. History and Exam by me shows: Assessment and plan: 1. Sepsis 2. UTI with K. pneumoniae and proteus 3. bacteremia with K pneumoniae 1/2 sets likely source urine 4. h/o spina cord injury work related s/p supropubic cath and bilateral chronic hydroureteronephrosis 5. osteomyelitis of the bilateral ishchium and pubic bones - causative organism unclear Recommendations: will treat the sepsis from UTI/bacteremia with rocephin 2 grams IV q24 hours for 14 days check baseline inflammatory markers follow up as outpatient at least 2 weeks after antibiotics have been stopped to get bone biopsy and bone cultures based on that we will make recommendations on what antibiootics to use if patient becomes septic during that time, we might have no choice but to treat empirircally monitor labs and for drug toxicity
[2019-05-30] MEDS: cefTRIAXone 2,000 MG in 0.9 % Sodium Chloride Mini Bag 100 ML IVPB SCH (12:55)
[2019-05-31 04:53] LABS: Hematocrit 32.4 % (37.5-50.1); Hemoglobin 9.8 g/dL (12.9-16.9); Mean Corpuscular HGB Conc 30.2 g/dL (31.6-35.5); Mean Corpuscular Hemoglobin 25.4 pg (28.0-33.3); Mean Corpuscular Volume 83.9 fL (83.0-100.0); Mean Platelet Volume 9.3 fL (9.4-12.4); Platelet Count 399 K/mcL (140-400); Red Blood Count 3.86 M/mcL (4.19-5.50); Red Cell Distribution Width 16.9 % (11.5-14.5); White Blood Count 8.9 K/mcL (4.3-11.1)
[2019-05-31 05:10] LABS: BUN/Creatinine Ratio 21 (6-26); Blood Urea Nitrogen 11 mg/dL (6-20); Calcium 8.4 mg/dL (8.6-10.3); Carbon Dioxide 29 mEq/L (23-29); Chloride 106 mEq/L (98-107); Glucose 94 mg/dL (70-105); Osmolality,Calculated 289 (280-300); Potassium 3.6 mEq/L (3.5-5.1); Sodium 140 mEq/L (136-145); eGFR For African Americans > 60 (> 60); eGFR For Non-African Americans > 60 (> 60)
[2019-05-31] MEDS: *HR* Heparin 5,000 UNIT/ML VIAL SQ SCH (07:30)
--- NOTE | 2019-05-31 08:36 | Discharge Summary ---
Orders not resulted at time of discharge: Pending orders 05/25/19 18:20 Culture,Anaerobic [RM] Stat 05/25/19 18:53 Culture,Blood [BC] Stat 05/28/19 08:36 Culture,Blood [BC] Stat Date of Encounter: 05/31/19 Time of Encounter: 10:00 - Discharge Diagnosis (1) Sepsis Priority: Primary Status: Resolved Assessment and Plan: 53 year old male patient presented to the emergency department with complaints of possible urinary tract infection. He has chronic Han catheter for neurogenic bladder that has been present for approximately one year. He is noticed increased sediment in the catheter bag. He is also been feeling more confused and lethargic, which is consistent with previous experience with urinary tract infections in the past. He has only been able to drink some water but not very much food due to decreased appetite. He has a known history of sacral decubitus ulcer as well, and he follows with wound care regularly for this. He was managed for sepsis likely secondary to bacteremia, UTI and possible osteomyelitis. He was started on broad spectrum antibiotic which were tapered to ceftriaxone per ID recs. Previous blood cultures positive for klebsiella. Repeat blood cultures so far negative for 72 hours. He was seen by surgery whohave determined his buttock wounds do not appear infected. He has clinically improved and is feeling much better with no confusion. He is to complete a total of 2 weeks of omnicef on discharge. He has been given a referral for bone biopsy of pelvis 2 weeks after completion of antibiotics to r/o active osteomyelitis. He is also also noted to have a leaky suprapubic catheter and urology will see him as an outpatient for possible replacement of his catheter. He will continue oxybutynin for bladder spasms. He was discharged in a stable condition. 35 minutes was spent discharging this patient Qualifiers: Sepsis type: sepsis due to unspecified organism Sepsis acute organ dysfunction status: without acute organ dysfunction Qualified Code(s): A41.9 - Sepsis, unspecified organism (2) Osteomyelitis Priority: Primary Status: Suspected Qualifiers: Osteomyelitis type: other acute Osteomyelitis location: other site Qualified Code(s): M86.18 - Other acute osteomyelitis, other site (3) Pressure ulcer of ischial area, stage 4 Priority: Primary Status: Chronic Qualifiers: Laterality: unspecified laterality Qualified Code(s): L89.304 - Pressure ulcer of unspecified buttock, stage 4 (4) Hyponatremia Priority: Primary Status: Resolved (5) Urinary tract infection Priority: Primary Status: Acute Qualifiers: Urinary tract infection type: site unspecified Hematuria presence: with hematuria Qualified Code(s): N39.0 - Urinary tract infection, site not specified; R31.9 - Hematuria, unspecified (6) Neurogenic bladder Priority: Primary Status: Chronic (7) Paraplegia Priority: Primary Status: Chronic (8) DVT prophylaxis Priority: Primary Status: Acute (9) Protein calorie malnutrition Priority: Primary Status: Acute Qualifiers: Protein-calorie malnutrition severity: severe Qualified Code(s): E43 - Unspecified severe protein-calorie malnutrition Hospital course: Mr. Bhardwaj is a 53 year old male - Time Spent with Patient Total time spent providing and/or coordinating discharge services: - Discharge Medications Prescriptions: New Ferrous Sulfate 325 mg PO DAILY@0800 #120 tablet Oxybutynin [Ditropan] 5 mg PO TID PRN #60 tablet PRN Reason: bladder spasm Cefdinir [Omnicef] 300 mg PO BID 10 Days #20 capsule Continued Gabapentin [Neurontin] 800 mg PO QID Baclofen 20 mg PO BID Morphine Sulfate/Naltrexone [Embeda ER 100-4 mg Capsule] 1 tab PO BID diazePAM [Valium] 5 mg PO BID PRN PRN Reason: Anxiety Oxycodone HCl 20 mg PO QID PRN PRN Reason: Pain Home Medications: Baclofen 20 mg PO BID 09/19/15 [History] Gabapentin [Neurontin] 800 mg PO QID 09/19/15 [History] Morphine Sulfate/Naltrexone [Embeda ER 100-4 mg Capsule] 1 tab PO BID 08/26/17 [History] Oxycodone HCl 20 mg PO QID PRN 05/25/19 [History] diazePAM [Valium] 5 mg PO BID PRN 05/25/19 [History] Cefdinir [Omnicef] 300 mg PO BID 10 Days #20 capsule 05/31/19 [Rx] Ferrous Sulfate 325 mg PO DAILY@0800 #120 tablet 05/31/19 [Rx] Oxybutynin [Ditropan] 5 mg PO TID PRN #60 tablet 05/31/19 [Rx] Allergies/Adverse Reactions: Allergy/AdvReac Type Severity Reaction Status Date / Time No Known Allergies Allergy Verified 02/17/18 17:16 Date of admission: 05/25/19 22:45 Primary care physician: PCP NONE Consults: 05/25/19 21:25 Consult to Surgery [CONS] Stat Consulting Provider: Acute Care Surgery Reason for Consult: Cubitus ulcers, potential ischial and pubis osteomyelitis Time Notified: 21:26 Call Completed: Yes 05/26/19 01:45 Consult to Nutrition [CONS] Routine Comment: Consulting Provider: NUTRITION Reason for Dietary Consult: MST Score 05/26/19 03:15 Consult to Wound Care [CONS] Routine Reason for Consult: Bilateral sacral ulcerations, chronic osteomyelitis Call Completed: No 05/26/19 08:08 Consult to Infectious Diseases [CONS] Routine Consulting Provider: Infectious Disease Grants Reason for Consult: OM Call Completed: No 05/26/19 08:13 Consult to Urology [CONS] Routine Consulting Provider: Urology Swati Reason for Consult: Bilateral hydroureteronephrosis, multiple UTIs Call Completed: No 05/27/19 17:05 Consult to Bilingual Manager [CONS] Routine Reason for SW Consult: 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 Head: Atraumatic, normal inspection, normocephalic. Eye: EOMI, PERRLA, ENT: Mucous membranes moist. Neck: Normal inspection, Respiratory: No respiratory distress, rhonchi, or wheezes noted. Cardiovascular: Regular rate and regular rhythm, : SbC in place, no leaking noted. GI: Soft, nondistended, normal bowel sounds. Colonoscopy bag with brownish stool. Extremities:No joint swelling, pedal edema, or tenderness noted. Neurological: Alert, oriented 3, bilateral lower extremity paralysis Skin: Buttock dressing - Patient Status Disposition: Home Health Service Condition: Fair - Ambulatory Orders Ambulatory Orders: IR biopsy bone [IR] Time Frame: 24 Days, Facility: [facility], Location: [facility] - Discharge Instructions Follow Up With: Brittney Isaac CNP [Advanced Practice Nurse] - 06/19/19 2:00 pm Girma oBlaños MD [Partnered Physician] - 06/08/19 8:00 am Additional Instructions: Follow-up appointments: If there is not an appointment listed below, please call your physician and schedule a follow-up appointment. If you have congestive heart failure and your symptoms return, make an appointment with your physician. Medication List: Carry an up to date list of medications you are taking at all time. We have given you an updated medication list including any new medications that you have been prescribed. Please provide that list to your primary provider Symptoms: If your condition changes or you experience any of the following symptoms, notify your physician immediately: Unusual or worsening pain, fever, persistent nausea and vomiting, bleeding, increase in swelling (especially in your legs), sudden weight gain, extreme dizziness, chest pain, increased drainage or redness from a wound or incision. Go to the emergency department if you experience a problem with breathing. Weights: If you have a history of swelling or shortness of breath, weigh yourself daily and notify your physician if you have a weight gain of two or more pounds in one day or 5 or more pounds in a week. If you experience any of the warning signs for stroke: Sudden numbness or weakness of the face, arm or leg; especially on one side of the body, sudden confusion, trouble speaking or understanding, sudden trouble seeing in one or both eyes, sudden trouble walking, dizziness, loss of balance or coordination, sudden sever headache with no cause; Call 911 or go to the emergency room. Stroke is a medical emergency. Some risk factors for stroke: Age, cigarette smoking, diabetes, excessive alcohol consumption, family history, high blood pressure, overweight, physical inactivity, prior stroke, heart attack, diagnosis of carotid artery stenosis or other artery disease. If you smoke, STOP: Smoking or tobacco use significantly increases your risk of heart and lung disease. Your chance of disease greatly increases if you continue to smoke. For more information, call the [place] tobacco quit line for smoking cessation 8-248-Q UIT-NOW ( )
--- NOTE | 2019-05-31 08:42 | Physician Discharge Referral ---
Home Health/Hosp Referral Info Transfer to: Home Health - Diagnosis (1) Sepsis Priority: Primary Status: Acute (2) Osteomyelitis Priority: Primary Status: Suspected (3) Pressure ulcer of ischial area, stage 4 Priority: Primary Status: Chronic (4) Hyponatremia Priority: Primary Status: Resolved (5) Urinary tract infection Priority: Primary Status: Acute (6) Neurogenic bladder Priority: Primary Status: Chronic (7) Paraplegia Priority: Primary Status: Chronic (8) DVT prophylaxis Priority: Primary Status: Acute (9) Protein calorie malnutrition Priority: Primary Status: Acute - Respiratory Orders Smoking Cessation: Smoking cessation has been advised. For more information, call the [place] Tobacco Quit Line at 2-187-NYTZ-NOW. - Activity Activity Orders: Ambulate - Services Needed Following services are medically necessary services: Nursing, Home Health Aide, Physical Therapy - Transfer Medications Prescriptions: Oxybutynin [Ditropan] 5 mg PO TID PRN #60 tablet PRN Reason: bladder spasm Prescription Printed Ferrous Sulfate 325 mg PO DAILY@0800 #120 tablet Prescription Printed Cefdinir [Omnicef] 300 mg PO BID 10 Days #20 capsule Prescription Printed Home Medications: Baclofen 20 mg PO BID 09/19/15 [History] Gabapentin [Neurontin] 800 mg PO QID 09/19/15 [History] Morphine Sulfate/Naltrexone [Embeda ER 100-4 mg Capsule] 1 tab PO BID 08/26/17 [History] Oxycodone HCl 20 mg PO QID PRN 05/25/19 [History] diazePAM [Valium] 5 mg PO BID PRN 05/25/19 [History] Cefdinir [Omnicef] 300 mg PO BID 10 Days #20 capsule 05/31/19 [Rx] Ferrous Sulfate 325 mg PO DAILY@0800 #120 tablet 05/31/19 [Rx] Oxybutynin [Ditropan] 5 mg PO TID PRN #60 tablet 05/31/19 [Rx] Allergies/Adverse Reactions: Allergy/AdvReac Type Severity Reaction Status Date / Time No Known Allergies Allergy Verified 02/17/18 17:16 Certification: Further, I certify that my clinical findings support that this patient is homebound (i.e. absences from home require considerable and taxing effort and are for medical reasons or baptism services or infrequently or short duration when for other reasons) because: Homebound Reason: Patient requires assistance of a person or device to safely leave home Attestation: My signature below is to certify that this patient is under my care and that I, or nurse practitioner, or a physician's rehab care assistant working with me, has a [id number] encounter with this patient.
[2019-05-31] MEDS: Gabapentin 400 MG CAPSULE PO SCH ×2 (08:59→13:42)
[2019-05-31] MEDS: Baclofen 10 MG TABLET PO SCH (08:59)
[2019-05-31] MEDS ORDERED: FLU Vac QV 19-20 (6Month+)/PF 0.5 ML SYRINGE IM ONE (11:23)
[2019-05-31 11:49] VITALS: BP 107/66
--- NOTE | 2019-05-31 12:38 | Infectious Disease Progress No ---
ID Progress Note Date of Encounter: 05/31/19 Time of Encounter: 12:36 - Subjective Subjective: Patient seen and examined. No acute events noted overnight. Patient states overall he feels well. States he got a little sleep last night. Denies fevers, chills, rigors. Denies chest pain, shortness of breath, or cough. Denies nausea, vomiting, or constipation. Reports good output from his colostomy. Denies abdominal pain. States his suprapubic catheter is not leaking anymore. States appetite is good. Denies any pain at this time. Denies oral thrush or skin rashes. - Objective CBC & Chem 7: 05/31/19 04:27 05/31/19 04:27 - Exam Vitals: Temp Pulse Resp BP Pulse Ox 97.7 F 51 16 107/66 98 05/31/19 11:47 05/31/19 11:47 05/31/19 11:47 05/31/19 11:47 05/31/19 11:47 Exam: Head: Atraumatic, normal inspection, normocephalic. Eye: EOMI, PERRLA, no scleral icterus noted. ENT: Mucous membranes moist. No odontogenic infection noted. Neck: Normal inspection, no meningismus. Respiratory: Clear to auscultation. No rales, respiratory distress, rhonchi, or wheezes noted. Cardiovascular: Regular rate and rhythm, S1 and S2 audible. No murmurs, rubs, or gallops. GI: Soft, nondistended, normal bowel sounds. Nontender. Suprapubic catheter draining clear yellow urine. No evidence of leaking at this time. Extremities: No joint swelling, pedal edema, or tenderness noted. Back: Normal inspection. No vertebral tenderness noted. Sacral wound dressing clean, dry, and intact 2. Neurological: Alert, oriented 3, paralysis noted to the BLE. Psychiatric: normal affect, normal mood. Skin: Dry, intact, warm. Normal color. No rashes. - Assessment and Plan (1) Sepsis Current Visit: Yes Status: Resolved The patient had 2 sepsis criteria (tachycardia and leukocytosis) on admission. Likely secondary to bacteremia, UTI, and possible wound infection/osteomyelitis. Improved. White blood cell count normalized. Tachycardia resolved. Blood cultures drawn 05/25/19 are +1 out of 2 sets for Klebsiella pneumoniae. Repeat blood cultures drawn on 05/28/19 are NGTD 2 sets. Qualifiers: Sepsis type: sepsis due to unspecified organism Sepsis acute organ dysfunction status: without acute organ dysfunction Qualified Code(s): A41.9 - Sepsis, unspecified organism SNOMED Code(s): 15691052 (2) Osteomyelitis Current Visit: Yes Status: Suspected CT of the pelvis was read as left visual decubitus ulceration with suspected osteoarthritis of the adjacent and she will be with her own. Right she will decubitus ulcer extends to the bone without clear evidence of osteomyelitis. There is sclerosis and acetabular region which is likely reactive. Bilateral hydroureteronephrosis with superpubic catheter normal position. Pelvis MRI showed redemonstration of large bilateral decubitus ulcerations extending to the underlying osseous structures with chronic obstructive changes of bilateral ischium and pubic bones. There is signal changes involving the bilateral pelvis compatible with osteomyelitis which appears to be acute on chronic with surrounding subcutaneous edema compatible with cellulitis. Intramuscular edema throughout the bilateral iliopsoas, left abductor musculature, bilateral obturator internus musculature most suggestive of myositis. Status post resection of the right femoral head with redemonstration of organized fluid adjacent to the resection site which is nonspecific. Mild erythema of the right femur at the resection site which may reflect reactive osteitis versus early changes of osteomyelitis. Wound culture positive for M. morgannii. ACS consulted. Clinically, there does no appear to be an active infection. The patient reports improvement in the wounds per the report from wound care staff. ESR 66, CRP 39. Currently on Rocephin. Qualifiers: Osteomyelitis type: other acute Osteomyelitis location: other site Qualified Code(s): M86.18 - Other acute osteomyelitis, other site SNOMED Code(s): 22992453 (3) Urinary tract infection Current Visit: Yes Status: Acute Causative organism: P. hauseri and K. pneumoniae. Likely secondary to SPT. Urology consulted. Currently on IV Rocephin. Qualifiers: Urinary tract infection type: site unspecified Hematuria presence: with hematuria Qualified Code(s): N39.0 - Urinary tract infection, site not specified; R31.9 - Hematuria, unspecified SNOMED Code(s): 88650741 (4) Hyponatremia Current Visit: Yes Status: Resolved Likely secondary to poor PO intake prior to admission. Resolved. SNOMED Code(s): 81567591 (5) Paraplegia Current Visit: Yes Status: Chronic Secondary to work accident. SNOMED Code(s): 41101976 (6) Neurogenic bladder Current Visit: Yes Status: Chronic Secondary to paraplegia. SNOMED Code(s): 666238457 (7) Decubitus ulcer of left ischium Current Visit: Yes Status: Acute Dressing changes per the wound care team's recommendation. Qualifiers: Pressure injury stage: stage 4 Qualified Code(s): L89.324 - Pressure ulcer of left buttock, stage 4 SNOMED Code(s): 925177133 (8) Decubitus ulcer of right ischium Current Visit: Yes Status: Acute Dressing changes per wound care recommendations. Qualifiers: Pressure injury stage: stage 4 Qualified Code(s): L89.314 - Pressure ulcer of right buttock, stage 4 SNOMED Code(s): 905463529 (9) Protein calorie malnutrition Current Visit: Yes Status: Acute Qualifiers: Protein-calorie malnutrition severity: severe Qualified Code(s): E43 - Unspecified severe protein-calorie malnutrition SNOMED Code(s): 540301285 (10) Hydroureteronephrosis Current Visit: Yes Status: Chronic Noted on CT abdomen and pelvis. Chronic. Urology consulted and following. SNOMED Code(s): 92051770 - Recommendations Recommendations: Await repeat blood cultures to finalize. SPT management per the urology team. Continue Rocephin 2 grams IV daily. Based on the clinical picture, it is difficult to tell if the patient has an active osteomyelitis. Clinically, the wounds do not appear infected and appear to be improving. ESR and CRP are only minimally elevated as well. Will plan to treat the bacteremia/UTI for two weeks. Recommend bone biopsy of the pelvis two weeks after antibiotics are discontinued to evaluate for active osteomyelitis. Duration of treatment depends on the clinical picture, but likely 14 days from the first set of negative blood cultures. Can likely transition to PO omnicef 300 mg twice a day when ready for discharge to complete course of treatment. If 05/28/19 cultures remain negative, plan to treat through 06/10/19. Monitor renal function and dose-adjust antibiotics. Follow up with ID 06/19/19 at 1400. Consult Discharge Plan - Plan Referrals: Brittney Isaac [employer] WORKER [Advanced Practice Nurse] - 06/19/19 2:00 pm Girma Bolaños MD [Partnered Physician] - 06/08/19 8:00 am Prescriptions: Oxybutynin [Ditropan] 5 mg PO TID PRN #60 tablet PRN Reason: bladder spasm Prescription Printed Ferrous Sulfate 325 mg PO DAILY@0800 #120 tablet Prescription Printed Cefdinir [Omnicef] 300 mg PO BID 10 Days #20 capsule Prescription Printed
== END 2019-05-31 14:30 | disposition home health service (06) | DRG 698 ==
LOC: EMEROOARM 14:06 → 3NENU 22:45 → SUATTDRO 22:45 → 3NENU 23:45
PROVIDERS: ADMIT Family Medicine; ATTEND Internal Medicine

== ENCOUNTER 2019-06-10 10:38 | Inpatient (IN) ==
[2019-06-10] MEDS ORDERED: cefTRIAXone 1,000 MG in Water for inj. (sterile) 10 ML IVP ONE (10:50)
[2019-06-10 11:15] LABS: Bilirubin,Urine Negative (Negative); Blood,Urine Large (Negative); Clarity,Urine Turbid (Clear); Color,Urine Yellow (Yellow); Glucose,Urine (UA) Normal (Normal); Ketones,Urine Negative (Negative); Leukocyte Esterase,Urine Large (Negative); Nitrite,Urine Negative (Negative); PH,Urine 5.5 pH Units (5.0-8.0); Protein,Urine 100 mg/dL (Neg-Trace); Specific Gravity,Urine 1.019 (1.010-1.025); Urobilinogen,Urine Normal (Normal)
[2019-06-10 11:17] LABS: WBC,Urine TNTC per hpf (0-3)
[2019-06-10 11:32] LABS: RBC,Urine Present per hpf (0-3)
[2019-06-10 11:35] LABS: Bacteria,Urine Many per hpf (None-Few); Yeast,Urine Present per hpf (None Seen)
[2019-06-10 11:36] LABS: Hyaline Casts,Urine None Seen per lpf (None-Few); Squamous Epithelial Cell,Urine Present per lpf (None-Few)
[2019-06-10 11:36] LABS: Basophils # 0.1 K/mcL (0.0-0.2); Basophils % 0.9 %; Eosinophils % 0.3 %; Hemoglobin 12.1 g/dL (12.9-16.9); Immature Granulocytes % 0.3 % (0-4); Lymphocytes # 1.5 K/mcL (0.6-4.6); Mean Corpuscular HGB Conc 30.3 g/dL (31.6-35.5); Mean Corpuscular Hemoglobin 25.6 pg (28.0-33.3); Mean Corpuscular Volume 84.7 fL (83.0-100.0); Mean Platelet Volume 8.7 fL (9.4-12.4); Monocytes # 0.7 K/mcL (0.0-1.3); Monocytes % 5.7 %; Neutrophils # 9.1 K/mcL (1.6-8.9); Platelet Count 486 K/mcL (140-400); Red Blood Count 4.72 M/mcL (4.19-5.50); Red Cell Distribution Width 17.5 % (11.5-14.5); Segmented Neutrophils % 79.8 %; White Blood Count 11.4 K/mcL (4.3-11.1)
[2019-06-10 11:56] LABS: Alanine Aminotransferase 16 Units/L (7-52); Albumin 3.2 g/dL (3.5-5.7); Albumin/Globulin Ratio 0.7 (1.1-2.2); Alkaline Phosphatase 84 Units/L (34-104); Aspartate Amino Transferase 18 Units/L (13-39); BUN/Creatinine Ratio 23 (6-26); Bilirubin,Total 0.3 mg/dL (0.3-1.0); Blood Urea Nitrogen 30 mg/dL (6-20); Calcium 9.2 mg/dL (8.6-10.3); Carbon Dioxide 28 mEq/L (23-29); Chloride 103 mEq/L (98-107); Globulin 4.9 g/dL (2.4-3.5); Glucose 108 mg/dL (70-105); Osmolality,Calculated 289 (280-300); Sodium 136 mEq/L (136-145); Total Protein 8.1 g/dL (6.4-8.9); eGFR For African Americans > 60 (> 60); eGFR For Non-African Americans 57 (> 60)
[2019-06-10 11:57] LABS: Troponin I < 0.03 ng/mL (< 0.04)
[2019-06-10] MEDS ORDERED: Naloxone 0.4 MG/ML INJ IVP PRN (14:35)
[2019-06-10] MEDS ORDERED: Ondansetron 4 MG/2 ML VIAL IVP PRN (14:35)
[2019-06-10] MEDS: 0.9 % Sodium Chloride 1,000 ML IVC SCH (15:44)
[2019-06-10] MEDS: *HR* Heparin 5,000 UNIT/ML VIAL SQ SCH (18:17)
[2019-06-11] MEDS ORDERED: Melatonin 3 MG TABLET PO ONE (01:06)
[2019-06-11] MEDS: 0.9 % Sodium Chloride 1,000 ML IVC SCH ×3 (02:59→21:28)
[2019-06-11] MEDS: *HR* Heparin 5,000 UNIT/ML VIAL SQ SCH ×2 (05:29→17:46)
[2019-06-11 06:27] LABS: Basophils # 0.1 K/mcL (0.0-0.2); Basophils % 0.8 %; Eosinophils % 0.2 %; Hematocrit 33.7 % (37.5-50.1); Immature Granulocytes % 0.3 % (0-4); Lymphocytes # 1.4 K/mcL (0.6-4.6); Lymphocytes % 15.4 %; Mean Corpuscular HGB Conc 30.9 g/dL (31.6-35.5); Mean Corpuscular Hemoglobin 25.9 pg (28.0-33.3); Mean Corpuscular Volume 83.8 fL (83.0-100.0); Mean Platelet Volume 9.2 fL (9.4-12.4); Monocytes # 0.7 K/mcL (0.0-1.3); Monocytes % 7.8 %; Platelet Count 433 K/mcL (140-400); Red Blood Count 4.02 M/mcL (4.19-5.50); Red Cell Distribution Width 17.2 % (11.5-14.5); Segmented Neutrophils % 75.5 %; White Blood Count 9.2 K/mcL (4.3-11.1)
[2019-06-11 06:30] LABS: Hemoglobin 10.4 g/dL (12.9-16.9)
[2019-06-11 07:32] LABS: BUN/Creatinine Ratio 23 (6-26); Blood Urea Nitrogen 22 mg/dL (6-20); Calcium 8.3 mg/dL (8.6-10.3); Carbon Dioxide 24 mEq/L (23-29); Chloride 106 mEq/L (98-107); Glucose 99 mg/dL (70-105); Osmolality,Calculated 283 (280-300); Potassium 3.6 mEq/L (3.5-5.1); Sodium 135 mEq/L (136-145); eGFR For African Americans > 60 (> 60); eGFR For Non-African Americans > 60 (> 60)
[2019-06-11] MEDS ORDERED: cefTRIAXone 1,000 MG in Water for inj. (sterile) 10 ML IVP SCH (09:00)
[2019-06-11] MEDS: Baclofen 10 MG TABLET PO SCH ×3 (11:27→22:53)
[2019-06-11] MEDS: Gabapentin 400 MG CAPSULE PO SCH ×3 (11:29→22:53)
[2019-06-12] MEDS: Baclofen 10 MG TABLET PO SCH ×2 (06:37→12:26)
[2019-06-12] MEDS: *HR* Heparin 5,000 UNIT/ML VIAL SQ SCH ×2 (06:37→17:39)
[2019-06-12] MEDS: Gabapentin 400 MG CAPSULE PO SCH ×2 (06:37→12:26)
[2019-06-12] MEDS ORDERED: *HR* OxyCODONE Immed Rel 5 MG TABLET PO PRN (08:39)
[2019-06-12 10:44] LABS: Basophils % 0.3 %; Hematocrit 38.2 % (37.5-50.1); Hemoglobin 11.7 g/dL (12.9-16.9); Immature Granulocytes % 0.4 % (0-4); Lymphocytes # 1.4 K/mcL (0.6-4.6); Lymphocytes % 9.5 %; Mean Corpuscular HGB Conc 30.6 g/dL (31.6-35.5); Mean Corpuscular Hemoglobin 25.9 pg (28.0-33.3); Mean Corpuscular Volume 84.5 fL (83.0-100.0); Monocytes # 0.5 K/mcL (0.0-1.3); Monocytes % 3.5 %; Neutrophils # 13.1 K/mcL (1.6-8.9); Platelet Count 500 K/mcL (140-400); Red Blood Count 4.52 M/mcL (4.19-5.50); Red Cell Distribution Width 17.8 % (11.5-14.5); Segmented Neutrophils % 86.3 %
[2019-06-12 10:46] LABS: Basophils # 0.1 K/mcL (0.0-0.2); White Blood Count 15.2 K/mcL (4.3-11.1)
[2019-06-12 11:02] LABS: BUN/Creatinine Ratio 25 (6-26); Blood Urea Nitrogen 19 mg/dL (6-20); Calcium 8.7 mg/dL (8.6-10.3); Carbon Dioxide 19 mEq/L (23-29); Chloride 107 mEq/L (98-107); Glucose 98 mg/dL (70-105); Osmolality,Calculated 298 (280-300); Potassium 3.4 mEq/L (3.5-5.1); Sodium 143 mEq/L (136-145); eGFR For African Americans > 60 (> 60); eGFR For Non-African Americans > 60 (> 60)
[2019-06-12] MEDS: Piperacillin/Tazobactam 3.375 GM in 0.9 % Sodium Chloride Mini Bag 100 ML IVPB SCH ×2 (12:45→21:03)
[2019-06-12] MEDS ORDERED: *HR* LORazepam 2 MG/ML VIAL IVP PRN (13:40)
[2019-06-12 14:23] LABS: Adenovirus F 40/41 PCR Not detected (Not detect); Astrovirus PCR Not detected (Not detect); C.difficile Toxin A/B Gene PCR Not detected (Not detect); Campylobacter by PCR Not detected (Not detect); Cryptosporidium by PCR Not detected (Not detect); Cyclospora cayetanensis PCR Not detected (Not detect); E. coli O157 by PCR Not detected (Not detect); Entamoeba histolytica PCR Not detected (Not detect); Enteroaggregative E.coli(EAEC) Not detected (Not detect); Enteropathogenic E.coli(EPEC) Not detected (Not detect); Enterotoxigenic E.coli (ETEC) Not detected (Not detect); Giardia lamblia PCR Not detected (Not detect); Norovirus GI/GII PCR Not detected (Not detect); Plesiomonas shigelloides PCR Not detected (Not detect); Rotavirus A PCR Not detected (Not detect); Salmonella PCR Not detected (Not detect); Sapovirus PCR Not detected (Not detect); Shig/EnteroinvasiveE coli EIEC Not detected (Not detect); Shigalike tox-prod E coli STEC Not detected (Not detect); Vibrio PCR Not detected (Not detect); Vibrio cholerae PCR Not detected (Not detect); Yersinia enterocolitica PCR Not detected (Not detect)
[2019-06-12] MEDS ORDERED: Haloperidol Lactate 5 MG/ML VIAL IVP PRN (15:23)
[2019-06-12] MEDS ORDERED: Lidocaine Jelly 6ml 1 APPL/6 ML JEL.PF.APP TP ONE (16:08)
[2019-06-12] MEDS ORDERED: *HR* LORazepam 2 MG/ML VIAL IVP ONE (17:13)
[2019-06-12] MEDS: *HR* LORazepam 2 MG/ML VIAL IVP SCH (22:09)
[2019-06-12] MEDS ORDERED: Ringers Solution, Lactated 500 ML IVC ONE ×2 (23:14→23:30)
[2019-06-12] MEDS ORDERED: Ringers Solution, Lactated 1,000 ML IVC SCH (23:15)
[2019-06-13] MEDS ORDERED: Ringers Solution, Lactated 500 ML IVC ONE (01:15)
[2019-06-13 04:33] LABS: Hematocrit 35.2 % (37.5-50.1); Hemoglobin 10.7 g/dL (12.9-16.9); Mean Corpuscular HGB Conc 30.4 g/dL (31.6-35.5); Mean Corpuscular Hemoglobin 25.8 pg (28.0-33.3); Mean Corpuscular Volume 84.8 fL (83.0-100.0); Mean Platelet Volume 9.2 fL (9.4-12.4); Platelet Count 453 K/mcL (140-400); Red Blood Count 4.15 M/mcL (4.19-5.50); Red Cell Distribution Width 17.7 % (11.5-14.5); White Blood Count 11.4 K/mcL (4.3-11.1)
[2019-06-13 04:57] LABS: BUN/Creatinine Ratio 26 (6-26); Blood Urea Nitrogen 19 mg/dL (6-20); Calcium 8.7 mg/dL (8.6-10.3); Carbon Dioxide 24 mEq/L (23-29); Chloride 110 mEq/L (98-107); Glucose 89 mg/dL (70-105); Osmolality,Calculated 308 (280-300); Potassium 2.8 mEq/L (3.5-5.1); Sodium 148 mEq/L (136-145); eGFR For African Americans > 60 (> 60); eGFR For Non-African Americans > 60 (> 60)
[2019-06-13] MEDS: *HR* LORazepam 2 MG/ML VIAL IVP SCH ×3 (05:52→19:40)
[2019-06-13] MEDS: Piperacillin/Tazobactam 3.375 GM in 0.9 % Sodium Chloride Mini Bag 100 ML IVPB SCH ×3 (06:00→19:41)
[2019-06-13] MEDS: *HR* Heparin 5,000 UNIT/ML VIAL SQ SCH ×2 (06:06→17:29)
[2019-06-13 06:54] LABS: Amphetamine Screen,Urine Negative ng/mL (Cutoff=1000); Barbiturate Screen,Urine Negative ng/mL (Cutoff=200)
[2019-06-13 06:57] LABS: Benzodiazepines Screen,Urine Positive ng/mL (Cutoff=300); Cannabinoid Screen,Urine Negative ng/mL (Cutoff = 50)
[2019-06-13 06:58] LABS: Cocaine Screen,Urine Negative ng/mL (Cutoff= 300); Opiate Screen,Urine Positive ng/mL (Cutoff=300); Phencyclidine Screen,Urine Negative ng/mL (Cutoff=25)
[2019-06-13 07:00] LABS: Magnesium 1.8 mg/dL (1.6-2.6)
[2019-06-13] MEDS ORDERED: Potassium Phosphate 44 MEQ in 0.9 % Sodium Chloride 250 ML IVPB ONE (13:00)
[2019-06-13 13:28] LABS: INR 1.3; Prothrombin Time 15.1 Seconds (9.4-12.1)
[2019-06-13] MEDS ORDERED: Perflutren Lipid Microsphere 1.3 ML in 0.9 % Sodium Chloride 8.7 ML IVP ONE (14:06)
[2019-06-13] MEDS ORDERED: Perflutren Lipid Microsphere 2 ML VIAL ONE (14:10)
[2019-06-13] MEDS ORDERED: E-Z-PAQUE (BARIUM SULF) SUSP 1 BOTTLE PO ONE (17:33)
[2019-06-13] MEDS: Ketorolac 15 MG/ML VIAL IVP PRN (19:40)
[2019-06-13 20:29] LABS: BUN/Creatinine Ratio 22 (6-26); Blood Urea Nitrogen 17 mg/dL (6-20); Calcium 8.9 mg/dL (8.6-10.3); Carbon Dioxide 32 mEq/L (23-29); Chloride 108 mEq/L (98-107); Glucose 93 mg/dL (70-105); Osmolality,Calculated 325 (280-300); Potassium 2.9 mEq/L (3.5-5.1); Sodium 157 mEq/L (136-145); eGFR For African Americans > 60 (> 60); eGFR For Non-African Americans > 60 (> 60)
[2019-06-14] MEDS: Piperacillin/Tazobactam 3.375 GM in 0.9 % Sodium Chloride Mini Bag 100 ML IVPB SCH ×3 (03:25→19:52)
[2019-06-14] MEDS: *HR* LORazepam 2 MG/ML VIAL IVP SCH ×3 (05:17→22:25)
[2019-06-14] MEDS: *HR* Heparin 5,000 UNIT/ML VIAL SQ SCH ×2 (05:18→17:36)
[2019-06-14] MEDS ORDERED: Potassium Phosphate 44 MEQ in 0.9 % Sodium Chloride 250 ML IVPB ONE (05:29)
[2019-06-14] MEDS ORDERED: 0.9 % Sodium Chloride 250 ML ONE (06:10)
[2019-06-14 09:16] LABS: Hematocrit 35.1 % (37.5-50.1); Hemoglobin 10.2 g/dL (12.9-16.9); Mean Corpuscular HGB Conc 29.1 g/dL (31.6-35.5); Mean Corpuscular Hemoglobin 25.4 pg (28.0-33.3); Mean Corpuscular Volume 87.3 fL (83.0-100.0); Mean Platelet Volume 9.7 fL (9.4-12.4); Platelet Count 386 K/mcL (140-400); Red Blood Count 4.02 M/mcL (4.19-5.50)
[2019-06-14 09:41] LABS: BUN/Creatinine Ratio 22 (6-26); Blood Urea Nitrogen 18 mg/dL (6-20); Calcium 8.6 mg/dL (8.6-10.3); Carbon Dioxide 35 mEq/L (23-29); Chloride 106 mEq/L (98-107); Glucose 91 mg/dL (70-105); Magnesium 2.1 mg/dL (1.6-2.6); Osmolality,Calculated 337 (280-300); Phosphorous 3.8 mg/dL (2.7-4.5); Potassium 2.8 mEq/L (3.5-5.1); Sodium 163 mEq/L (136-145); eGFR For African Americans > 60 (> 60); eGFR For Non-African Americans > 60 (> 60)
[2019-06-14] MEDS ORDERED: D5% in Water 1,000 ML IVC SCH ×2 (10:00→15:30)
[2019-06-14] MEDS: Ketorolac 15 MG/ML VIAL IVP PRN (12:24)
[2019-06-14 15:23] LABS: BUN/Creatinine Ratio 20 (6-26); Blood Urea Nitrogen 17 mg/dL (6-20); Calcium 8.6 mg/dL (8.6-10.3); Carbon Dioxide 39 mEq/L (23-29); Chloride 107 mEq/L (98-107); Glucose 93 mg/dL (70-105); Osmolality,Calculated 339 (280-300); Potassium 2.6 mEq/L (3.5-5.1); Sodium 164 mEq/L (136-145); Vancomycin,Trough 18 mcg/mL (5-10); eGFR For African Americans > 60 (> 60); eGFR For Non-African Americans > 60 (> 60)
[2019-06-14] MEDS ORDERED: Calcium Gluconate 1gm/50mL 1 GM/50 ML BAG IVPB PRN (16:11)
[2019-06-14] MEDS: Vancomycin 500 MG in 0.9 % Sodium Chloride Mini Bag 100 ML IVPB SCH (17:36)
[2019-06-14] MEDS: Pantoprazole 40 MG VIAL IVP SCH (17:36)
[2019-06-14 18:49] LABS: BUN/Creatinine Ratio 20 (6-26); Blood Urea Nitrogen 17 mg/dL (6-20); Calcium 8.5 mg/dL (8.6-10.3); Carbon Dioxide 40 mEq/L (23-29); Chloride 108 mEq/L (98-107); Glucose 107 mg/dL (70-105); Osmolality,Calculated 336 (280-300); Potassium 2.4 mEq/L (3.5-5.1); Sodium 162 mEq/L (136-145); eGFR For African Americans > 60 (> 60); eGFR For Non-African Americans > 60 (> 60)
[2019-06-14 20:49] LABS: BUN/Creatinine Ratio 20 (6-26); Blood Urea Nitrogen 16 mg/dL (6-20); Calcium 8.3 mg/dL (8.6-10.3); Carbon Dioxide 42 mEq/L (23-29); Chloride 106 mEq/L (98-107); Glucose 128 mg/dL (70-105); Osmolality,Calculated 339 (280-300); Potassium 2.4 mEq/L (3.5-5.1); Sodium 163 mEq/L (136-145); eGFR For African Americans > 60 (> 60); eGFR For Non-African Americans > 60 (> 60)
[2019-06-14 21:17] LABS: ABG Base Excess 17 mEq/L (-2 to 3); ABG HCO3 41 mEq/L (21-27); ABG Oxygen Saturation 96 % (95-98); ABG PCO2 46 mmHg (35-45); ABG PH 7.56 pH Units (7.32-7.45); ABG PO2 74 mmHg (85-104); ABG TCO2 42 mEq/L (20-26)
[2019-06-14] MEDS ORDERED: D5% in 0.45% NACL w KCl 20 MEQ/1,000 ML MLS IVC SCH (23:00)
[2019-06-15 00:48] LABS: BUN/Creatinine Ratio 19 (6-26); Blood Urea Nitrogen 15 mg/dL (6-20); Calcium 8.1 mg/dL (8.6-10.3); Carbon Dioxide 40 mEq/L (23-29); Chloride 109 mEq/L (98-107); Glucose 120 mg/dL (70-105); Osmolality,Calculated 324 (280-300); Potassium 2.3 mEq/L (3.5-5.1); Sodium 156 mEq/L (136-145); eGFR For African Americans > 60 (> 60); eGFR For Non-African Americans > 60 (> 60)
[2019-06-15] MEDS ORDERED: *HR* LORazepam 2 MG/ML VIAL IVP ONE (03:14)
[2019-06-15 03:57] LABS: VBG Ionized Calcium 1.05 mmol/L (1.15-1.35)
[2019-06-15] MEDS: Vancomycin 500 MG in 0.9 % Sodium Chloride Mini Bag 100 ML IVPB SCH ×2 (04:14→16:43)
[2019-06-15 04:29] LABS: BUN/Creatinine Ratio 19 (6-26); Blood Urea Nitrogen 14 mg/dL (6-20); Calcium 8.1 mg/dL (8.6-10.3); Carbon Dioxide 37 mEq/L (23-29); Chloride 109 mEq/L (98-107); Glucose 126 mg/dL (70-105); Magnesium 1.7 mg/dL (1.6-2.6); Osmolality,Calculated 324 (280-300); Phosphorous 1.8 mg/dL (2.7-4.5); Potassium 2.4 mEq/L (3.5-5.1); Sodium 156 mEq/L (136-145); eGFR For African Americans > 60 (> 60); eGFR For Non-African Americans > 60 (> 60)
[2019-06-15] MEDS: Pantoprazole 40 MG VIAL IVP SCH ×2 (05:10→16:45)
[2019-06-15] MEDS: *HR* Heparin 5,000 UNIT/ML VIAL SQ SCH ×2 (05:10→16:44)
[2019-06-15] MEDS: Piperacillin/Tazobactam 3.375 GM in 0.9 % Sodium Chloride Mini Bag 100 ML IVPB SCH ×3 (05:10→20:49)
[2019-06-15 05:35] LABS: Basophils % 0.5 %; Hematocrit 34.4 % (37.5-50.1); Immature Granulocytes % 0.4 % (0-4); Lymphocytes # 2.3 K/mcL (0.6-4.6); Lymphocytes % 28.5 %; Mean Corpuscular HGB Conc 29.1 g/dL (31.6-35.5); Mean Platelet Volume 9.7 fL (9.4-12.4); Monocytes # 0.9 K/mcL (0.0-1.3); Monocytes % 10.6 %; Neutrophils # 4.9 K/mcL (1.6-8.9); Platelet Count 335 K/mcL (140-400); Red Cell Distribution Width 17.6 % (11.5-14.5); White Blood Count 8.2 K/mcL (4.3-11.1)
[2019-06-15] MEDS ORDERED: Potassium Phosphate 44 MEQ in 0.9 % Sodium Chloride 250 ML IVPB ONE (06:15)
[2019-06-15] MEDS: *HR* LORazepam 2 MG/ML VIAL IVP SCH ×3 (06:37→20:58)
[2019-06-15 08:26] LABS: BUN/Creatinine Ratio 17 (6-26); Blood Urea Nitrogen 12 mg/dL (6-20); Calcium 7.7 mg/dL (8.6-10.3); Carbon Dioxide 40 mEq/L (23-29); Chloride 108 mEq/L (98-107); Glucose 137 mg/dL (70-105); Osmolality,Calculated 328 (280-300); Potassium 2.5 mEq/L (3.5-5.1); Sodium 158 mEq/L (136-145); eGFR For African Americans > 60 (> 60); eGFR For Non-African Americans > 60 (> 60)
[2019-06-15 12:44] LABS: Blood Urea Nitrogen 11 mg/dL (6-20); Calcium 7.8 mg/dL (8.6-10.3); Carbon Dioxide 37 mEq/L (23-29); Chloride 110 mEq/L (98-107); Glucose 109 mg/dL (70-105); Osmolality,Calculated 326 (280-300); Potassium 3.1 mEq/L (3.5-5.1); Sodium 158 mEq/L (136-145)
[2019-06-15] MEDS: Ketorolac 15 MG/ML VIAL IVP PRN (13:19)
[2019-06-15 13:49] LABS: BUN/Creatinine Ratio 15 (6-26); eGFR For African Americans > 60 (> 60); eGFR For Non-African Americans > 60 (> 60)
[2019-06-15 16:18] LABS: Folate > 22.3 ng/mL (3.0-16.0); Vitamin B12 828 pg/mL (250-1100)
[2019-06-15] MEDS: 0.45 % Sodium Chloride w/KCl 20 MEQ/1,000 ML MLS IVC SCH (16:30)
[2019-06-15 17:15] LABS: BUN/Creatinine Ratio 15 (6-26); Blood Urea Nitrogen 10 mg/dL (6-20); Calcium 7.7 mg/dL (8.6-10.3); Carbon Dioxide 36 mEq/L (23-29); Chloride 110 mEq/L (98-107); Glucose 86 mg/dL (70-105); Osmolality,Calculated 322 (280-300); Potassium 2.7 mEq/L (3.5-5.1); Sodium 157 mEq/L (136-145); eGFR For African Americans > 60 (> 60); eGFR For Non-African Americans > 60 (> 60)
[2019-06-15] MEDS ORDERED: Thiamine (B-1) 100 MG, Folic Acid 1 MG in 0.9 % Sodium Chloride 50 ML IVPB ONE (18:00)
[2019-06-16] MEDS: Potassium Chloride 20 MEQ in D5% in Water 1,000 ML IVC SCH ×2 (01:19→13:28)
[2019-06-16] MEDS: 0.45 % Sodium Chloride w/KCl 20 MEQ/1,000 ML MLS IVC SCH (01:32)
[2019-06-16] MEDS: Ketorolac 15 MG/ML VIAL IVP PRN ×2 (03:59→13:32)
[2019-06-16] MEDS: Vancomycin 500 MG in 0.9 % Sodium Chloride Mini Bag 100 ML IVPB SCH (03:59)
[2019-06-16] MEDS: Piperacillin/Tazobactam 3.375 GM in 0.9 % Sodium Chloride Mini Bag 100 ML IVPB SCH ×3 (04:00→21:11)
[2019-06-16 04:32] LABS: Hematocrit 34.3 % (37.5-50.1); Hemoglobin 10.2 g/dL (12.9-16.9); Mean Corpuscular HGB Conc 29.7 g/dL (31.6-35.5); Mean Corpuscular Hemoglobin 25.9 pg (28.0-33.3); Mean Corpuscular Volume 87.1 fL (83.0-100.0); Mean Platelet Volume 9.6 fL (9.4-12.4); Platelet Count 294 K/mcL (140-400); Red Blood Count 3.94 M/mcL (4.19-5.50); Red Cell Distribution Width 17.3 % (11.5-14.5)
[2019-06-16 04:51] LABS: BUN/Creatinine Ratio 13 (6-26); Blood Urea Nitrogen 9 mg/dL (6-20); Calcium 7.9 mg/dL (8.6-10.3); Carbon Dioxide 29 mEq/L (23-29); Chloride 110 mEq/L (98-107); Glucose 92 mg/dL (70-105); Osmolality,Calculated 308 (280-300); Sodium 150 mEq/L (136-145); eGFR For African Americans > 60 (> 60); eGFR For Non-African Americans > 60 (> 60)
[2019-06-16] MEDS: Pantoprazole 40 MG VIAL IVP SCH ×2 (05:12→17:24)
[2019-06-16] MEDS: *HR* Heparin 5,000 UNIT/ML VIAL SQ SCH ×2 (05:12→17:24)
[2019-06-16] MEDS: *HR* LORazepam 2 MG/ML VIAL IVP SCH ×3 (05:12→21:10)
[2019-06-16] MEDS ORDERED: Potassium Chloride 20 MEQ, Lidocaine 1% 2 ML in 0.9 % Sodium Chloride 250 ML IVPB ONE (05:50)
[2019-06-16 07:22] LABS: Magnesium 1.8 mg/dL (1.6-2.6); Phosphorous 2.1 mg/dL (2.7-4.5)
[2019-06-16 15:20] LABS: VBG Ionized Calcium 1.13 mmol/L (1.15-1.35)
[2019-06-16 15:38] LABS: BUN/Creatinine Ratio 12 (6-26); Blood Urea Nitrogen 8 mg/dL (6-20); Carbon Dioxide 28 mEq/L (23-29); Chloride 110 mEq/L (98-107); Glucose 93 mg/dL (70-105); Osmolality,Calculated 302 (280-300); Potassium 3.2 mEq/L (3.5-5.1); Sodium 147 mEq/L (136-145); eGFR For African Americans > 60 (> 60); eGFR For Non-African Americans > 60 (> 60)
[2019-06-16 16:01] LABS: Phosphorous 1.9 mg/dL (2.7-4.5)
[2019-06-16] MEDS: Potassium Chloride 40 MEQ/200 ML BAG IVPB PRN (17:37)
[2019-06-16] MEDS: Potassium Phosphate 44 MEQ in 0.9 % Sodium Chloride 250 ML IVPB PRN (17:42)
[2019-06-17 03:46] LABS: Basophils % 0.4 %; Eosinophils # 0.7 K/mcL (0.0-0.6); Eosinophils % 7.9 %; Hematocrit 35.8 % (37.5-50.1); Hemoglobin 10.6 g/dL (12.9-16.9); Immature Granulocytes % 0.3 % (0-4); Lymphocytes # 2.6 K/mcL (0.6-4.6); Lymphocytes % 28.3 %; Mean Corpuscular HGB Conc 29.6 g/dL (31.6-35.5); Mean Corpuscular Hemoglobin 25.7 pg (28.0-33.3); Mean Corpuscular Volume 86.7 fL (83.0-100.0); Mean Platelet Volume 9.8 fL (9.4-12.4); Monocytes # 0.6 K/mcL (0.0-1.3); Monocytes % 6.8 %; Neutrophils # 5.1 K/mcL (1.6-8.9); Nucleated Red Blood Cells 0.2 /100 WBC (0); Platelet Count 289 K/mcL (140-400); Red Blood Count 4.13 M/mcL (4.19-5.50); Red Cell Distribution Width 17.2 % (11.5-14.5); Segmented Neutrophils % 56.3 %
[2019-06-17 04:04] LABS: BUN/Creatinine Ratio 10 (6-26); Blood Urea Nitrogen 8 mg/dL (6-20); Calcium 8.1 mg/dL (8.6-10.3); Carbon Dioxide 26 mEq/L (23-29); Chloride 111 mEq/L (98-107); Glucose 84 mg/dL (70-105); Magnesium 2.1 mg/dL (1.6-2.6); Osmolality,Calculated 294 (280-300); Potassium 3.7 mEq/L (3.5-5.1); Sodium 143 mEq/L (136-145); eGFR For African Americans > 60 (> 60); eGFR For Non-African Americans > 60 (> 60)
[2019-06-17] MEDS: Potassium Chloride 20 MEQ in D5% in Water 1,000 ML IVC SCH ×4 (04:05→15:30)
[2019-06-17] MEDS: Potassium Chloride 40 MEQ/200 ML BAG IVPB PRN ×3 (05:13→15:06)
[2019-06-17] MEDS: Piperacillin/Tazobactam 3.375 GM in 0.9 % Sodium Chloride Mini Bag 100 ML IVPB SCH ×3 (05:26→20:32)
[2019-06-17] MEDS: Pantoprazole 40 MG VIAL IVP SCH ×2 (05:27→17:48)
[2019-06-17] MEDS: *HR* LORazepam 2 MG/ML VIAL IVP SCH ×3 (05:27→20:32)
[2019-06-17] MEDS: *HR* Heparin 5,000 UNIT/ML VIAL SQ SCH ×2 (05:54→18:04)
[2019-06-17] MEDS ORDERED: Potassium Phosphate 44 MEQ in 0.9 % Sodium Chloride 250 ML IVPB ONE (11:27)
[2019-06-17] MEDS ORDERED: Calcium Gluconate 2,000 MG in 0.9 % Sodium Chloride 100 ML IVPB ONE (11:31)
[2019-06-17 14:01] LABS: BUN/Creatinine Ratio 8 (6-26); Blood Urea Nitrogen 7 mg/dL (6-20); Calcium 8.2 mg/dL (8.6-10.3); Carbon Dioxide 25 mEq/L (23-29); Chloride 111 mEq/L (98-107); Glucose 107 mg/dL (70-105); Osmolality,Calculated 292 (280-300); Phosphorous 2.5 mg/dL (2.7-4.5); Potassium 3.9 mEq/L (3.5-5.1); Sodium 142 mEq/L (136-145); eGFR For African Americans > 60 (> 60); eGFR For Non-African Americans > 60 (> 60)
[2019-06-17] MEDS ORDERED: Ringers Solution, Lactated 1,000 ML IVC SCH (15:00)
[2019-06-18 02:55] LABS: BUN/Creatinine Ratio 7 (6-26); Blood Urea Nitrogen 6 mg/dL (6-20); Calcium 8.5 mg/dL (8.6-10.3); Carbon Dioxide 22 mEq/L (23-29); Chloride 112 mEq/L (98-107); Glucose 91 mg/dL (70-105); Osmolality,Calculated 287 (280-300); Phosphorous 3.9 mg/dL (2.7-4.5); Potassium 4.1 mEq/L (3.5-5.1); Sodium 140 mEq/L (136-145); eGFR For African Americans > 60 (> 60); eGFR For Non-African Americans > 60 (> 60)
[2019-06-18] MEDS: Potassium Chloride 20 MEQ in D5% in Water 1,000 ML IVC SCH ×2 (05:18→15:27)
[2019-06-18] MEDS: Piperacillin/Tazobactam 3.375 GM in 0.9 % Sodium Chloride Mini Bag 100 ML IVPB SCH ×3 (05:20→20:53)
[2019-06-18] MEDS: *HR* LORazepam 2 MG/ML VIAL IVP SCH ×3 (05:21→20:58)
[2019-06-18] MEDS: Pantoprazole 40 MG VIAL IVP SCH ×2 (05:21→16:47)
[2019-06-18] MEDS: *HR* Heparin 5,000 UNIT/ML VIAL SQ SCH ×2 (05:21→16:58)
[2019-06-18 05:25] LABS: VBG Ionized Calcium 1.24 mmol/L (1.15-1.35)
[2019-06-18 05:33] LABS: Hematocrit 37.5 % (37.5-50.1); Hemoglobin 11.3 g/dL (12.9-16.9); Mean Corpuscular HGB Conc 30.1 g/dL (31.6-35.5); Mean Corpuscular Hemoglobin 25.6 pg (28.0-33.3); Mean Platelet Volume 9.9 fL (9.4-12.4); Platelet Count 300 K/mcL (140-400); Red Blood Count 4.41 M/mcL (4.19-5.50); Red Cell Distribution Width 17.7 % (11.5-14.5); White Blood Count 8.5 K/mcL (4.3-11.1)
[2019-06-18 05:42] LABS: BUN/Creatinine Ratio 7 (6-26); Blood Urea Nitrogen 6 mg/dL (6-20); Calcium 8.6 mg/dL (8.6-10.3); Carbon Dioxide 23 mEq/L (23-29); Chloride 113 mEq/L (98-107); Glucose 82 mg/dL (70-105); Magnesium 2.2 mg/dL (1.6-2.6); Osmolality,Calculated 293 (280-300); Potassium 4.1 mEq/L (3.5-5.1); Sodium 143 mEq/L (136-145); eGFR For African Americans > 60 (> 60); eGFR For Non-African Americans > 60 (> 60)
[2019-06-18] MEDS: Vancomycin 500 MG in 0.9 % Sodium Chloride Mini Bag 100 ML IVPB SCH ×2 (07:57→18:18)
[2019-06-18] MEDS ORDERED: Thiamine (B-1) 100 MG in 0.9 % Sodium Chloride 50 ML IVPB ONE (11:22)
[2019-06-18] MEDS ORDERED: D10% in Water 500 ML IVC PRN (11:34)
[2019-06-18 12:34] LABS: BUN/Creatinine Ratio 6 (6-26); Blood Urea Nitrogen 6 mg/dL (6-20); Calcium 8.4 mg/dL (8.6-10.3); Carbon Dioxide 22 mEq/L (23-29); Chloride 110 mEq/L (98-107); Glucose 104 mg/dL (70-105); Osmolality,Calculated 286 (280-300); Phosphorous 3.4 mg/dL (2.7-4.5); Sodium 139 mEq/L (136-145); eGFR For African Americans > 60 (> 60); eGFR For Non-African Americans > 60 (> 60)
[2019-06-18] MEDS ORDERED: Clinimix E 5%-15% SOLUTION 2,000 ML with MVI, adult with vitamin K 10 ML IVC SCH (17:00)
[2019-06-18 17:15] LABS: BUN/Creatinine Ratio 6 (6-26); Blood Urea Nitrogen 6 mg/dL (6-20); Calcium 8.4 mg/dL (8.6-10.3); Carbon Dioxide 23 mEq/L (23-29); Chloride 108 mEq/L (98-107); Glucose 100 mg/dL (70-105); Magnesium 1.9 mg/dL (1.6-2.6); Osmolality,Calculated 282 (280-300); Potassium 3.9 mEq/L (3.5-5.1); Sodium 137 mEq/L (136-145); eGFR For African Americans > 60 (> 60); eGFR For Non-African Americans > 60 (> 60)
[2019-06-19 00:41] LABS: BUN/Creatinine Ratio 6 (6-26); Blood Urea Nitrogen 6 mg/dL (6-20); Calcium 8.4 mg/dL (8.6-10.3); Carbon Dioxide 20 mEq/L (23-29); Chloride 108 mEq/L (98-107); Glucose 105 mg/dL (70-105); Magnesium 2.3 mg/dL (1.6-2.6); Osmolality,Calculated 280 (280-300); Phosphorous 2.5 mg/dL (2.7-4.5); Potassium 4.1 mEq/L (3.5-5.1); Sodium 136 mEq/L (136-145); eGFR For African Americans > 60 (> 60); eGFR For Non-African Americans > 60 (> 60)
[2019-06-19] MEDS: Potassium Phosphate 44 MEQ in 0.9 % Sodium Chloride 250 ML IVPB PRN ×2 (01:22→21:13)
[2019-06-19] MEDS: Potassium Chloride 20 MEQ in D5% in Water 1,000 ML IVC SCH ×3 (01:42→21:14)
[2019-06-19] MEDS: *HR* LORazepam 2 MG/ML VIAL IVP SCH ×3 (05:43→21:14)
[2019-06-19] MEDS: Piperacillin/Tazobactam 3.375 GM in 0.9 % Sodium Chloride Mini Bag 100 ML IVPB SCH ×2 (05:43→13:01)
[2019-06-19] MEDS: Pantoprazole 40 MG VIAL IVP SCH ×2 (05:44→17:01)
[2019-06-19] MEDS: *HR* Heparin 5,000 UNIT/ML VIAL SQ SCH ×2 (05:44→17:02)
[2019-06-19 06:07] LABS: Hematocrit 38.4 % (37.5-50.1); Hemoglobin 11.6 g/dL (12.9-16.9); Mean Corpuscular HGB Conc 30.2 g/dL (31.6-35.5); Mean Corpuscular Hemoglobin 25.3 pg (28.0-33.3); Mean Corpuscular Volume 83.7 fL (83.0-100.0); Mean Platelet Volume 10.1 fL (9.4-12.4); Platelet Count 328 K/mcL (140-400); Red Blood Count 4.59 M/mcL (4.19-5.50); White Blood Count 12.5 K/mcL (4.3-11.1)
[2019-06-19 06:09] LABS: VBG Ionized Calcium 1.21 mmol/L (1.15-1.35)
[2019-06-19 06:30] LABS: BUN/Creatinine Ratio 6 (6-26); Blood Urea Nitrogen 6 mg/dL (6-20); Calcium 8.4 mg/dL (8.6-10.3); Carbon Dioxide 20 mEq/L (23-29); Chloride 107 mEq/L (98-107); Glucose 113 mg/dL (70-105); Magnesium 2.1 mg/dL (1.6-2.6); Osmolality,Calculated 282 (280-300); Phosphorous 4.9 mg/dL (2.7-4.5); Potassium 4.7 mEq/L (3.5-5.1); Sodium 137 mEq/L (136-145); eGFR For African Americans > 60 (> 60); eGFR For Non-African Americans > 60 (> 60)
[2019-06-19 10:41] LABS: BUN/Creatinine Ratio 7 (6-26); Blood Urea Nitrogen 6 mg/dL (6-20); Calcium 8.3 mg/dL (8.6-10.3); Carbon Dioxide 21 mEq/L (23-29); Chloride 106 mEq/L (98-107); Glucose 136 mg/dL (70-105); Magnesium 1.9 mg/dL (1.6-2.6); Osmolality,Calculated 282 (280-300); Phosphorous 4.2 mg/dL (2.7-4.5); Potassium 4.5 mEq/L (3.5-5.1); Sodium 136 mEq/L (136-145); eGFR For African Americans > 60 (> 60); eGFR For Non-African Americans > 60 (> 60)
[2019-06-19] MEDS ORDERED: *HR* HYDROmorphone (PF) 1 MG/ML SYRINGE IVP ONE (11:39)
[2019-06-19] MEDS ORDERED: metroNIDAZOLE 500 MG TABLET PO SCH (15:00)
[2019-06-19 15:06] LABS: BUN/Creatinine Ratio 7 (6-26); Blood Urea Nitrogen 6 mg/dL (6-20); Calcium 8.1 mg/dL (8.6-10.3); Carbon Dioxide 21 mEq/L (23-29); Chloride 108 mEq/L (98-107); Glucose 119 mg/dL (70-105); Magnesium 2.7 mg/dL (1.6-2.6); Osmolality,Calculated 281 (280-300); Phosphorous 3.3 mg/dL (2.7-4.5); Potassium 4.3 mEq/L (3.5-5.1); Sodium 136 mEq/L (136-145); eGFR For African Americans > 60 (> 60); eGFR For Non-African Americans > 60 (> 60)
[2019-06-19] MEDS ORDERED: Clinimix E 5%-15% SOLUTION 2,000 ML with MVI, adult with vitamin K 10 ML IVC SCH (17:00)
[2019-06-19] MEDS: Cefepime HCl 2,000 MG in 0.9 % Sodium Chloride Mini Bag 100 ML IVPB SCH (17:00)
[2019-06-19 20:24] LABS: BUN/Creatinine Ratio 8 (6-26); Blood Urea Nitrogen 7 mg/dL (6-20); Calcium 8.3 mg/dL (8.6-10.3); Carbon Dioxide 22 mEq/L (23-29); Chloride 107 mEq/L (98-107); Glucose 128 mg/dL (70-105); Magnesium 2.2 mg/dL (1.6-2.6); Osmolality,Calculated 282 (280-300); Phosphorous 2.8 mg/dL (2.7-4.5); Potassium 3.8 mEq/L (3.5-5.1); Sodium 136 mEq/L (136-145); eGFR For African Americans > 60 (> 60); eGFR For Non-African Americans > 60 (> 60)
[2019-06-19] MEDS: MetroNIDAZOLE 500 MG/100 ML 500 MG/100 ML BAG IVPB SCH (23:43)
[2019-06-20] MEDS: Pantoprazole 40 MG VIAL IVP SCH ×2 (05:20→17:04)
[2019-06-20] MEDS: Cefepime HCl 2,000 MG in 0.9 % Sodium Chloride Mini Bag 100 ML IVPB SCH ×2 (05:20→17:03)
[2019-06-20] MEDS: *HR* LORazepam 2 MG/ML VIAL IVP SCH ×3 (05:20→22:48)
[2019-06-20] MEDS: *HR* Heparin 5,000 UNIT/ML VIAL SQ SCH ×2 (05:21→17:18)
[2019-06-20 05:55] LABS: Hematocrit 35.6 % (37.5-50.1); Hemoglobin 10.8 g/dL (12.9-16.9); Mean Corpuscular HGB Conc 30.3 g/dL (31.6-35.5); Mean Corpuscular Hemoglobin 25.4 pg (28.0-33.3); Mean Corpuscular Volume 83.6 fL (83.0-100.0); Mean Platelet Volume 10.3 fL (9.4-12.4); Platelet Count 307 K/mcL (140-400); Red Blood Count 4.26 M/mcL (4.19-5.50); Red Cell Distribution Width 18.2 % (11.5-14.5); White Blood Count 12.4 K/mcL (4.3-11.1)
[2019-06-20 06:04] LABS: VBG Ionized Calcium 1.17 mmol/L (1.15-1.35)
[2019-06-20 06:17] LABS: BUN/Creatinine Ratio 10 (6-26); Blood Urea Nitrogen 9 mg/dL (6-20); Calcium 8.2 mg/dL (8.6-10.3); Carbon Dioxide 20 mEq/L (23-29); Chloride 107 mEq/L (98-107); Glucose 114 mg/dL (70-105); Magnesium 1.9 mg/dL (1.6-2.6); Osmolality,Calculated 278 (280-300); Phosphorous 4.4 mg/dL (2.7-4.5); Potassium 4.4 mEq/L (3.5-5.1); Sodium 134 mEq/L (136-145); eGFR For African Americans > 60 (> 60); eGFR For Non-African Americans > 60 (> 60)
[2019-06-20] MEDS: Potassium Chloride 20 MEQ in D5% in Water 1,000 ML IVC SCH ×2 (08:10→09:50)
[2019-06-20] MEDS: MetroNIDAZOLE 500 MG/100 ML 500 MG/100 ML BAG IVPB SCH ×2 (08:21→15:27)
[2019-06-20] MEDS: Ketorolac 15 MG/ML VIAL IVP PRN (09:51)
[2019-06-20] MEDS ORDERED: Clinimix E 5%-15% SOLUTION 2,000 ML with MVI, adult with vitamin K 10 ML IVC SCH (17:00)
[2019-06-21] MEDS: Potassium Chloride 20 MEQ in D5% in Water 1,000 ML IVC SCH (00:27)
[2019-06-21] MEDS: MetroNIDAZOLE 500 MG/100 ML 500 MG/100 ML BAG IVPB SCH ×4 (00:29→23:44)
[2019-06-21] MEDS: *HR* LORazepam 2 MG/ML VIAL IVP SCH ×3 (06:03→21:01)
[2019-06-21] MEDS: Pantoprazole 40 MG VIAL IVP SCH ×2 (06:03→17:02)
[2019-06-21] MEDS: Cefepime HCl 2,000 MG in 0.9 % Sodium Chloride Mini Bag 100 ML IVPB SCH ×2 (06:04→17:01)
[2019-06-21] MEDS: *HR* Heparin 5,000 UNIT/ML VIAL SQ SCH ×2 (06:05→17:02)
[2019-06-21 08:01] LABS: Basophils % 0.5 %; Eosinophils # 0.8 K/mcL (0.0-0.6); Eosinophils % 9.6 %; Hematocrit 31.8 % (37.5-50.1); Hemoglobin 9.7 g/dL (12.9-16.9); Immature Granulocytes % 0.7 % (0-4); Lymphocytes # 1.7 K/mcL (0.6-4.6); Mean Corpuscular HGB Conc 30.5 g/dL (31.6-35.5); Mean Corpuscular Volume 85.3 fL (83.0-100.0); Mean Platelet Volume 10.6 fL (9.4-12.4); Monocytes # 0.8 K/mcL (0.0-1.3); Monocytes % 9.1 %; Neutrophils # 4.9 K/mcL (1.6-8.9); Platelet Count 246 K/mcL (140-400); Red Blood Count 3.73 M/mcL (4.19-5.50); Red Cell Distribution Width 18.6 % (11.5-14.5); Segmented Neutrophils % 59.1 %; White Blood Count 8.3 K/mcL (4.3-11.1)
[2019-06-21 09:12] LABS: BUN/Creatinine Ratio 19 (6-26); Blood Urea Nitrogen 15 mg/dL (6-20); Calcium 8.6 mg/dL (8.6-10.3); Carbon Dioxide 24 mEq/L (23-29); Chloride 105 mEq/L (98-107); Glucose 76 mg/dL (70-105); Magnesium 1.7 mg/dL (1.6-2.6); Osmolality,Calculated 280 (280-300); Potassium 4.9 mEq/L (3.5-5.1); Sodium 135 mEq/L (136-145); eGFR For African Americans > 60 (> 60); eGFR For Non-African Americans > 60 (> 60)
[2019-06-21] MEDS ORDERED: Clinimix E 5%-15% SOLUTION 2,000 ML with MVI, adult with vitamin K 10 ML IVC SCH (17:00)
[2019-06-21] MEDS: Ketorolac 15 MG/ML VIAL IVP PRN (23:43)
[2019-06-22 05:27] LABS: BUN/Creatinine Ratio 24 (6-26); Blood Urea Nitrogen 19 mg/dL (6-20); Calcium 8.8 mg/dL (8.6-10.3); Carbon Dioxide 27 mEq/L (23-29); Chloride 105 mEq/L (98-107); Glucose 90 mg/dL (70-105); Magnesium 1.7 mg/dL (1.6-2.6); Osmolality,Calculated 290 (280-300); Phosphorous 2.7 mg/dL (2.7-4.5); Potassium 3.7 mEq/L (3.5-5.1); Sodium 139 mEq/L (136-145); eGFR For African Americans > 60 (> 60); eGFR For Non-African Americans > 60 (> 60)
[2019-06-22] MEDS: *HR* LORazepam 2 MG/ML VIAL IVP SCH ×3 (06:17→22:10)
[2019-06-22] MEDS: Pantoprazole 40 MG VIAL IVP SCH ×2 (06:17→17:36)
[2019-06-22] MEDS: Ketorolac 15 MG/ML VIAL IVP PRN ×3 (06:17→18:47)
[2019-06-22] MEDS: *HR* Heparin 5,000 UNIT/ML VIAL SQ SCH ×2 (06:18→18:47)
[2019-06-22] MEDS: Cefepime HCl 2,000 MG in 0.9 % Sodium Chloride Mini Bag 100 ML IVPB SCH ×2 (06:18→17:34)
[2019-06-22] MEDS: MetroNIDAZOLE 500 MG/100 ML 500 MG/100 ML BAG IVPB SCH ×3 (08:52→23:36)
[2019-06-22 13:59] LABS: Basophils % 0.5 %; Eosinophils # 0.5 K/mcL (0.0-0.6); Eosinophils % 6.1 %; Hemoglobin 10.2 g/dL (12.9-16.9); Immature Granulocytes % 0.5 % (0-4); Lymphocytes # 2.2 K/mcL (0.6-4.6); Lymphocytes % 27.1 %; Mean Corpuscular HGB Conc 30.9 g/dL (31.6-35.5); Mean Corpuscular Hemoglobin 26.2 pg (28.0-33.3); Mean Corpuscular Volume 84.6 fL (83.0-100.0); Mean Platelet Volume 10.6 fL (9.4-12.4); Monocytes # 0.8 K/mcL (0.0-1.3); Neutrophils # 4.5 K/mcL (1.6-8.9); Platelet Count 286 K/mcL (140-400); Red Cell Distribution Width 19.3 % (11.5-14.5); Segmented Neutrophils % 55.8 %; White Blood Count 8.1 K/mcL (4.3-11.1)
[2019-06-22] MEDS ORDERED: Clinimix E 5%-15% SOLUTION 2,000 ML with MVI, adult with vitamin K 10 ML, Trace Eleme... IVC SCH (17:00)
[2019-06-22] MEDS: Orphenadrine 60 MG/2 ML VIAL IVP SCH (17:36)
[2019-06-23] MEDS: *HR* Heparin 5,000 UNIT/ML VIAL SQ SCH ×2 (05:37→17:29)
[2019-06-23] MEDS: Orphenadrine 60 MG/2 ML VIAL IVP SCH ×2 (05:37→17:29)
[2019-06-23] MEDS: *HR* LORazepam 2 MG/ML VIAL IVP SCH ×3 (05:37→21:33)
[2019-06-23] MEDS: Pantoprazole 40 MG VIAL IVP SCH ×2 (05:37→17:30)
[2019-06-23] MEDS: Cefepime HCl 2,000 MG in 0.9 % Sodium Chloride Mini Bag 100 ML IVPB SCH ×2 (05:38→17:28)
[2019-06-23 06:57] LABS: Basophils # 0.1 K/mcL (0.0-0.2); Basophils % 0.6 %; Eosinophils # 0.5 K/mcL (0.0-0.6); Eosinophils % 6.3 %; Hematocrit 31.8 % (37.5-50.1); Hemoglobin 10.1 g/dL (12.9-16.9); Immature Granulocytes % 0.2 % (0-4); Lymphocytes # 2.2 K/mcL (0.6-4.6); Mean Corpuscular HGB Conc 31.8 g/dL (31.6-35.5); Mean Corpuscular Hemoglobin 26.4 pg (28.0-33.3); Mean Platelet Volume 10.9 fL (9.4-12.4); Monocytes % 11.1 %; Neutrophils # 4.9 K/mcL (1.6-8.9); Platelet Count 294 K/mcL (140-400); Red Blood Count 3.82 M/mcL (4.19-5.50); Red Cell Distribution Width 19.3 % (11.5-14.5); Segmented Neutrophils % 56.8 %; White Blood Count 8.6 K/mcL (4.3-11.1)
[2019-06-23 06:58] LABS: Mean Corpuscular Volume 83.2 fL (83.0-100.0)
[2019-06-23 07:15] LABS: Albumin 3.1 g/dL (3.5-5.7); BUN/Creatinine Ratio 38 (6-26); Blood Urea Nitrogen 28 mg/dL (6-20); Calcium 8.7 mg/dL (8.6-10.3); Carbon Dioxide 27 mEq/L (23-29); Chloride 106 mEq/L (98-107); Glucose 95 mg/dL (70-105); Osmolality,Calculated 291 (280-300); Potassium 3.6 mEq/L (3.5-5.1); Sodium 138 mEq/L (136-145); Triglycerides 105 mg/dL (< 150); eGFR For African Americans > 60 (> 60); eGFR For Non-African Americans > 60 (> 60)
[2019-06-23] MEDS: 0.9 % Sodium Chloride 1,000 ML IVC SCH (08:40)
[2019-06-23] MEDS: MetroNIDAZOLE 500 MG/100 ML 500 MG/100 ML BAG IVPB SCH ×3 (08:41→23:52)
[2019-06-23 11:19] LABS: Magnesium 1.7 mg/dL (1.6-2.6); Phosphorous 2.8 mg/dL (2.7-4.5)
[2019-06-23] MEDS: Ketorolac 15 MG/ML VIAL IVP PRN ×2 (13:53→23:52)
[2019-06-23] MEDS ORDERED: Clinimix E 5%-15% SOLUTION 2,000 ML with MVI, adult with vitamin K 10 ML, Trace Eleme... IVC SCH (17:00)
[2019-06-23] MEDS ORDERED: Dextrose Gel 15 GM/37.5 ML TUBE PO PRN ×2 (20:38)
[2019-06-23] MEDS ORDERED: *HR* Dextrose 50 % in Water (Syg) 50 ML SYRINGE IVP PRN (20:38)
[2019-06-23] MEDS ORDERED: D5% in Water 1,000 ML IVC PRN (20:38)
[2019-06-24 04:10] LABS: BUN/Creatinine Ratio 46 (6-26); Blood Urea Nitrogen 30 mg/dL (6-20); Calcium 8.4 mg/dL (8.6-10.3); Carbon Dioxide 27 mEq/L (23-29); Chloride 109 mEq/L (98-107); Glucose 72 mg/dL (70-105); Magnesium 1.6 mg/dL (1.6-2.6); Osmolality,Calculated 297 (280-300); Phosphorous 2.5 mg/dL (2.7-4.5); Potassium 3.5 mEq/L (3.5-5.1); Sodium 141 mEq/L (136-145); eGFR For African Americans > 60 (> 60); eGFR For Non-African Americans > 60 (> 60)
[2019-06-24] MEDS: 0.9 % Sodium Chloride 1,000 ML IVC SCH (05:43)
[2019-06-24] MEDS: Orphenadrine 60 MG/2 ML VIAL IVP SCH ×2 (05:43→17:17)
[2019-06-24] MEDS: *HR* Heparin 5,000 UNIT/ML VIAL SQ SCH ×2 (05:44→17:17)
[2019-06-24] MEDS: *HR* LORazepam 2 MG/ML VIAL IVP SCH ×3 (05:44→21:35)
[2019-06-24] MEDS: Cefepime HCl 2,000 MG in 0.9 % Sodium Chloride Mini Bag 100 ML IVPB SCH ×2 (05:44→17:14)
[2019-06-24] MEDS: Pantoprazole 40 MG VIAL IVP SCH ×2 (05:44→17:17)
[2019-06-24] MEDS: MetroNIDAZOLE 500 MG/100 ML 500 MG/100 ML BAG IVPB SCH ×2 (08:57→17:18)
[2019-06-24] MEDS ORDERED: Potassium Phosphate 44 MEQ in 0.9 % Sodium Chloride 250 ML IVPB ONE (10:27)
[2019-06-24] MEDS ORDERED: Clinimix E 5%-15% SOLUTION 2,000 ML with MVI, adult with vitamin K 10 ML, Trace Eleme... IVC SCH (17:00)
[2019-06-25] MEDS: MetroNIDAZOLE 500 MG/100 ML 500 MG/100 ML BAG IVPB SCH ×3 (00:34→18:59)
[2019-06-25] MEDS: 0.9 % Sodium Chloride 1,000 ML IVC SCH ×3 (00:35→18:57)
[2019-06-25 04:42] LABS: Basophils % 0.5 %; Eosinophils # 0.1 K/mcL (0.0-0.6); Eosinophils % 1.1 %; Hematocrit 28.2 % (37.5-50.1); Hemoglobin 8.6 g/dL (12.9-16.9); Immature Granulocytes % 0.2 % (0-4); Lymphocytes # 2.2 K/mcL (0.6-4.6); Lymphocytes % 25.1 %; Mean Corpuscular HGB Conc 30.5 g/dL (31.6-35.5); Mean Corpuscular Hemoglobin 26.5 pg (28.0-33.3); Mean Corpuscular Volume 86.8 fL (83.0-100.0); Mean Platelet Volume 10.3 fL (9.4-12.4); Monocytes # 1.2 K/mcL (0.0-1.3); Monocytes % 13.2 %; Neutrophils # 5.2 K/mcL (1.6-8.9); Platelet Count 231 K/mcL (140-400); Red Blood Count 3.25 M/mcL (4.19-5.50); Red Cell Distribution Width 19.9 % (11.5-14.5); Segmented Neutrophils % 59.9 %; White Blood Count 8.7 K/mcL (4.3-11.1)
[2019-06-25 04:49] LABS: INR 1.3; Prothrombin Time 14.8 Seconds (9.4-12.1)
[2019-06-25 05:05] LABS: BUN/Creatinine Ratio 49 (6-26); Blood Urea Nitrogen 21 mg/dL (6-20); Carbon Dioxide 23 mEq/L (23-29); Chloride 110 mEq/L (98-107); Glucose 75 mg/dL (70-105); Magnesium 1.8 mg/dL (1.6-2.6); Osmolality,Calculated 288 (280-300); Phosphorous 2.6 mg/dL (2.7-4.5); Potassium 3.8 mEq/L (3.5-5.1); Sodium 138 mEq/L (136-145); eGFR For African Americans > 60 (> 60); eGFR For Non-African Americans > 60 (> 60)
[2019-06-25] MEDS: Cefepime HCl 2,000 MG in 0.9 % Sodium Chloride Mini Bag 100 ML IVPB SCH (06:10)
[2019-06-25] MEDS: *HR* LORazepam 2 MG/ML VIAL IVP SCH ×2 (06:11→22:25)
[2019-06-25] MEDS: *HR* Heparin 5,000 UNIT/ML VIAL SQ SCH ×2 (06:11→18:58)
[2019-06-25] MEDS: Orphenadrine 60 MG/2 ML VIAL IVP SCH ×2 (06:11→18:59)
[2019-06-25] MEDS: Pantoprazole 40 MG VIAL IVP SCH ×2 (06:11→18:59)
[2019-06-25] MEDS ORDERED: cefOXitin 1,000 MG, 0.9 % Sodium Chloride 1,000 ML IR ONE (11:00)
[2019-06-25] MEDS ORDERED: cefOXitin 1,000 MG, Sodium Chloride IRRigation 1,000 ML IR ONE ×2 (11:00→16:44)
[2019-06-25] MEDS ORDERED: *HR* Midazolam HCl 2 MG/2 ML VIAL IVP PRN (11:23)
[2019-06-25] MEDS ORDERED: *HR* HYDROmorphone (PF) 1 MG/ML SYRINGE IVP PRN ×2 (11:23→16:44)
[2019-06-25] MEDS ORDERED: *HR* Meperidine 25 MG/ML SYRINGE IVP PRN (11:23)
[2019-06-25] MEDS ORDERED: *HR* FentaNYL (PF) 100 MCG/2 ML VIAL IVP PRN ×2 (11:23→16:44)
[2019-06-25] MEDS ORDERED: *HR* Promethazine 25 MG/ML VIAL IVP PRN (11:23)
[2019-06-25] MEDS ORDERED: Acetaminophen IV 500 MG/50 ML INFUS..BTL IVPB ONE (11:27)
[2019-06-25] MEDS ORDERED: Ringers Solution, Lactated 1,000 ML IVC SCH ×2 (11:30→16:44)
[2019-06-25] MEDS ORDERED: *HR* Midazolam HCl 2 MG/2 ML VIAL ONE (14:00)
[2019-06-25] MEDS ORDERED: Propofol 500 MG/50 ML INFUS..BTL ONE (14:01)
[2019-06-25] MEDS ORDERED: *HR* FentaNYL (PF) 100 MCG/2 ML VIAL ONE (14:02)
[2019-06-25] MEDS ORDERED: Lidocaine -MPF 2% 2 ML VIAL ONE (14:04)
[2019-06-25] MEDS ORDERED: *HR* Succinylcholine 200 MG/10 ML VIAL IVP ONE (14:06)
[2019-06-25] MEDS ORDERED: *HR* Rocuronium Bromide 50 MG/5 ML VIAL ONE (14:07)
[2019-06-25] MEDS ORDERED: Lidocaine HCL 4 ML Topical Solution (Laryng-O-Jet Kit Sterile Pak) TP ONE (14:11)
[2019-06-25] MEDS ORDERED: Ondansetron 4 MG/2 ML VIAL ONE (15:06)
[2019-06-25] MEDS ORDERED: Dexamethasone 4 MG/ML VIAL ONE (15:06)
[2019-06-25] MEDS ORDERED: EPHEDrine 50 MG/ML VIAL ONE (15:11)
[2019-06-25] MEDS ORDERED: Bupivacaine/EPI 1:200k 0.5%PF 30 ML VIAL ONE (15:29)
[2019-06-25] MEDS ORDERED: Neostigmine Methylsulfate 3 MG/3 ML SYRINGE ONE (15:30)
[2019-06-25] MEDS ORDERED: D5% in Water 1,000 ML IVC PRN (16:44)
[2019-06-25] MEDS ORDERED: Ondansetron 4 MG/2 ML VIAL IVP PRN (16:44)
[2019-06-25] MEDS ORDERED: Clinimix E 5%-15% SOLUTION 2,000 ML with MVI, adult with vitamin K 10 ML, Trace Eleme... IVC SCH (16:44)
[2019-06-25] MEDS ORDERED: Dextrose Gel 15 GM/37.5 ML TUBE PO PRN ×2 (16:44)
[2019-06-25] MEDS ORDERED: Naloxone 0.4 MG/ML INJ IVP PRN (16:44)
[2019-06-25] MEDS ORDERED: D10% in Water 500 ML IVC PRN (16:44)
[2019-06-25] MEDS ORDERED: *HR* Dextrose 50 % in Water (Syg) 50 ML SYRINGE IVP PRN (16:44)
[2019-06-25] MEDS ORDERED: Clinimix E 5%-15% SOLUTION 2,000 ML with MVI, adult with vitamin K 10 ML IVC SCH (17:00)
[2019-06-25] MEDS ORDERED: Clinimix E 5%-15% SOLUTION 2,000 ML with MVI, adult with vitamin K 10 ML, Potassium P... IVC SCH ×2 (17:00)
[2019-06-25] MEDS: Cefepime HCl 2,000 MG in Water for inj. (sterile) 20 ML IVP SCH (18:58)
[2019-06-26] MEDS: MetroNIDAZOLE 500 MG/100 ML 500 MG/100 ML BAG IVPB SCH ×5 (01:07→23:33)
[2019-06-26] MEDS: Orphenadrine 60 MG/2 ML VIAL IVP SCH ×2 (03:02→17:51)
[2019-06-26 04:05] LABS: Basophils % 0.2 %; Hematocrit 27.1 % (37.5-50.1); Hemoglobin 8.3 g/dL (12.9-16.9); Immature Granulocytes % 0.4 % (0-4); Lymphocytes # 1.7 K/mcL (0.6-4.6); Lymphocytes % 15.5 %; Mean Corpuscular HGB Conc 30.6 g/dL (31.6-35.5); Mean Corpuscular Hemoglobin 26.3 pg (28.0-33.3); Monocytes # 1.1 K/mcL (0.0-1.3); Platelet Count 247 K/mcL (140-400); Red Blood Count 3.15 M/mcL (4.19-5.50); Red Cell Distribution Width 19.9 % (11.5-14.5); Segmented Neutrophils % 73.9 %; White Blood Count 10.7 K/mcL (4.3-11.1)
[2019-06-26 04:25] LABS: BUN/Creatinine Ratio 40 (6-26); Blood Urea Nitrogen 17 mg/dL (6-20); Calcium 8.1 mg/dL (8.6-10.3); Carbon Dioxide 24 mEq/L (23-29); Chloride 108 mEq/L (98-107); Glucose 122 mg/dL (70-105); Magnesium 1.5 mg/dL (1.6-2.6); Osmolality,Calculated 283 (280-300); Phosphorous 2.3 mg/dL (2.7-4.5); Potassium 3.6 mEq/L (3.5-5.1); Sodium 135 mEq/L (136-145); eGFR For African Americans > 60 (> 60); eGFR For Non-African Americans > 60 (> 60)
[2019-06-26] MEDS: *HR* LORazepam 2 MG/ML VIAL IVP SCH ×4 (06:21→23:32)
[2019-06-26] MEDS: *HR* Heparin 5,000 UNIT/ML VIAL SQ SCH ×2 (06:21→17:54)
[2019-06-26] MEDS: Pantoprazole 40 MG VIAL IVP SCH ×2 (06:21→17:51)
[2019-06-26] MEDS: Cefepime HCl 2,000 MG in Water for inj. (sterile) 20 ML IVP SCH ×2 (06:22→17:51)
[2019-06-26] MEDS: 0.9 % Sodium Chloride 1,000 ML IVC SCH ×2 (07:08→13:22)
[2019-06-26] MEDS ORDERED: Clinimix E 5%-15% SOLUTION 2,000 ML with MVI, adult with vitamin K 10 ML, Trace Eleme... IVC SCH (17:00)
[2019-06-27 05:21] LABS: Basophils # 0.1 K/mcL (0.0-0.2); Basophils % 0.6 %; Eosinophils # 0.1 K/mcL (0.0-0.6); Hematocrit 28.8 % (37.5-50.1); Hemoglobin 9.1 g/dL (12.9-16.9); Immature Granulocytes % 0.3 % (0-4); Lymphocytes # 2.2 K/mcL (0.6-4.6); Mean Corpuscular HGB Conc 31.6 g/dL (31.6-35.5); Mean Corpuscular Hemoglobin 26.7 pg (28.0-33.3); Mean Corpuscular Volume 84.5 fL (83.0-100.0); Mean Platelet Volume 10.6 fL (9.4-12.4); Monocytes % 11.4 %; Neutrophils # 5.4 K/mcL (1.6-8.9); Platelet Count 257 K/mcL (140-400); Red Blood Count 3.41 M/mcL (4.19-5.50); Red Cell Distribution Width 20.4 % (11.5-14.5); Segmented Neutrophils % 61.7 %; White Blood Count 8.7 K/mcL (4.3-11.1)
[2019-06-27 05:29] LABS: BUN/Creatinine Ratio 40 (6-26); Blood Urea Nitrogen 17 mg/dL (6-20); Calcium 8.1 mg/dL (8.6-10.3); Carbon Dioxide 28 mEq/L (23-29); Chloride 104 mEq/L (98-107); Glucose 90 mg/dL (70-105); Magnesium 1.6 mg/dL (1.6-2.6); Osmolality,Calculated 289 (280-300); Phosphorous 2.7 mg/dL (2.7-4.5); Potassium 3.5 mEq/L (3.5-5.1); Sodium 139 mEq/L (136-145); eGFR For African Americans > 60 (> 60); eGFR For Non-African Americans > 60 (> 60)
[2019-06-27] MEDS: Orphenadrine 60 MG/2 ML VIAL IVP SCH ×2 (06:25→17:03)
[2019-06-27] MEDS: *HR* LORazepam 2 MG/ML VIAL IVP SCH ×3 (06:25→23:01)
[2019-06-27] MEDS: Cefepime HCl 2,000 MG in Water for inj. (sterile) 20 ML IVP SCH ×2 (06:26→16:57)
[2019-06-27] MEDS: Pantoprazole 40 MG VIAL IVP SCH ×2 (06:26→17:01)
[2019-06-27] MEDS: *HR* Heparin 5,000 UNIT/ML VIAL SQ SCH ×2 (06:29→17:08)
[2019-06-27] MEDS: MetroNIDAZOLE 500 MG/100 ML 500 MG/100 ML BAG IVPB SCH ×3 (09:25→23:01)
[2019-06-27] MEDS: Gabapentin 400 MG CAPSULE PO SCH ×3 (12:40→23:01)
[2019-06-27] MEDS: Baclofen 10 MG TABLET PO SCH ×3 (12:40→23:01)
[2019-06-27] MEDS ORDERED: Clinimix E 5%-15% SOLUTION 2,000 ML with MVI, adult with vitamin K 10 ML, Trace Eleme... IVC SCH (17:00)
[2019-06-28 02:46] LABS: Hematocrit 30.9 % (37.5-50.1); Hemoglobin 9.8 g/dL (12.9-16.9); Mean Corpuscular HGB Conc 31.7 g/dL (31.6-35.5); Mean Corpuscular Hemoglobin 26.8 pg (28.0-33.3); Mean Corpuscular Volume 84.7 fL (83.0-100.0); Mean Platelet Volume 10.2 fL (9.4-12.4); Platelet Count 249 K/mcL (140-400); Red Blood Count 3.65 M/mcL (4.19-5.50); Red Cell Distribution Width 20.9 % (11.5-14.5); White Blood Count 7.5 K/mcL (4.3-11.1)
[2019-06-28 03:04] LABS: BUN/Creatinine Ratio 40 (6-26); Blood Urea Nitrogen 17 mg/dL (6-20); Calcium 8.4 mg/dL (8.6-10.3); Carbon Dioxide 26 mEq/L (23-29); Chloride 111 mEq/L (98-107); Glucose 100 mg/dL (70-105); Magnesium 1.7 mg/dL (1.6-2.6); Osmolality,Calculated 296 (280-300); Potassium 3.8 mEq/L (3.5-5.1); Sodium 142 mEq/L (136-145); eGFR For African Americans > 60 (> 60); eGFR For Non-African Americans > 60 (> 60)
[2019-06-28] MEDS: Gabapentin 400 MG CAPSULE PO SCH ×4 (06:13→23:00)
[2019-06-28] MEDS: Baclofen 10 MG TABLET PO SCH ×4 (06:13→23:00)
[2019-06-28] MEDS: *HR* Heparin 5,000 UNIT/ML VIAL SQ SCH ×2 (06:14→18:03)
[2019-06-28] MEDS: Orphenadrine 60 MG/2 ML VIAL IVP SCH (06:14)
[2019-06-28] MEDS: Cefepime HCl 2,000 MG in Water for inj. (sterile) 20 ML IVP SCH ×2 (06:15→18:04)
[2019-06-28] MEDS: Pantoprazole 40 MG VIAL IVP SCH ×2 (06:15→18:03)
[2019-06-28] MEDS: *HR* LORazepam 2 MG/ML VIAL IVP SCH ×3 (06:15→21:22)
[2019-06-28] MEDS: MetroNIDAZOLE 500 MG/100 ML 500 MG/100 ML BAG IVPB SCH ×2 (10:43→18:03)
[2019-06-28] MEDS ORDERED: Clinimix E 5%-15% SOLUTION 2,000 ML with MVI, adult with vitamin K 10 ML, Trace Eleme... IVC SCH (17:00)
[2019-06-29] MEDS: MetroNIDAZOLE 500 MG/100 ML 500 MG/100 ML BAG IVPB SCH ×4 (00:05→23:47)
[2019-06-29 00:50] LABS: Hematocrit 28.3 % (37.5-50.1); Hemoglobin 8.5 g/dL (12.9-16.9); Mean Corpuscular Hemoglobin 26.9 pg (28.0-33.3); Mean Corpuscular Volume 89.6 fL (83.0-100.0); Mean Platelet Volume 10.4 fL (9.4-12.4); Platelet Count 219 K/mcL (140-400); Red Blood Count 3.16 M/mcL (4.19-5.50); White Blood Count 8.8 K/mcL (4.3-11.1)
[2019-06-29 01:08] LABS: Magnesium 1.4 mg/dL (1.6-2.6); Phosphorous 2.4 mg/dL (2.7-4.5)
[2019-06-29 01:09] LABS: BUN/Creatinine Ratio 38 (6-26); Blood Urea Nitrogen 17 mg/dL (6-20); Carbon Dioxide 25 mEq/L (23-29); Chloride 108 mEq/L (98-107); Glucose 106 mg/dL (70-105); Osmolality,Calculated 286 (280-300); Potassium 3.5 mEq/L (3.5-5.1); Sodium 137 mEq/L (136-145); eGFR For African Americans > 60 (> 60); eGFR For Non-African Americans > 60 (> 60)
[2019-06-29] MEDS: Gabapentin 400 MG CAPSULE PO SCH ×4 (05:16→23:47)
[2019-06-29] MEDS: Baclofen 10 MG TABLET PO SCH ×4 (05:17→23:47)
[2019-06-29] MEDS: Cefepime HCl 2,000 MG in Water for inj. (sterile) 20 ML IVP SCH ×2 (06:01→17:29)
[2019-06-29] MEDS: *HR* LORazepam 2 MG/ML VIAL IVP SCH (06:01)
[2019-06-29] MEDS: Pantoprazole 40 MG VIAL IVP SCH (06:01)
[2019-06-29] MEDS: *HR* Heparin 5,000 UNIT/ML VIAL SQ SCH ×2 (06:02→17:29)
[2019-06-29] MEDS ORDERED: Clinimix E 5%-15% SOLUTION 2,000 ML with MVI, adult with vitamin K 10 ML, Trace Eleme... IVC SCH (09:59)
[2019-06-29] MEDS: *HR* LORazepam 1 MG TABLET PO SCH (21:44)
[2019-06-30 06:33] LABS: Hematocrit 30.7 % (37.5-50.1); Hemoglobin 9.7 g/dL (12.9-16.9); Mean Corpuscular HGB Conc 31.6 g/dL (31.6-35.5); Mean Corpuscular Hemoglobin 27.2 pg (28.0-33.3); Mean Platelet Volume 10.8 fL (9.4-12.4); Platelet Count 227 K/mcL (140-400); Red Blood Count 3.57 M/mcL (4.19-5.50); Red Cell Distribution Width 21.4 % (11.5-14.5); White Blood Count 7.7 K/mcL (4.3-11.1)
[2019-06-30] MEDS: *HR* Heparin 5,000 UNIT/ML VIAL SQ SCH (06:36)
[2019-06-30] MEDS: MetroNIDAZOLE 500 MG/100 ML 500 MG/100 ML BAG IVPB SCH (06:36)
[2019-06-30] MEDS: Baclofen 10 MG TABLET PO SCH (06:37)
[2019-06-30] MEDS: Cefepime HCl 2,000 MG in Water for inj. (sterile) 20 ML IVP SCH (06:37)
[2019-06-30] MEDS: Gabapentin 400 MG CAPSULE PO SCH (06:37)
[2019-06-30 06:55] LABS: Magnesium 1.8 mg/dL (1.6-2.6); Phosphorous 3.3 mg/dL (2.7-4.5)
[2019-06-30 06:57] LABS: BUN/Creatinine Ratio 37 (6-26); Blood Urea Nitrogen 19 mg/dL (6-20); Calcium 8.5 mg/dL (8.6-10.3); Carbon Dioxide 29 mEq/L (23-29); Chloride 103 mEq/L (98-107); Glucose 94 mg/dL (70-105); Osmolality,Calculated 290 (280-300); Potassium 3.6 mEq/L (3.5-5.1); Sodium 139 mEq/L (136-145); eGFR For African Americans > 60 (> 60); eGFR For Non-African Americans > 60 (> 60)
[2019-06-30] MEDS ORDERED: Mirtazapine 15 MG TABLET ONE (14:46)
[2019-06-30] MEDS: *HR* LORazepam 1 MG TABLET PO SCH (20:50)
[2019-07-01] MEDS: Baclofen 10 MG TABLET PO SCH ×6 (00:24→23:29)
[2019-07-01] MEDS: Gabapentin 400 MG CAPSULE PO SCH ×6 (00:24→23:30)
[2019-07-01] MEDS: MetroNIDAZOLE 500 MG/100 ML 500 MG/100 ML BAG IVPB SCH ×5 (00:27→23:30)
[2019-07-01 05:28] LABS: BUN/Creatinine Ratio 27 (6-26); Blood Urea Nitrogen 17 mg/dL (6-20); Carbon Dioxide 24 mEq/L (23-29); Chloride 105 mEq/L (98-107); Glucose 104 mg/dL (70-105); Magnesium 1.4 mg/dL (1.6-2.6); Osmolality,Calculated 282 (280-300); Phosphorous 2.3 mg/dL (2.7-4.5); Potassium 3.9 mEq/L (3.5-5.1); Sodium 135 mEq/L (136-145); eGFR For African Americans > 60 (> 60); eGFR For Non-African Americans > 60 (> 60)
[2019-07-01] MEDS: *HR* Heparin 5,000 UNIT/ML VIAL SQ SCH ×3 (06:10→17:23)
[2019-07-01] MEDS: Cefepime HCl 2,000 MG in Water for inj. (sterile) 20 ML IVP SCH ×3 (06:10→17:22)
[2019-07-01] MEDS: *HR* LORazepam 1 MG TABLET PO SCH ×3 (06:36→20:19)
[2019-07-01] MEDS ORDERED: Potassium Phosphate 44 MEQ in 0.9 % Sodium Chloride 250 ML IVPB ONE (07:43)
[2019-07-01] MEDS ORDERED: Acetaminophen 325 MG TABLET PO PRN (09:12)
[2019-07-01] MEDS: Mirtazapine 15 MG TABLET PO SCH (20:19)
[2019-07-02 04:22] LABS: C-Reactive Protein 112 mg/L (Less than 10)
[2019-07-02] MEDS: Cefepime HCl 2,000 MG in Water for inj. (sterile) 20 ML IVP SCH ×2 (06:13→17:28)
[2019-07-02] MEDS: Gabapentin 400 MG CAPSULE PO SCH ×4 (06:14→23:08)
[2019-07-02] MEDS: Baclofen 10 MG TABLET PO SCH ×4 (06:14→23:09)
[2019-07-02] MEDS: *HR* Heparin 5,000 UNIT/ML VIAL SQ SCH ×2 (06:14→17:28)
[2019-07-02 07:05] LABS: Alanine Aminotransferase 7 Units/L (7-52); Albumin 2.9 g/dL (3.5-5.7); Alkaline Phosphatase 60 Units/L (34-104); Aspartate Amino Transferase 18 Units/L (13-39); BUN/Creatinine Ratio 23 (6-26); Bilirubin,Total 0.3 mg/dL (0.3-1.0); Blood Urea Nitrogen 15 mg/dL (6-20); Calcium 8.1 mg/dL (8.6-10.3); Carbon Dioxide 22 mEq/L (23-29); Chloride 102 mEq/L (98-107); Globulin 2.9 g/dL (2.4-3.5); Glucose 100 mg/dL (70-105); Magnesium 1.7 mg/dL (1.6-2.6); Osmolality,Calculated 281 (280-300); Phosphorous 2.7 mg/dL (2.7-4.5); Potassium 4.3 mEq/L (3.5-5.1); Sodium 135 mEq/L (136-145); Total Protein 5.8 g/dL (6.4-8.9); eGFR For African Americans > 60 (> 60); eGFR For Non-African Americans > 60 (> 60)
[2019-07-02] MEDS: *HR* LORazepam 1 MG TABLET PO SCH (09:38)
[2019-07-02] MEDS: MetroNIDAZOLE 500 MG/100 ML 500 MG/100 ML BAG IVPB SCH (09:39)
[2019-07-02] MEDS: metroNIDAZOLE 500 MG TABLET PO SCH ×2 (17:27→20:31)
[2019-07-02] MEDS: *HR* LORazepam 0.5 MG TABLET PO SCH (20:31)
[2019-07-02] MEDS: Mirtazapine 15 MG TABLET PO SCH (20:31)
[2019-07-03] MEDS: Gabapentin 400 MG CAPSULE PO SCH ×3 (04:55→18:00)
[2019-07-03] MEDS: Baclofen 10 MG TABLET PO SCH ×3 (04:56→18:00)
[2019-07-03] MEDS: Cefepime HCl 2,000 MG in Water for inj. (sterile) 20 ML IVP SCH ×2 (06:24→18:01)
[2019-07-03] MEDS: *HR* Heparin 5,000 UNIT/ML VIAL SQ SCH ×2 (06:25→18:00)
[2019-07-03] MEDS: metroNIDAZOLE 500 MG TABLET PO SCH ×2 (07:55→16:09)
[2019-07-03] MEDS: *HR* LORazepam 0.5 MG TABLET PO SCH (07:55)
[2019-07-03 08:21] LABS: Alanine Aminotransferase 10 Units/L (7-52); Albumin/Globulin Ratio 0.9 (1.1-2.2); Alkaline Phosphatase 64 Units/L (34-104); Aspartate Amino Transferase 13 Units/L (13-39); BUN/Creatinine Ratio 24 (6-26); Bilirubin,Total 0.2 mg/dL (0.3-1.0); Blood Urea Nitrogen 14 mg/dL (6-20); Calcium 8.6 mg/dL (8.6-10.3); Carbon Dioxide 27 mEq/L (23-29); Chloride 104 mEq/L (98-107); Globulin 3.2 g/dL (2.4-3.5); Glucose 88 mg/dL (70-105); Osmolality,Calculated 290 (280-300); Potassium 4.1 mEq/L (3.5-5.1); Sodium 140 mEq/L (136-145); Total Protein 6.2 g/dL (6.4-8.9); eGFR For African Americans > 60 (> 60); eGFR For Non-African Americans > 60 (> 60)
[2019-07-03] MEDS ORDERED: *HR* Alteplase (Cathflo) 2 MG VIAL IVP ONE (11:31)
[2019-07-03 20:52] VITALS: BP 113/76
[2019-07-03] MEDS ORDERED: Aminoglycoside Consult 1 EACH MC ONE (21:44)
== END 2019-07-03 21:45 | disposition home health service (06) | DRG 326 ==
LOC: EMEROOARM 10:38 → 3ANU 10:38 → SUATTDRO 13:47 → 3ANU 14:44 → 2NNU 06-13 09:41 → SUATTDRO 06-13 16:01 → 3ANU 06-20 12:47
PROVIDERS: ADMIT Internal Medicine; ATTEND Family Medicine

== ENCOUNTER 2020-02-22 13:51 | Inpatient (IN) ==
[2020-02-22] MEDS ORDERED: 0.9 % Sodium Chloride 500 ML IVC ONE (16:03)
[2020-02-22 16:46] LABS: Basophils # 0.1 K/mcL (0.0-0.2); Basophils % 0.5 %; Eosinophils # 0.3 K/mcL (0.0-0.6); Eosinophils % 1.9 %; Hematocrit 53.2 % (37.5-50.1); Hemoglobin 16.4 g/dL (12.9-16.9); Immature Granulocytes % 0.4 % (0-4); Lymphocytes # 2.5 K/mcL (0.6-4.6); Mean Corpuscular HGB Conc 30.8 g/dL (31.6-35.5); Mean Corpuscular Hemoglobin 27.6 pg (28.0-33.3); Mean Corpuscular Volume 89.4 fL (83.0-100.0); Mean Platelet Volume 9.9 fL (9.4-12.4); Monocytes # 1.2 K/mcL (0.0-1.3); Monocytes % 8.7 %; Neutrophils # 9.6 K/mcL (1.6-8.9); Platelet Count 219 K/mcL (140-400); Red Blood Count 5.95 M/mcL (4.19-5.50); Segmented Neutrophils % 70.5 %; White Blood Count 13.6 K/mcL (4.3-11.1)
[2020-02-22 17:25] LABS: Troponin I < 0.03 ng/mL (< 0.04)
[2020-02-22 17:50] LABS: Alanine Aminotransferase 13 Units/L (7-52); Albumin 3.5 g/dL (3.5-5.7); Albumin/Globulin Ratio 0.9 (1.1-2.2); Alkaline Phosphatase 94 Units/L (34-104); Aspartate Amino Transferase 14 Units/L (13-39); BUN/Creatinine Ratio 14 (6-26); Bilirubin,Total 0.5 mg/dL (0.3-1.0); Blood Urea Nitrogen 25 mg/dL (6-20); Calcium 8.9 mg/dL (8.6-10.3); Carbon Dioxide 25 mEq/L (23-29); Chloride 101 mEq/L (98-107); Globulin 3.8 g/dL (2.4-3.5); Glucose 86 mg/dL (70-105); Osmolality,Calculated 286 (280-300); Sodium 136 mEq/L (136-145); Total Protein 7.3 g/dL (6.4-8.9); eGFR For African Americans 47 (> 60); eGFR For Non-African Americans 39 (> 60)
[2020-02-22 19:50] LABS: Bacteria,Urine Few per hpf (None-Few); Bilirubin,Urine Negative (Negative); Blood,Urine Moderate (Negative); Clarity,Urine Ex.Turbid (Clear); Color,Urine Light-Orange (Yellow); Glucose,Urine (UA) Normal (Normal); Ketones,Urine Negative (Negative); Leukocyte Esterase,Urine Large (Negative); Mucus,Urine Few per lpf (None-Few); Nitrite,Urine Negative (Negative); PH,Urine 6.5 pH Units (5.0-8.0); Protein,Urine >=300 mg/dL (Neg-Trace); RBC,Urine TNTC per hpf (0-3); Specific Gravity,Urine 1.022 (1.010-1.025); Urobilinogen,Urine Normal (Normal); WBC,Urine TNTC per hpf (0-3)
[2020-02-22] MEDS ORDERED: cefTRIAXone 1,000 MG in 0.9 % Sodium Chloride Mini Bag 100 ML IVPB ONE (19:53)
[2020-02-22] MEDS ORDERED: *HR* Promethazine 25 MG/ML VIAL IVP PRN (21:45)
[2020-02-22] MEDS ORDERED: Naloxone 0.4 MG/ML INJ IVP PRN (21:45)
[2020-02-22 22:38] LABS: C-Reactive Protein 204 mg/L (Less than 10)
[2020-02-23] MEDS: 0.9 % Sodium Chloride 1,000 ML IVC SCH ×2 (00:21→23:03)
[2020-02-23 06:10] LABS: Basophils # 0.1 K/mcL (0.0-0.2); Basophils % 0.6 %; Eosinophils # 0.1 K/mcL (0.0-0.6); Hematocrit 44.9 % (37.5-50.1); Immature Granulocytes % 0.3 % (0-4); Lymphocytes # 1.8 K/mcL (0.6-4.6); Lymphocytes % 15.8 %; Mean Corpuscular HGB Conc 31.8 g/dL (31.6-35.5); Mean Corpuscular Hemoglobin 28.6 pg (28.0-33.3); Mean Corpuscular Volume 89.8 fL (83.0-100.0); Mean Platelet Volume 9.8 fL (9.4-12.4); Monocytes # 0.7 K/mcL (0.0-1.3); Neutrophils # 8.8 K/mcL (1.6-8.9); Platelet Count 228 K/mcL (140-400); Red Cell Distribution Width 15.7 % (11.5-14.5); Segmented Neutrophils % 76.3 %; White Blood Count 11.5 K/mcL (4.3-11.1)
[2020-02-23 06:14] LABS: Hemoglobin 14.3 g/dL (12.9-16.9); INR 1.2; Prothrombin Time 13.5 Seconds (9.4-12.1)
[2020-02-23 06:29] LABS: Calcium 8.9 mg/dL (8.6-10.3); Magnesium 2.4 mg/dL (1.6-2.6); Phosphorous 4.9 mg/dL (2.7-4.5); Potassium 4.1 mEq/L (3.5-5.1)
[2020-02-23] MEDS: cefTRIAXone 1,000 MG in Water for inj. (sterile) 10 ML IVP SCH (08:44)
[2020-02-23] MEDS: Ringers Solution, Lactated 1,000 ML IVC SCH (14:16)
[2020-02-23] MEDS ORDERED: polyethylene glycoL 3350 17 GM POWD.PACK PO PRN (15:18)
[2020-02-23] MEDS: Morphine Sulfate 2 MG/ML SYRINGE IVP PRN (15:19)
[2020-02-23] MEDS: Baclofen 10 MG TABLET PO SCH (15:43)
[2020-02-24] MEDS: Baclofen 10 MG TABLET PO SCH ×4 (00:08→15:31)
[2020-02-24 02:24] LABS: White Blood Count 10.8 K/mcL (4.3-11.1)
[2020-02-24 02:25] LABS: Basophils # 0.1 K/mcL (0.0-0.2); Basophils % 0.6 %; Eosinophils % 0.3 %; Hematocrit 43.8 % (37.5-50.1); Hemoglobin 13.8 g/dL (12.9-16.9); Immature Granulocytes % 0.2 % (0-4); Lymphocytes # 1.6 K/mcL (0.6-4.6); Lymphocytes % 14.8 %; Mean Corpuscular HGB Conc 31.5 g/dL (31.6-35.5); Mean Corpuscular Hemoglobin 28.2 pg (28.0-33.3); Mean Corpuscular Volume 89.6 fL (83.0-100.0); Mean Platelet Volume 9.7 fL (9.4-12.4); Monocytes # 0.8 K/mcL (0.0-1.3); Monocytes % 7.5 %; Neutrophils # 8.2 K/mcL (1.6-8.9); Platelet Count 245 K/mcL (140-400); Red Blood Count 4.89 M/mcL (4.19-5.50); Red Cell Distribution Width 15.4 % (11.5-14.5); Segmented Neutrophils % 76.6 %
[2020-02-24] MEDS: Ringers Solution, Lactated 1,000 ML IVC SCH (02:28)
[2020-02-24 02:45] LABS: BUN/Creatinine Ratio 27 (6-26); Blood Urea Nitrogen 38 mg/dL (6-20); Calcium 8.4 mg/dL (8.6-10.3); Carbon Dioxide 17 mEq/L (23-29); Chloride 106 mEq/L (98-107); Glucose 62 mg/dL (70-105); Osmolality,Calculated 297 (280-300); Potassium 4.2 mEq/L (3.5-5.1); Sodium 140 mEq/L (136-145); eGFR For African Americans > 60 (> 60); eGFR For Non-African Americans 53 (> 60)
[2020-02-24] MEDS: cefTRIAXone 1,000 MG in Water for inj. (sterile) 10 ML IVP SCH (08:19)
[2020-02-24] MEDS: Piperacillin/Tazobactam 3.375 GM in 0.9 % Sodium Chloride Mini Bag 100 ML IVPB SCH (15:30)
[2020-02-25] MEDS: Piperacillin/Tazobactam 3.375 GM in 0.9 % Sodium Chloride Mini Bag 100 ML IVPB SCH ×2 (00:03→08:21)
[2020-02-25] MEDS: Baclofen 10 MG TABLET PO SCH ×5 (00:04→22:42)
[2020-02-25] MEDS: Ringers Solution, Lactated 1,000 ML IVC SCH ×2 (00:04→08:56)
[2020-02-25 05:06] LABS: Basophils # 0.1 K/mcL (0.0-0.2); Basophils % 0.7 %; Eosinophils % 0.3 %; Hematocrit 46.7 % (37.5-50.1); Hemoglobin 14.8 g/dL (12.9-16.9); Immature Granulocytes % 0.3 % (0-4); Lymphocytes # 1.2 K/mcL (0.6-4.6); Lymphocytes % 10.8 %; Mean Corpuscular HGB Conc 31.7 g/dL (31.6-35.5); Mean Corpuscular Hemoglobin 28.1 pg (28.0-33.3); Mean Corpuscular Volume 88.8 fL (83.0-100.0); Mean Platelet Volume 10.2 fL (9.4-12.4); Monocytes # 0.7 K/mcL (0.0-1.3); Monocytes % 6.8 %; Neutrophils # 8.7 K/mcL (1.6-8.9); Platelet Count 298 K/mcL (140-400); Red Blood Count 5.26 M/mcL (4.19-5.50); Red Cell Distribution Width 15.7 % (11.5-14.5); Segmented Neutrophils % 81.1 %; White Blood Count 10.7 K/mcL (4.3-11.1)
[2020-02-25 05:28] LABS: BUN/Creatinine Ratio 33 (6-26); Blood Urea Nitrogen 40 mg/dL (6-20); Calcium 9.2 mg/dL (8.6-10.3); Carbon Dioxide 20 mEq/L (23-29); Chloride 108 mEq/L (98-107); Glucose 78 mg/dL (70-105); Osmolality,Calculated 319 (280-300); Potassium 3.3 mEq/L (3.5-5.1); Sodium 150 mEq/L (136-145); eGFR For African Americans > 60 (> 60); eGFR For Non-African Americans > 60 (> 60)
[2020-02-25] MEDS: D5% in Water 1,000 ML IVC SCH (08:21)
[2020-02-25] MEDS: Potassium Chloride Elixir 20 MEQ/15 ML UDC PO SCH ×2 (08:37→20:53)
[2020-02-25] MEDS ORDERED: Potassium Chloride 40 MEQ, Lidocaine 1% 2 ML in 0.9 % Sodium Chloride 500 ML IVPB ONE (09:07)
[2020-02-25] MEDS ORDERED: Ondansetron 4 MG/2 ML VIAL IVP PRN (10:34)
[2020-02-25] MEDS: Morphine Sulfate 2 MG/ML SYRINGE IVP PRN ×2 (11:22→18:09)
[2020-02-25] MEDS: levoFLOXacin 750 MG TABLET PO SCH (12:13)
[2020-02-25] MEDS: *HR* OxyCODONE Immed Rel 5 MG TABLET PO PRN ×2 (16:16→22:42)
[2020-02-26] MEDS: D5% in Water 1,000 ML IVC SCH ×2 (00:29→10:54)
[2020-02-26] MEDS: Morphine Sulfate 2 MG/ML SYRINGE IVP PRN (00:29)
[2020-02-26] MEDS: Baclofen 10 MG TABLET PO SCH ×2 (05:29→12:06)
[2020-02-26 07:12] VITALS: BP 153/84
[2020-02-26 08:42] LABS: Basophils # 0.1 K/mcL (0.0-0.2); Basophils % 0.5 %; Eosinophils % 0.1 %; Hematocrit 40.9 % (37.5-50.1); Immature Granulocytes % 0.4 % (0-4); Lymphocytes # 2.1 K/mcL (0.6-4.6); Lymphocytes % 20.1 %; Mean Corpuscular Hemoglobin 28.7 pg (28.0-33.3); Mean Corpuscular Volume 89.5 fL (83.0-100.0); Neutrophils # 7.1 K/mcL (1.6-8.9); Platelet Count 200 K/mcL (140-400); Red Blood Count 4.57 M/mcL (4.19-5.50); Red Cell Distribution Width 15.4 % (11.5-14.5); Segmented Neutrophils % 68.9 %; White Blood Count 10.3 K/mcL (4.3-11.1)
[2020-02-26 08:45] LABS: BUN/Creatinine Ratio 32 (6-26); Blood Urea Nitrogen 24 mg/dL (6-20); Calcium 8.4 mg/dL (8.6-10.3); Carbon Dioxide 25 mEq/L (23-29); Chloride 108 mEq/L (98-107); Glucose 126 mg/dL (70-105); Osmolality,Calculated 294 (280-300); Potassium 3.4 mEq/L (3.5-5.1); Sodium 139 mEq/L (136-145); eGFR For African Americans > 60 (> 60); eGFR For Non-African Americans > 60 (> 60)
[2020-02-26 08:52] LABS: Hemoglobin 13.1 g/dL (12.9-16.9)
[2020-02-26] MEDS: levoFLOXacin 750 MG TABLET PO SCH (08:58)
[2020-02-26] MEDS: Potassium Chloride Elixir 20 MEQ/15 ML UDC PO SCH (09:00)
[2020-02-26] MEDS: *HR* OxyCODONE Immed Rel 5 MG TABLET PO PRN (12:06)
== END 2020-02-26 12:46 | disposition home health service (06) | DRG 698 ==
LOC: EMEROOARM 13:51 → 3BNU 13:51 → SUATTDRO 20:34 → 3BNU 20:37
PROVIDERS: ADMIT Student in an Organized Health Care Education/Training Program; ATTEND Family Medicine